=== PATIENT | female | born 1930 | race Caucasian/White ===

== ENCOUNTER 2017-01-23 12:18 | Inpatient (IN) | payer BC, MEDICARE ==
[2017-01-23 13:23] LABS: #Lymphocytes 0.5 thou/uL (1.20-3.40); #Monocytes 0.7 thou/uL (0.11-0.59); #Neutrophils 10.1 thou/uL (1.40-6.50); %Eosinophils 0.1 % (0.0-10.0); %Lymphocytes 4.6 % (21.0-51.0); %Monocytes 6.3 % (0.0-10.0); Hematocrit 41.7 % (36.0-47.0); Mean Platelet Volume 7.6 fL (7.4-10.4); Red Blood Cell (RBC) Count 4.13 mill/uL (4.20-5.40); White Blood Cell (WBC) Count 11.4 thou/uL (4.8-10.8)
[2017-01-23 13:49] LABS: ALT (SGPT) 16 U/L (8-55); AST (SGOT) 22 U/L (5-34); Alkaline Phosphatase 67 U/L (40-150); Anion Gap 10 mmol/L (10-20); BUN (Urea Nitrogen) 15 mg/dL (9.8-20.1); Bilirubin, Total 0.7 mg/dL (0.2-1.2); Calc. Creatinine Clearance 0 mL/min (70-130); Calcium 10.4 mg/dL (7.8-10.44); Carbon Dioxide 29 mmol/L (23-31); Chloride 101 mmol/L (98-107); Estimated GFR-MDRD 69; Globulin 3.5 g/dL (2.4-3.5); Lipase 12 U/L (8-78); Protein, Total 7.5 g/dL (6.0-8.3)
[2017-01-23] MEDS ORDERED: Iopamidol 370 76% 100 ML VIAL ONE (13:57)
--- NOTE | 2017-01-23 15:31 | RAD ---
TWO VIEWS LEFT HIP: History: Trauma. Fall. Left hip pain. FINDINGS: AP and frogleg views of the left hip obtained and demonstrate no evidence of left hip fractures, subl uxations, or bony lesions. There may be an area of lucency in the left iliac crest. IMPRESSION: 1. Possible left iliac crest lytic lesion. Correlation with CT of pelvis is recommended. 2. No other left hip abnormalities seen. No evidence of acute left hip fracture seen. POS: [facility]
--- NOTE | 2017-01-23 15:32 | RAD ---
AP CHEST: History: Dyspnea, history of fall. FINDINGS: The lungs are well aerated. No evidence of active intrathoracic disease seen. No evidence of effusion s, pneumonia or pneumothorax seen. Calcification of the aorta is seen. IMPRESSION: Calcification of the aorta. Otherwise, unremarkable AP view chest. POS: [facility]
--- NOTE | 2017-01-23 15:34 | RAD ---
AP PELVIS: History: Multiple falls, left pelvic pain. FINDINGS: There is an area of lucency over the left iliac wing. This may represent a lytic lesion versus stool in the colon. No evidence of acute pelvic fractures or bony lesions seen. IMPRESSION: Possible lytic lesion in the left iliac bone versus gas in the colon. No other acute abnormality is s een. POS: [facility]
[2017-01-23 15:54] LABS: Troponin I 0.017 ng/mL (< 0.028)
[2017-01-23 16:41] LABS: PTT 28.2 SEC (22.9-36.1); Prothrombin Time 13.6 SEC (12.0-14.7)
[2017-01-23 17:25] LABS: Bilirubin Negative (Negative); Blood, Urine Trace (Negative); Glucose, Urine (Dipstick) Negative (Negative); Ketone, Urine 40 mg/dL (Negative); Nitrite Negative (Negative); Protein, Urine (Dipstick) 100 mg/dL (Neg-Trace)
[2017-01-23 17:28] LABS: Bacteria/HPF Rare-Few HPF (None Seen); Hyaline Casts/LPF 0-3 HYALINE CAST LPF (0-3 Hyaline)
[2017-01-23 17:36] LABS: RBC/HPF 0-3 HPF (0-3)
--- NOTE | 2017-01-23 17:50 | CT ---
CT ANGIOGRAM OF THE CHEST: History: Assess pulmonary artery embolism. Nausea. Dizziness. Dyspnea. Comparison: None. Technique: CT angiogram of the chest was performed in the axial plane. Bilateral oblique and coronal 3D reformatted images are submitted for interpretation. FINDINGS: There is no mediastinal mass, lymphadenopathy or hematoma. Heart size is upper normal. No significant pericardial fluid. The visualized aorta has an overall normal caliber. Atherosclerosis is noted. No periaortic fat stranding. Visualized upper solid organs are unremarkable. There is dependent atelectatic change in the lung parenchymal. Minimal ground glass opacities in both lower lobes. Subsegmental atelectasis and scarring in both lower lobes. No suspicious masses. No con solidation. No pleural effusion. No pneumothorax. Trachea and central bronchi are patent. Adequate contrast opacification of pulmonary arterial system at the level of the segmental arteries. With regard to the left pulmonary arterial system no filling defect to suggest thromboembolism. There is a filling defect involving segmental branches involving the right lower lobe. There are no lytic or blastic lesions in the osseous structures. IMPRESSION: 1. Segmental branch pulmonary artery emboli involving the right lower lobe. Results of study pratibha barrientos with Dr. Santos 12-4-17 at 5:31 p.m. Code CR. POS: [facility]
[2017-01-23] MEDS ORDERED: Enoxaparin Sodium 60 MG/0.6 ML SYRINGE ONE (18:36)
[2017-01-23 19:28] LABS: Troponin I 0.027 ng/mL (< 0.028)
[2017-01-23 21:53] LABS: Troponin I 0.027 ng/mL (< 0.028)
--- NOTE | 2017-01-23 21:58 | PDOC.EVN ---
Event Note - Event Note Event Note: [id number] H&P Dictated 1. Rt side PE 2. UTI 3. Left iliac lesion 4. HTN 5. Asthma plan: see orders
[2017-01-23] MEDS ORDERED: Acetaminophen 325 MG TAB PO PRN (22:48)
[2017-01-23] MEDS ORDERED: Ondansetron HCl/PF 4 MG/2 ML Vial IVP PRN (22:48)
--- NOTE | 2017-01-23 23:56 | CT ---
PELVIC CT WITHOUT CONTRAST: History: Multiple falls, pain. Evaluate for fracture. Sharp pain in the left femur when standing. Comparison: None. Technique: Noncontrast pelvic CT is performed in the axial plane. Reformatted images are submitted fo r interpretation. FINDINGS: Visualized alimentary canal is unremarkable. There is atherosclerosis in the visualized aorta and bibi ac arteries. Symmetric attenuation of the psoas muscles. There is evidence of colonic diverticulosis, without evidence of diverticulitis. Normal caliber appendix is identified. Contrast is noted in the dependent portion of the urinary bladder. There is diffuse bone demineralization. No sacral fractures. Sacral ala are preserved. There is vacuu m joint phenomenon in both sacroiliac joints. The bony pelvis is intact. There is mild degenerative change in both hips. Right hip is unremarkable. There is sharp angulation with minimal deformity involving the superior lateral aspect of the left subcapital region. The possi bility of a fracture in this region is raised. Confirmation with MRI may be beneficial. No evidence of a pubic ramus fracture. There is no evidence of a lytic lesion in the left iliac bone, as suggested on previous radiograph. T here is evidence of bone demineralization with patchy areas of fatty marrow. IMPRESSION: 1. Possible left subcapital fracture with cortical irregularity. POS: [facility]
[2017-01-24 04:17] LABS: Anion Gap 13 mmol/L (10-20); BUN (Urea Nitrogen) 12 mg/dL (9.8-20.1); Calc. Creatinine Clearance 0 mL/min (70-130); Calcium 9.7 mg/dL (7.8-10.44); Carbon Dioxide 24 mmol/L (23-31); Chloride 104 mmol/L (98-107); Estimated GFR-MDRD 87
[2017-01-24 04:24] LABS: Band 1 % (5-11); Hematocrit 39.8 % (36.0-47.0); Mean Platelet Volume 8.6 fL (7.4-10.4); Neutrophil 64 % (42-75); Red Blood Cell (RBC) Count 3.93 mill/uL (4.20-5.40)
--- NOTE | 2017-01-24 05:56 | HP ---
DATE OF ADMISSION: 01/23/2017 CHIEF COMPLAINT: Fall. HISTORY OF PRESENT ILLNESS: Patient is an 86-year-old female with past medical history of hypertensi on, asthma, now came to the hospital because of fall. Patient said she lives at home. She went and picked her dog from 's house and while she came back, when she tried to get out of the car, th e dog jumped out and then she tried to get out of the car and she lost balance and she fell down. Si nce then she was having left hip pain. Pain is constant, worsens with movement, moderate in intensit y. Denies any fever, denies any chills, denies any cough, denies sputum production. Denies any head injury. The patient's pain persisted, that is why the son brought her to the ER. Upon ER arrival, the patient was found to be in atrial fibrillation RVR, so patient was given Cardizem 20 mg IV x2 dos es in the ER. Patient denies any chest pain, denies any palpitations, denies any nausea, denies any vomiting, denies any sputum production. PAST MEDICAL HISTORY: As per HPI. PAST SURGICAL HISTORY: Hysterectomy and bilateral knee surgeries. SOCIAL HISTORY: Denies smoking, denies alcohol, denies any drugs. FAMILY HISTORY: Positive for heart problems. REVIEW OF SYSTEMS: Constitutional: Denies any fever, denies any chills. Eyes: Denies vision problems. Ears: Denies any hearing loss. Neck: Denies any neck pain. Cardiovascular: Denies any chest pain. Denies any palpitations. Respiratory: Denies any cough, denies sputum production. Gastrointestinal: Denies a ny nausea, vomiting. Musculoskeletal: Positive for left hip pain. Integumentary: Denies any rash. Psychiatry: Denies anxiety. Cranial nerve system: Denies syncope. All other review of systems a re reviewed and are negative. PHYSICAL EXAMINATION: CONSTITUTIONAL/VITAL SIGNS: At the time of H&P performed, blood pressure is 113/70, heart rate of 10 5, respiratory rate 18. GENERAL APPEARANCE: Patient appears tired, anterior nares patent. HEENT: Normal. Ears normal. Teeth intact. Tongue is moist. NECK: Supple, no JVD. CARDIOVASCULAR: S1, S2 present, irregular, no murmurs, no rubs, no gallops, mildly tachycardic. RESPIRATORY: Diminished breath sounds bilaterally. No wheezing, no rhonchi. Breath sounds bilatera lly. GASTROINTESTINAL: Abdomen is soft, nontender, no guarding, no organomegaly, no masses felt. MUSCULOSKELETAL: Left hip tender to palpate, able to move PSYCHIATRIC: Mood appropriate at this time. CRANIAL NERVE SYSTEM: Cranial nerves intact. Follows commands. Strength intact, sensory intact. LABORATORY DATA: At the time of H&P performed, white count of 11.4, hemoglobin 13.9, platelet count is 250. PT 13.6, INR 1.0. BMP showed sodium 136, potassium 3.9, chloride 101, CO2 of 29, BUN of 1 5, creatinine 0.79. BNP 257, troponin 0.027. Lipase 12. CT chest positive for segmental branch pul monary artery embolism involving the right lower lobe. Pelvis x-ray positive for left iliac crest ly tic lesion seen. ASSESSMENT AND PLAN: The patient is an 86-year-old female. 1. Right-side pulmonary embolism. ED physician restarted the Lovenox. We will continue Lovenox. W e will go ahead and consult oncologist of the patient. We will monitor the patient closely. 2. Atrial fibrillation with rapid ventricular response. Heart rate controlled at this time. We radha l monitor heart rate. We will place patient on tele. We will get Cardiology to evaluate the patient . 3. Left iliac crest lesion, rule out multiple myeloma. We will go ahead and get CT pelvis to evalua te the hip lesion. We will wait for Oncology input. We will go ahead and get skeletal survey if kishan ilable. We will monitor the patient closely. 4. History of hypertension, monitor blood pressures, continue home medications. 5. History of asthma, continue breathing treatments. 6. Urinary tract infection. Plan to start patient on IV antibiotics. The case was discussed in detail with the patient.
[2017-01-24 08:33] LABS: Troponin I 0.047 ng/mL (< 0.028)
[2017-01-24] MEDS ORDERED: Heparin 1,000 UNITS/ML VIAL ONE (09:15)
[2017-01-24] MEDS ORDERED: Famotidine 20 MG TAB ONE (09:15)
[2017-01-24] MEDS ORDERED: Enoxaparin Sodium 60 MG/0.6 ML SYRINGE ONE (09:17)
--- NOTE | 2017-01-24 13:04 | CON ---
DATE OF CONSULTATION: 01/24/2017 REQUESTING PHYSICIAN: Dr. Randy mckeon. CONSULTING PHYSICIAN: Dr. Clemente Diamond. REASON FOR CONSULTAITON: Left hip pain. HISTORY OF PRESENT ILLNESS: Ms. Vizcarra is an 86-year-old white female who was admitted yesterday to the medicine service after she fell getting out of a truck. She had left thigh discomfort, so a CT examination was carried out of the pelvis, which demonstrated a lesion unexplained origin and she was also found to be in atrial fibrillation with rapid ventricular response and I believe there is some suspicion of a right-sided pulmonary embolism as well. The CT demonstrated evidence of possibly a no ndisplaced left subcapital femoral neck fracture, which was difficult to discern, but our service was consulted for evaluation of this. The patient has been able to stand and walk since hospitalization . She does admit to a little bit of mid posterior thigh discomfort on the left. It is amplified sli ghtly with walking, but she has been able to walk for the last 24 hours in and around her room and sh e has no pain when she sits. PAST MEDICAL HISTORY: Significant for acute segmental branch pulmonary embolism in the right lower l obe and left iliac crest lesion and atrial fibrillation with rapid ventricular response. PHYSICAL EXAMINATION: NEUROLOGIC: Patient is examined in the seated position. She is able to stand without any pain or pr oblems. She can squat down without any discomfort. I can only reproduce provocative pain with inter nal and external femoral rotation, but it appears to be mild at best. Palpation along the thigh does not reproduce or provoke any discomfort. She is stable and there appear to be no underlying instabi lity. There is no significant swelling, erythema or bruising noted. She is neurovascularly intact i n the left lower extremity as well as her right. She stands comfortably. IMAGING STUDIES: CT examination of the pelvis, there is a question of a subcapital cortical defect. There does not appear to be any displacement. IMPRESSION: 1. I suspect a periosteal contusion from a fall. Patient can stand, walk and bear weight without si gnificant limp problem. The physical examination is not suggestive of a fracture of the femur or fem oral head at this point. 2. Atrial fibrillation with rapid ventricular response, resolved. 3. Right-sided pulmonary embolism, currently under treatment. PLAN: At this point, I will allow the patient to eat. I have no surgical plans, but we will revisit her clinically for serial examinations to see if we should proceed with further studies to include M RI of the left hip. We will reexamine the patient this evening.
--- NOTE | 2017-01-24 13:45 | PDOC.PN ---
- Subjective Encounter Start Date: 01/24/17 Encounter Start Time: 14:00 -: old records requested/rev Pt seen and examined, chart reviewed in its entirety. Case discussed with Mr Sanchez and Dr Diamond face to face. No F/C, no N/V/D/C,no CP or SOB. Pt with fall and left hip pain. Xray neg, but CT questionable for SC fracture. awaiting ortho review. during workup in ER, CTA positive for PE. Starte franci lovenox. Pt noted to be in Afib no CP, no palpitations 10 point ROS performed and neg for all systems except as above - Objective MAR Reviewed: Yes Result Diagrams: 01/24/17 03:23 01/24/17 03:23 Radiology Reviewed by me: Yes EKG Reviewed by me: Yes Phys Exam - Physical Examination Constitutional: NAD HEENT: PERRLA, moist MMs, sclera anicteric, oral pharynx no lesions Neck: no nodes, no JVD, supple, full ROM Respiratory: no wheezing, no rales, no rhonchi, clear to auscultation bilateral Cardiovascular: no significant murmur, no rub, irregular Gastrointestinal: soft, non-tender, no distention, positive bowel sounds Musculoskeletal: no edema, pulses present left hip a little tender Neurological: non-focal, normal sensation, moves all 4 limbs Lymphatic: no nodes Psychiatric: normal affect, A&O x 3 Skin: no rash, normal turgor, cap refill <2 seconds Dx/Plan (1) Pulmonary embolus, right Code(s): I26.99 - OTHER PULMONARY EMBOLISM WITHOUT ACUTE COR PULMONALE Status : Acute (2) Fall on same level as cause of accidental injury Code(s): W18.30XA - FALL ON SAME LEVEL, UNSPECIFIED, INITIAL ENCOUNTER Status : Acute (3) Left hip pain Code(s): M25.552 - PAIN IN LEFT HIP Status: Acute (4) Paroxysmal atrial fibrillation Code(s): I48.0 - PAROXYSMAL ATRIAL FIBRILLATION Status: Acute - Plan cont current plan of care * . folowup on ortho recs. Doubt UTI. followup on onc, cardiology, and ortho recommendations as ordered by electromechanical engineer
[2017-01-24] MEDS: Enoxaparin Sodium 60 MG/0.6 ML SYRINGE SC SCH ×2 (14:41→20:28)
[2017-01-24] MEDS: Meropenem 1 GM in Sodium Chloride 0.9% 100 ML IVPB SCH ×3 (14:41→22:32)
[2017-01-24] MEDS: Sodium Chloride 0.9% 1,000 ML IV SCH (14:41)
[2017-01-24] MEDS: Famotidine 20 MG TAB PO SCH ×2 (14:42→20:25)
--- NOTE | 2017-01-24 17:01 | CON ---
DATE OF CONSULTATION: 01/24/2017 HISTORY OF PRESENT ILLNESS: The patient is an 86-year-old woman who presents after having a fall and was noted to be in irregular heart rhythm. The patient has a previous history of coronary artery disease. In 1991 ,he underwent a cardiac catheterization and subsequently underwent PTCA of a 90% LAD lesion. The patient subsequently has done very well. She has had no further cardiac episodes. The patient recently had a fall. She was noted to be in irregular heart rhythm. The patient denies having any palpitations. The patient denies having any chest discomfort. She reports having dyspnea. She denies having any PND or orthopnea. PAST MEDICAL HISTORY: 1. Hypertension. 2. CAD. PAST SURGICAL HISTORY: Hysterectomy and knee surgery. SOCIAL HISTORY: Former smoker. ALLERGIES: No known drug allergies. FAMILY HISTORY: Positive family history of heart disease. Father had coronary artery disease. MEDICATIONS ON ADMISSION: Cardizem 240 daily, Evista 60 daily, zafirlukast 20 daily. REVIEW OF SYSTEMS: Ten-point system otherwise unremarkable. No history of easy bruising or bleeding, bright red blood per rectum, hematuria, constipation , diarrhea. PHYSICAL EXAMINATION: GENERAL: Elderly woman, in no acute distress. VITAL SIGNS: Blood pressure 140/80, heart rate was 110 and irregular. NECK: No jugular venous distention. LUNGS: Clear to auscultation. HEART: Irregular rate and rhythm, normal S1, S2, no murmurs. ABDOMEN: Nondistended. EXTREMITIES: Showed no edema. SKIN: Warm and dry. NEUROLOGIC: Nonfocal. VASCULAR: Radial pulses are 2+. LABORATORY RESULTS: Her sodium 137, potassium 3.9, chloride 104, bicarbonate 24 , BUN 12, creatinine 0.65, glucose is 87, troponin 0.04. White blood cell count was 8.0, hemoglobin 13.3, hematocrit 39.3 and her platelets were 250. Her EKG revealed her to have multifocal atrial tachycardia with a nonspecific ST -T wave abnormality. CT scan revealed pulmonary emboli. IMPRESSION: 1. Multifocal atrial tachycardia. 2. Pulmonary embolus. 3. History of asthma. 4. Hypertension. 5. Coronary artery disease. This patient presented with a fall and was found to have suffered a pulmonary embolus. The patient is in multifocal atrial tachycardia. We would treat the patient with Cardizem. We will follow this patient with you through her hospitalization. [facility]
[2017-01-25 06:24] LABS: #Basophils 0.1 thou/uL (0.0-0.2); #Eosinphils 0.1 thou/uL (0.0-0.7); #Lymphocytes 2.1 thou/uL (1.20-3.40); #Monocytes 1.1 thou/uL (0.11-0.59); %Basophils 0.6 % (0.0-1.0); %Lymphocytes 22.6 % (21.0-51.0); %Monocytes 11.3 % (0.0-10.0); Hematocrit 39.3 % (36.0-47.0); Mean Platelet Volume 8.6 fL (7.4-10.4); White Blood Cell (WBC) Count 9.3 thou/uL (4.8-10.8)
[2017-01-25] MEDS: Meropenem 1 GM in Sodium Chloride 0.9% 100 ML IVPB SCH (06:29)
[2017-01-25 06:32] LABS: Anion Gap 11 mmol/L (10-20); BUN (Urea Nitrogen) 8 mg/dL (9.8-20.1); Calc. Creatinine Clearance 57 mL/min (70-130); Calcium 9.5 mg/dL (7.8-10.44); Carbon Dioxide 28 mmol/L (23-31); Chloride 104 mmol/L (98-107); Estimated GFR-MDRD 87; Magnesium 2.3 mg/dL (1.6-2.6)
[2017-01-25] MEDS ORDERED: Fluticasone Propionate Nasal Spray 16 gm Bottle NASAL PRN (08:19)
[2017-01-25] MEDS ORDERED: Albuterol Sulfate 2.5 mg/3 ml Neb NEB PRN (08:20)
[2017-01-25] MEDS ORDERED: ZAFIRLUKAST 20 MG PO SCH (09:00)
[2017-01-25] MEDS ORDERED: Montelukast Sodium 10 mg Tablet PO SCH (09:00)
[2017-01-25] MEDS ORDERED: PROVENTIL INHALER 6.7 G (200 INHALATIONS) INH PRN (09:03)
[2017-01-25] MEDS: Cephalexin 250 MG CAP PO SCH ×2 (09:37→14:54)
[2017-01-25] MEDS: Enoxaparin Sodium 60 MG/0.6 ML SYRINGE SC SCH (09:38)
[2017-01-25] MEDS: Sodium Chloride 0.9% 1,000 ML IV SCH (14:57)
[2017-01-25 16:31] VITALS: BP 143/70; TEMP 99.4
[2017-01-25] MEDS ORDERED: Rivaroxaban 15 MG TAB PO SCH (17:00)
[2017-01-25] MEDS ORDERED: Famotidine 20 MG TAB PO SCH (21:00)
== END 2017-01-25 18:43 | disposition home or self-care (01) | DRG 176 ==
LOC: ERS 12:18 → ERHOLD 17:51 → 2NO 01-24 12:09
PROVIDERS: ADMIT Internal Medicine; ATTEND Internal Medicine
DX: I26.99 Other pulmonary embolism without acute cor pulmonale (principal); I48.91 Unspecified atrial fibrillation; N39.0 Urinary tract infection, site not specified; I10 Essential (primary) hypertension; Z91.81 History of falling; I25.10 Atherosclerotic heart disease of native coronary artery without angina pectoris; E78.5 Hyperlipidemia, unspecified; Z87.891 Personal history of nicotine dependence; J45.909 Unspecified asthma, uncomplicated; S30.0XXA Contusion of lower back and pelvis, initial encounter; W19.XXXA Unspecified fall, initial encounter
CPT/HCPCS: 36415; 71010; 71275; 72170; 72192; 80048; 80053; 81003; 81015; 82553; 83690; 83735; 83880; 84484; 85025; 85379; 85610; 85730; 87077; 87086; 87186; 93005; 93306; 94640; 96361; 96372; 96374; 96375; 96376; A4216; G8978-GP-CI; G8979-GP-CI; G8980-GP-CI; G8987-GO-CK; G8988-GO-CI; J0696; J1644; J1650; J2185; J7050

== ENCOUNTER 2017-01-29 04:19 | Inpatient (IN) | payer MEDICARE ==
[2017-01-29 05:14] LABS: #Eosinphils 0.1 thou/uL (0.0-0.7); #Lymphocytes 1.5 thou/uL (1.20-3.40); #Monocytes 0.8 thou/uL (0.11-0.59); %Basophils 0.5 % (0.0-1.0); %Eosinophils 1.6 % (0.0-10.0); %Lymphocytes 17.8 % (21.0-51.0); %Monocytes 9.7 % (0.0-10.0); Mean Platelet Volume 7.8 fL (7.4-10.4); Red Blood Cell (RBC) Count 4.11 mill/uL (4.20-5.40); White Blood Cell (WBC) Count 8.5 thou/uL (4.8-10.8)
[2017-01-29 05:19] LABS: PTT 32.7 SEC (22.9-36.1); Prothrombin Time 14.5 SEC (12.0-14.7)
[2017-01-29 05:36] LABS: Anion Gap 13 mmol/L (10-20); BUN (Urea Nitrogen) 11 mg/dL (9.8-20.1); CK (CPK) 83 U/L (29-168); Calc. Creatinine Clearance 0 mL/min (70-130); Calcium 10.3 mg/dL (7.8-10.44); Carbon Dioxide 26 mmol/L (23-31); Chloride 102 mmol/L (98-107); Estimated GFR-MDRD 76
[2017-01-29 05:39] LABS: Troponin I 0.018 ng/mL (< 0.028)
[2017-01-29] MEDS ORDERED: HYDROcodone/Acetaminophen 5/325 mg Tablet ONE (06:37)
[2017-01-29 06:43] LABS: Bilirubin Negative (Negative); Blood, Urine Negative (Negative); Glucose, Urine (Dipstick) Negative (Negative); Ketone, Urine Negative (Negative); Nitrite Negative (Negative); Protein, Urine (Dipstick) Negative (Neg-Trace)
[2017-01-29] MEDS ORDERED: Methocarbamol 1 GM in Sodium Chloride 0.9% 250 ML 250 ML IVPB SCH (07:45)
--- NOTE | 2017-01-29 08:06 | RAD ---
CHEST 1 VIEW: Date: 01/29/17 COMPARISON: 01/23/17. HISTORY: Fall. Pain. FINDINGS: Atherosclerosis of aorta. Normal cardiac silhouette. Pulmonary vessels and hilum are normal. Costophr enic angles are clear. No masses or consolidation. Chronic changes are noted. No pneumothorax or osse ous abnormalities. Mild bone demineralization is identified. Stable degenerative changes of the spine . IMPRESSION: 1. No post-traumatic sequelae. 2. Atherosclerosis. POS: [facility]
--- NOTE | 2017-01-29 08:53 | RAD ---
LEFT HIP 2 VIEWS: Date: 01/29/17 HISTORY: Fall. Pain. Trauma. COMPARISON: 01/23/17. CORRELATION: Pelvic CT dated 01/23/17. FINDINGS: There is an interval sclerosis involving the left subcapital region with slight displacement, compati ble with a subacute fracture. IMPRESSION: Subacute fracture involving the left subcapital region. Results of study discussed with Dr. Perez on 01/29/17 at 0823 hours. CODE CR. POS: [facility]
--- NOTE | 2017-01-29 09:19 | RAD ---
RIGHT HIP 2 VIEWS: Date: 01/29/17 HISTORY: Fall. Trauma. Pain. COMPARISON: None. FINDINGS: Contour of the right femoral head is maintained. No fracture. Moderate loss of joint space height. Visualized bony pelvis is intact. IMPRESSION: No fracture. POS: [facility]
[2017-01-29] MEDS ORDERED: Morphine 2 mg/2ml in 0.9% NaCl PF SYRINGE ONE (09:20)
--- NOTE | 2017-01-29 10:27 | RAD ---
1 VIEW PELVIS: Date: 01/29/17 COMPARISON: 01/23/17. FINDINGS: The bony pelvis is intact. Right hip is unremarkable. There is evidence of a left subcapital fracture with sclerosis. IMPRESSION: Left subcapital fracture. POS: [facility]
[2017-01-29] MEDS ORDERED: Cyclobenzaprine 10 MG TAB PO PRN (11:33)
[2017-01-29] MEDS ORDERED: Ondansetron ODT 4 MG TAB PO PRN (11:33)
[2017-01-29] MEDS ORDERED: Ondansetron HCl/PF 4 MG/2 ML Vial IVP PRN ×2 (11:33→15:25)
[2017-01-29] MEDS ORDERED: Dextrose 50% Abboject 50 ML SYRINGE SLOW IVP PRN (11:33)
[2017-01-29] MEDS ORDERED: Dextrose 5% in Water 1,000 ML IV PRN (11:33)
[2017-01-29] MEDS ORDERED: traMADol HCl 50 MG TAB PO PRN (11:33)
[2017-01-29] MEDS ORDERED: ISOVUE-370 76%-LOCM 1 ML ONE (11:46)
[2017-01-29] MEDS ORDERED: Morphine 2 mg/2ml in 0.9% NaCl PF SYRINGE IVP PRN (12:00)
[2017-01-29] MEDS ORDERED: Propofol 200 MG/20 ML VIAL ONE (12:05)
[2017-01-29] MEDS ORDERED: Morphine 4 MG/ML VIAL IV PRN (12:15)
[2017-01-29] MEDS: Acetaminophen 325 MG TAB PO SCH ×3 (12:43→22:12)
[2017-01-29] MEDS: Ibuprofen 600 MG TAB PO SCH ×2 (12:43→22:15)
[2017-01-29] MEDS: Sodium Chloride 0.9% 1,000 ML IV SCH (12:45)
--- NOTE | 2017-01-29 13:14 | HP ---
DATE OF ADMISSION: 01/29/2017 REQUESTING PHYSICIAN: Dr. Perez. ATTENDING SURGEON: Dr. Snow. CONSULTATION: Orthopedics, Dr. Bowden. HISTORY OF PRESENT ILLNESS: The patient is an 86-year-old woman who has reportedly fell at home. She is amnestic to the events, but was reportedly found by neighbors. Even the story around that is unclear as there is no one here to explain that situation, the patient again is amnestic to t he events. When she underwent evaluation and examination in the emergency department, she was noted to have a hip fracture, at which time we were asked to evaluate the patient for admission and obtain orthopedic consultation. ALLERGIES: None. CURRENT MEDICATIONS: Diltiazem, fluticasone, ProAir, raloxifene, zafirlukast and Xarelto. PAST MEDICAL HISTORY: Asthma, hypertension, atrial fibrillation. PAST SURGICAL HISTORY: Hysterectomy. SOCIAL HISTORY: Patient lives at home alone. Denies drug, alcohol or tobacco use. REVIEW OF SYSTEMS: A 10-point review of systems is negative, unless otherwise stated. Of note, the patient was medicated with 4 mg of morphine prior to my arrival and was extremely sleepy, but accordi ng to the nurse, patient prior to that medication was alert and oriented and verbally appropriate, on ly amnestic to the events surrounding her fall. PHYSICAL EXAMINATION: VITAL SIGNS: Blood pressure 137/71, heart rate 75, respirations 18 and oxygen saturation is 100% on 2 liters via nasal cannula. GENERAL: The patient is resting comfortably in bed. When awakened, she is alert and oriented x3, bu t does appear very drowsy. Allyn coma scale is 14. HEENT: Unremarkable. Head is atraumatic, normocephalic. Eyes: Extraocular motion intact. PERRLA bilaterally. Ears are atraumatic without discharge. Nose is atraumatic without discharge. Orophary nx is clear. NECK: Nontender. Trachea is midline. No JVD. CHEST: Clear to auscultation with good inspiratory and expiratory effort. HEART: Irregularly irregular consistent with her atrial fibrillation. ABDOMEN: Soft, flat, and nontender. PELVIS: Stable. The patient does have tenderness to her left hip. EXTREMITIES: Neurovascularly intact x4. BACK: By report is atraumatic and nontender. LABORATORY DATA: White blood cell count 8.5, hemoglobin 13.8, hematocrit 42, platelets 287. Sodium 137, potassium 4.4, chloride 102, CO2 26, BUN 11, creatinine 0.73, glucose 115. CK 83 and CK-MB 2.7. Troponin 0.018, PTT 33, PT 15, and INR 1.1. RADIOGRAPHS: Two views of the right hip showed no fracture. Two views of the left hip showed a suba cute fracture involving the left subcapital region. AP chest shows no post-traumatic sequelae. ASSESSMENT AND PLAN: 1. Status post fall. 2. Left subcapital hip fracture. 3. Acute traumatic pain. 4. History of atrial fibrillation on Xarelto. Plan will be to admit the patient to the surgical floor, await evaluation by the orthopedic surgeon i n regards to operative intervention. The patient will be made n.p.o. until a decision is made. The evaluation, examination, radiographic and laboratory findings were all discussed with Dr. Snow at the time of dictation.
[2017-01-29] MEDS ORDERED: Neomycin-Polymyxin 1 ML AMP ONE (13:42)
[2017-01-29] MEDS ORDERED: Diprivan 20 ML ONE (13:54)
[2017-01-29] MEDS ORDERED: CEFAZOLIN/Water 2 GM/20 ML SYRINGE ONE (14:21)
--- NOTE | 2017-01-29 14:31 | HP ---
ADDENDUM This is an addendum to the H and P dictated by Rylan Mondragon, trauma PA. For further details, please se e his report. In summary, the patient is an 86-year-old frail elder with multiple falls recently, who came to the ospital on the of this month with a complaint of dyspnea, weakness and left hip pain. She had a possible cortical irregularity in subcapital area on CT, but no definite fracture was seen on plain f ilms. She was seen by Orthopedics and felt to be safe to ambulate, they felt that this likely repres ented a contusion. She was found to be in atrial fibrillation with a branch pulmonary artery embolis m and was started on Xarelto and Cardizem. She converted to normal sinus rhythm and was discharged [facility] on the . She came back to the hospital early this morning after being found down by her famil y. The patient herself does not remember falling, does not remember being found and does not remembe r coming into the hospital. She is oriented to self and place, but not to time or situation. Curren ross, she denies any pain, but on her arrival, she was complaining of left hip pain and imaging showed a subcapital subacute fracture. She denies shortness of breath or chest pain and is very somnolent but will arouse to answer questions. PAST MEDICAL HISTORY: Hypertension, recently diagnosed atrial fibrillation and pulmonary embolism, c oronary artery disease status post stenting many years ago, and asthma. PAST SURGICAL HISTORY: Hysterectomy, bilateral knee surgery, coronary artery stenting in 1991. SOCIAL HISTORY: She is a former smoker, but no recent history of tobacco, alcohol or drug abuse. ALLERGIES: She has no known drug allergies. FAMILY HISTORY: She has a family history of heart disease. MEDICATIONS: At the time of her discharge on the included Xarelto, Keflex, raloxifene, albuterol inhaler, Flonase, diltiazem, zafirlukast. REVIEW OF SYSTEMS: Limited due to patient's somnolent, but she denies chest pain, abdominal pain, na usea, shortness of breath or pain in her left hip except with movement. PHYSICAL EXAMINATION: VITAL SIGNS: 97.7, heart rate 80, respirations 22, 98% saturated on nasal cannula, blood pressure 15 3/82. GENERAL: Reveals an extremely frail appearing elderly woman in no acute distress, sleeping, but arou sable to voice and painful stimuli. She quickly falls back asleep when she is not being stimulated. HEENT: Unremarkable. Head is normocephalic, atraumatic. Pupils are equal. NECK: Supple, without lymphadenopathy or thyroid nodules. HEART: Regular in its rate and rhythm without murmurs, rubs or gallops. LUNGS: Clear to auscultation bilaterally. EKG in the ER showed normal sinus rhythm with occasional PACs. ABDOMEN: Soft, nontender, nondistended. Pelvis is nontender to palpation. EXTREMITIES: She does have pain with movement of the left hip. No pain with movements of the other extremities. No visible deformities or bruising. She has normal pedal pulses and no edema. NEUROLOGIC: Unable to evaluate due to the patient's somnolent state. PSYCHIATRIC: Alert to somnolent but oriented to person and place, but not to situation or time. LABORATORY DATA: Her white count is normal at 8.5, hematocrit is normal at 42, platelets are 287. E lectrolytes are unremarkable. BUN and creatinine are normal. CT images were obtained of the head, n kelsey, chest, abdomen, and pelvis due to the patient's history of fall and Xarelto. This did not show any acute abnormalities except for the left subcapital femur fracture and this was confirmed on hip a nd pelvis x-ray. ASSESSMENT: Left subcapital hip fracture and frail elderly woman with multiple recent falls and rece nt atrial fibrillation and pulmonary embolism, on Xarelto. Orthopedics has been consulted for manage ment of the subcapital hip fracture, but her overall prognosis is very guarded due to her medical com orbidities.
[2017-01-29] MEDS ORDERED: Bupivacaine/Epinephrine 0.25% 30 ML VIAL ONE (14:50)
--- NOTE | 2017-01-29 15:16 | CT ---
PRELIMINARY REPORT/[facility]/EMERGENCY AFTER HOURS PROCEDURE: EXAM: CT Head Without Intravenous Contrast EXAM DATE/TIME: Exam ordered 01/29/2017 5:27 AM CLINICAL HISTORY: 86 years old, female; Injury or trauma; Fall; Initial encounter; Blunt trauma (contusions or hematoma s); Consciousness not specified; Patient HX: S/P fall TECHNIQUE: Axial computed tomography images of the head/brain without intravenous contrast. COMPARISON: No relevant prior studies available. FINDINGS: Brain: There are scattered foci of hypoattenuation within the periventricular and subcortical white m atter compatible with mild chronic microvascular ischemic change. There is mild chronic microvascular ischemic change. No hemorrhage. Ventricles: Normal. No ventriculomegaly. Bones/joints: There is a nonspecific air-fluid level within the RIGHT maxillary sinus which may repre sent inflammation however hemorrhage from acute fracture cannot be excluded. Soft tissues: Normal. Sinuses: Unremarkable as visualized. No acute sinusitis. Mastoid air cells: Unremarkable as visualized. No mastoid effusion. IMPRESSION: 1. No acute intracranial hemorrhage. 2. There is a nonspecific air-fluid level within the RIGHT maxillary sinus which may represent inflam mation however hemorrhage from acute fracture cannot be excluded. Thank you for allowing us to participate in the care of your patient. Dictated and Authenticated by: Jaylon Guevara MD 01/29/2017 6:12 AM Central Time ([place] & [place]) FINAL REPORT CT HEAD NONCONTRAST: Date: 01/29/17 INDICATION: Trauma. FINDINGS/IMPRESSION: I agree with the preliminary report given by Terry. Compared to 11/01/16. No acute intracranial hemorrhage or mass effect. Mild inspissated debris/fluid level of posterior right maxillary sinus. Correlate clinically. Mild chronic microvascular ischemic disease is present.
--- NOTE | 2017-01-29 15:19 | CT ---
PRELIMINARY REPORT/[facility]/EMERGENCY AFTER HOURS PROCEDURE: EXAM: CT Abdomen and Pelvis With Intravenous Contrast EXAM DATE/TIME: Exam ordered 01/29/2017 5:30 AM CLINICAL HISTORY: 86 years old, female; Injury or trauma; Fall; Initial encounter; Blunt; Generalized; Patient HX: S/P fall TECHNIQUE: Axial computed tomography images of the abdomen and pelvis with intravenous contrast. Coronal reformatted images were created and reviewed. CONTRAST: 70 mL of ISOVUE administered intravenously. COMPARISON: No relevant prior studies available. FINDINGS: Lower thorax: There is subpleural atelectasis of the dependent portions of the lungs. ABDOMEN: Liver: There are multiple liver hypodensities that cannot be further characterized on the current exa mination. Gallbladder and bile ducts: The gallbladder is normal. There is no evidence of biliary ductal dilatio n. No calcified stones. Pancreas: The pancreas is normal. No ductal dilation. Spleen: The spleen is normal. Adrenals: The adrenal glands are normal. Kidneys and ureters: Normal. No solid mass. No hydronephrosis. Stomach and bowel: The stomach is normal. The duodenum is unremarkable. Mild diverticulosis is presen t in the sigmoid and descending colon. No obstruction. No mucosal thickening. Appendix: A normal appendix is identified. PELVIS: Bladder: The bladder is decompressed by a Mosqueda catheter but is otherwise normal. There is a small am ount of intraluminal air consistent with instrumentation. Reproductive: Unremarkable as visualized. ABDOMEN and PELVIS: Intraperitoneal space: Normal. No free air. No significant fluid collection. Bones/joints: There are moderate lumbar spine degenerative changes. Bone osteopenia is present which limits evaluation for acute nondisplaced fracture. No dislocation. Soft tissues: Normal. Vasculature: Normal. No abdominal aortic aneurysm. Lymph nodes: Normal. No enlarged lymph nodes. IMPRESSION: No acute abdominal pelvic pathology. Thank you for allowing us to participate in the care of your patient. Dictated and Authenticated by: Jaylon Guevara MD 01/29/2017 5:58 AM Central Time ([place] & [place]) FINAL REPORT CT ABDOMEN AND PELVIS WITH CONTRAST CT LUMBAR SPINE WITH CONTRAST REFORMATTED IMAGING: Date: 01/29/17 FINDINGS/IMPRESSION: I agree with the preliminary report given by vR. There is no acute post-traumatic sequelae identified. Additional details are as discussed above.
[2017-01-29] MEDS ORDERED: PROVENTIL INHALER 6.7 G (200 INHALATIONS) INH PRN (15:23)
[2017-01-29] MEDS ORDERED: Fluticasone Propionate Nasal Spray 16 gm Bottle FS PRN (15:23)
--- NOTE | 2017-01-29 15:24 | CT ---
PRELIMINARY REPORT/[facility]/EMERGENCY AFTER HOURS PROCEDURE: EXAM: CT Cervical Spine Without Intravenous Contrast EXAM DATE/TIME: Exam ordered 01/29/2017 5:27 AM CLINICAL HISTORY: 86 years old, female; Injury or trauma; Fall; Initial encounter; Blunt trauma (contusions or hematoma s); Consciousness not specified; Patient HX: S/P fall TECHNIQUE: Axial computed tomography images of the cervical spine without intravenous contrast. COMPARISON: No relevant prior studies available. FINDINGS: Vertebrae: There is anterolisthesis of C3 on C4 and anterolisthesis of C4 and C5 probably representin g degenerative change. No acute fractures identified. There is degenerative change involving the atla ntoaxial joint. Discs/spinal canal/neural foramina: See above. Soft tissues: Normal. Lung apices: Unremarkable as visualized. IMPRESSION: There is anterolisthesis of C3 on C4 and anterolisthesis of C4 and C5 probably representing degenerat sarah change. No acute fractures identified. Thank you for allowing us to participate in the care of your patient. Dictated and Authenticated by: Jaylon Guevara MD 01/29/2017 5:54 AM Central Time ([place] & [place]) FINAL REPORT CT CERVICAL SPINE NONCONTRAST: Date: 01/29/17 FINDINGS/IMPRESSION: I agree with the preliminary report given by Terry. No acute cervical spine fracture. 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
[2017-01-29] MEDS ORDERED: Promethazine HCl 25 MG/ML VIAL IM PRN (15:25)
[2017-01-29] MEDS ORDERED: Promethazine HCl 25 MG/ML VIAL SLOW IVP PRN (15:25)
--- NOTE | 2017-01-29 16:56 | CON ---
DATE OF CONSULTATION: 01/29/2017 HISTORY OF PRESENT ILLNESS: Ms. Ryan is an 86-year-old white female who fell at home on 7. She was seen in the emergency room. No fractures were noted. The patient was sent back home. S he continued to have some pain in the left hip and came back to the emergency room this morning where x-rays now show an impacted femoral neck fracture. The patient has no neurologic complaints in the left lower extremity. PAST MEDICAL HISTORY: Medical Illness: Asthma, hypertension, and atrial fibrillation. Current MEDICATIONS: Diltiazem, fluticasone, ProAir, raloxifene, and Xarelto. PAST SURGICAL HISTORY: Hysterectomy. ALLERGIES: None. SOCIAL HISTORY: The patient lives at home, is independent. She does not use tobacco, alcohol or irasema gs. PHYSICAL EXAMINATION: GENERAL: The patient is a pleasant female. VITAL SIGNS: Patient is afebrile, blood pressure 137/71, heart rate 75, respiratory rate 18. EXTREMITIES: Examination of the left hip, the patient is tender to palpation over the greater trocha nter because she has a subcapital femoral neck fracture. No attempts were made at movement of the le ft hip. The left lower extremity is neurovascularly intact. X-RAYS: I reviewed the x-rays on the left hip. Patient does have an impacted femoral neck fracture of the left hip. There are no degenerative changes in the hip joint. ADMISSION LABORATORY DATA: Hemoglobin 13.8, hematocrit 42. PT is 15, INR of 1.1, PTT 33. Remaining values are normal. IMPRESSION: 1. Impacted femoral neck fracture of left hip. 2. History of atrial fibrillation, on Xarelto. 3. Hypertension, well controlled. 4. History of asthma. PLAN: The patient will require multiple pinning using cannulated screws of the left hip. We can per form this under TIVA with local anesthesia. Potential risks with the condition of surgery include bu t are not limited to infection, bleeding, pain, damage to blood vessels or nerves, nonunion, malunion . The patient may require additional surgery. The patient's questions were answered and agreed to t he procedure.
--- NOTE | 2017-01-29 16:59 | RAD ---
LEFT HIP 2 VIEWS: Date: 01/29/17 HISTORY: Subcapital fracture. FINDINGS: Two intraoperative images of the left hip were provided. Two cannulated lag screws traverse the left femoral neck, treating the previously noted fracture. IMPRESSION: Open reduction and internal fixation as above. POS: GELACIO
[2017-01-29] MEDS: traMADol HCl 50 MG TAB PO PRN (17:18)
[2017-01-29] MEDS: hydrALAZINE 20 MG/ML VIAL SLOW IVP PRN (17:28)
--- NOTE | 2017-01-29 17:34 | OP ---
DATE OF OPERATION: 01/29/2017 PREOPERATIVE DIAGNOSIS: Impacted femoral neck fracture of the left hip. POSTOPERATIVE DIAGNOSIS: Impacted femoral neck fracture of the left hip. PROCEDURE: Multiple pinning with cannulated screws of the impacted femoral neck fracture of the left hip. SURGEON: Carmelo Bowden M.D. ANESTHESIA: TIVA with local using 0.25% Marcaine with epinephrine. TECHNIQUE: The patient was given preoperative IV antibiotics, taken to the operating room, placed in the supine position. The patient was given good IV sedation. She was placed on the fracture table and all bony prominences were well-padded and traction was not applied to the left lower extremity. The lateral aspect of the left hip and thigh were sterilely prepped and draped. C-arm was used to ev aluate the proximal aspect of the proximal femur. A 10 mL of 0.25% Marcaine with epinephrine was use d on the lateral aspect of the upper thigh. A 2 cm incision was made over this area and through fluo roscopic visualization using the C-arm. Two guidewires were placed up through the lateral aspect of the proximal femur into the femoral neck and head. Once the length was measured, a 6.5 and 7.3 long threaded cannulated screws were inserted into the femoral neck and head, crossing the fracture provid ed an excellent fixation for the subtrochanteric fracture. The wound was then irrigated with antibio tic solution and was closed using 3-0 Rapide. A sterile dressing was applied. The patient was taken off the fracture table and transferred to the recovery room in stable condition. ESTIMATED BLOOD LOSS: Less than 5 mL. COMPLICATIONS: None.
[2017-01-29] MEDS ORDERED: Rivaroxaban 15 MG TAB PO SCH (21:00)
--- NOTE | 2017-01-29 21:08 | OP ---
DATE OF PROCEDURE: 01/29/2017 PREOPERATIVE DIAGNOSIS: Comminuted intertrochanteric fracture of the right proximal femur. POSTOPERATIVE DIAGNOSIS: Comminuted intertrochanteric fracture of the right proximal femur. PROCEDURE: Open reduction internal fixation of comminuted intertrochanteric fracture of the right hi p utilizing a short trochanteric fixation nail. SURGEON: Carmelo Bowden M.D. ANESTHESIA: General. TECHNIQUE: The patient was given preoperative IV antibiotics, taken to the operating room, and place d in the supine position. Satisfactory general anesthesia was performed. The patient was then place d on the fracture table and all bony prominences were well padded. She was placed in traction over a well-padded right foot and ankle. C-arm verified good alignment of the intertrochanteric fracture i n both AP, lateral and multiple oblique views. Lateral aspect of the right hip and thigh was sterile ly prepped and draped. A 2-inch incision was made proximal to the greater trochanter and under fluor oscopic visualization, a guidepin was placed through the greater trochanter into the proximal aspect of the femur. It was overreamed and a trochanteric fixation nail that measured 11 mm in diameter and 170 mm in length was inserted into the proximal femur to the appropriate depth through a separate in cision in the lateral aspect of the thigh that was also approximately 2 inches in length. A guidepin was placed up through the lateral aspect of the proximal femur through the trochanteric fixation robbie l and into the femoral neck and head. It was then measured, overreamed, and a 105 mm helical blade w as inserted into the trochanteric fixation nail and also into the femoral neck and head and then lock ing device was used to lock the helical blade to the ron. A 5.0 locking screw was placed distally. The wounds were then copiously irrigated with antibiotic solution, closed using #1 Vicryl for the bibi otibial band and the fatty layer and the skin were closed with 3-0 Rapide. A sterile dressing was ap plied. The patient was taken out of traction. She was awakened, extubated, and transferred to the r ecovery room in stable condition. ESTIMATED BLOOD LOSS: 50 mL COMPLICATIONS: None.
[2017-01-29] MEDS: Rivaroxaban 15 MG TAB PO SCH (22:12)
[2017-01-29] MEDS: Montelukast Sodium 10 mg Tablet PO SCH (22:12)
[2017-01-29] MEDS: Famotidine 20 MG TAB PO SCH (22:13)
[2017-01-30] MEDS: Sodium Chloride 0.9% 1,000 ML IV SCH (02:02)
[2017-01-30] MEDS: Acetaminophen 325 MG TAB PO SCH ×6 (02:02→21:15)
[2017-01-30 05:50] LABS: #Basophils 0.1 thou/uL (0.0-0.2); #Eosinphils 0.1 thou/uL (0.0-0.7); #Lymphocytes 1.5 thou/uL (1.20-3.40); #Monocytes 0.5 thou/uL (0.11-0.59); #Neutrophils 3.1 thou/uL (1.40-6.50); %Basophils 1.4 % (0.0-1.0); %Eosinophils 2.7 % (0.0-10.0); Hematocrit 36.8 % (36.0-47.0); Mean Platelet Volume 7.9 fL (7.4-10.4); Red Blood Cell (RBC) Count 3.59 mill/uL (4.20-5.40); White Blood Cell (WBC) Count 5.3 thou/uL (4.8-10.8)
[2017-01-30 06:07] LABS: Anion Gap 7 mmol/L (10-20); BUN (Urea Nitrogen) 10 mg/dL (9.8-20.1); Calc. Creatinine Clearance 0 mL/min (70-130); Calcium 9.5 mg/dL (7.8-10.44); Carbon Dioxide 31 mmol/L (23-31); Chloride 104 mmol/L (98-107); Estimated GFR-MDRD 85; Phosphorus 3.2 mg/dL (2.3-4.7)
[2017-01-30] MEDS: Ibuprofen 600 MG TAB PO SCH ×3 (06:31→21:13)
[2017-01-30] MEDS: hydrALAZINE 20 MG/ML VIAL SLOW IVP PRN (06:38)
[2017-01-30 06:48] VITALS: BMI 21.2
[2017-01-30] MEDS ORDERED: Non-Formulary Item 1 EACH (Rivaroxaban [Xarelto] 20 MG) PO SCH (09:00)
[2017-01-30] MEDS: Famotidine 20 MG TAB PO SCH ×2 (10:11→21:13)
[2017-01-30] MEDS: Rivaroxaban 15 MG TAB PO SCH ×2 (10:11→21:12)
--- NOTE | 2017-01-30 10:52 | PRG-2 ---
DATE OF SERVICE: 01/30/2017 ATTENDING TRAUMA SURGEON: Dr. Reji Kay SUBJECTIVE: Carmita Ryan is an 86-year-old woman who is status post ground level fall and a left subcapital hip fracture, hospital day #1. She went to surgery yesterday with Dr. Bowden for open re duction internal fixation of comminuted intertrochanteric fracture of the right hip utilizing a short trochanteric fixation nail. The patient tolerated the procedure well and she did well overnight. S he states that her pain is well controlled. She has no complaints. OBJECTIVE: VITAL SIGNS: Temperature 98, pulse 128, respiratory 14, O2 sat 92%, blood pressure 151/72. GENERAL: An elderly, frail-appearing woman in no acute distress. HEENT: Unremarkable. CARDIOVASCULAR: Irregularly irregular rhythm. No murmurs. CHEST: Lungs clear to auscultation bilaterally. ABDOMEN: Soft, nontender, nondistended. EXTREMITIES: Some pain with movement of the left hip. All 4 extremities are neurovascularly intact. LABORATORY DATA: White blood cell count 5.3, hemoglobin 12.2, hematocrit 36.8, platelet count 240. Sodium 138, potassium 4.1, chloride 104, carbon dioxide 31, BUN 10, creatinine 0.66, glucose 68, calc ium 9.5, phosphorus 3.2, magnesium 2.1. ASSESSMENT: 1. Status post ground level fall. 2. Left subcapital hip fracture. 3. Acute traumatic pain. 4. History of atrial fibrillation on Xarelto. The patient is postoperative day #1. PLAN: We will continue pain management. We will continue to have the patient working with PT and OT . We will stop IV fluids today as the patient is tolerating a regular diet. No other changes in man agement at this time. Assessment and plan discussed with attending trauma surgeon, Dr. Reji Kay, on rounds this gus ramos
[2017-01-30] MEDS: Montelukast Sodium 10 mg Tablet PO SCH (21:12)
[2017-01-30] MEDS: traMADol HCl 50 MG TAB PO PRN (22:23)
[2017-01-31] MEDS: Acetaminophen 325 MG TAB PO SCH ×6 (03:28→22:18)
[2017-01-31] MEDS: Ibuprofen 600 MG TAB PO SCH ×3 (06:15→22:19)
[2017-01-31] MEDS: Senokot S 8.6-50 MG TAB PO SCH ×2 (08:59→22:19)
[2017-01-31] MEDS: Rivaroxaban 15 MG TAB PO SCH ×2 (08:59→22:19)
[2017-01-31] MEDS: Famotidine 20 MG TAB PO SCH ×2 (08:59→22:18)
[2017-01-31] MEDS ORDERED: Polyethylene Glycol 3350 17 GM Packet PO SCH (09:00)
[2017-01-31] MEDS ORDERED: Bisacodyl 10 MG SUPP PR ONE (15:34)
[2017-01-31 21:05] VITALS: BP 162/79; TEMP 98
[2017-01-31] MEDS: Montelukast Sodium 10 mg Tablet PO SCH (22:18)
--- NOTE | 2017-02-01 01:40 | DIS ---
DATE OF ADMISSION: 01/29/2017 DATE OF DISCHARGE: 01/31/2017 REASON FOR HOSPITALIZATION: Ground level fall. HOSPITAL DIAGNOSIS: Left impacted femoral neck fracture. ADMITTING PHYSICIAN: Dr. Eleni Snow DATE OF PROCEDURE: 01/29/2017 PROCEDURE PERFORMED: Multiple pinning with cannulated screws of the impacted femoral neck fracture of the left hip. SURGEON: Dr. Carmelo Bowden. DISCHARGE CONDITION: Stable to rehabilitation. BRIEF SUMMARY OF HOSPITALIZATION: The patient is an 86-year-old female, who fell at home on 01/23/2017. She was seen in the emergency room. No fractures were noted at that time. The patient was discharged back home. She continued to have some pain in the left hip and return to the emergency room on the morning of 01/29/2017 where x-rays now showed an impacted femoral neck fracture. She was admitted to the hospital about trauma services. Dr. Bowden , Orthopedics, was consulted. The patient was taken to the operating room for fixation of the hip fracture. She had no postoperative complications. On 01/31, she was accepted to rehabilitation. She was discharged to rehabilitation in stable condition. She is to follow up with Dr. Bowden in 2 weeks. At that time of discharge, she was tolerating a regular diet, pain was well controlled with oral analgesia, and bowel function had returned to normal. The patient was seen and examined with Dr. Kay who agrees with review of systems, physical examination, assessment and plan for discharge. [facility]ITAL[facility]
== END 2017-01-31 21:10 | DRG 482 ==
LOC: ERS 04:19 → SURG B 11:19
PROVIDERS: ADMIT Surgery; ATTEND Surgery
PROC: 0QS734Z Reposition Left Upper Femur with Internal Fixation Device, Percutaneous Approach (ICD-10-PCS; principal; 2017-01-29)
DX: S72.012A Unspecified intracapsular fracture of left femur, initial encounter for closed fracture (principal); I48.91 Unspecified atrial fibrillation; I10 Essential (primary) hypertension; W18.30XA Fall on same level, unspecified, initial encounter; Z79.02 Long term (current) use of antithrombotics/antiplatelets; Z86.711 Personal history of pulmonary embolism; I25.10 Atherosclerotic heart disease of native coronary artery without angina pectoris; Z95.5 Presence of coronary angioplasty implant and graft; J45.909 Unspecified asthma, uncomplicated; R29.6 Repeated falls; Z87.891 Personal history of nicotine dependence
CPT/HCPCS: 36415; 51702; 70450; 71010; 72125; 72170; 74177; 76001; 80048; 81003; 82553; 83735; 84100; 84484; 85025; 85610; 85730; 86850; 86900; 86901; 87086; 93005; 94760; 96374; C1713; C1769; G8978-GP-CL; G8979-GP-CJ; G8987-GO-CK; G8988-GO-CI; J0360; J2270; J2704; J2800; J7050

== ENCOUNTER 2017-09-16 10:28 | Inpatient (IN) | payer MEDICARE, BC ==
[2017-09-16] MEDS ORDERED: Ondansetron ODT 4 MG TAB ONE (10:42)
[2017-09-16] MEDS ORDERED: Metoclopramide HCl 10 MG/2 ML VIAL ONE (11:24)
[2017-09-16 11:43] LABS: ALT (SGPT) 12 U/L (8-55); AST (SGOT) 25 U/L (5-34); Albumin 4.4 g/dL (3.4-4.8); Alkaline Phosphatase 70 U/L (40-150); Anion Gap 16 mmol/L (10-20); BUN (Urea Nitrogen) 9 mg/dL (9.8-20.1); CK (CPK) 382 U/L (29-168); Calc. Creatinine Clearance 0 mL/min (70-130); Calcium 10.9 mg/dL (7.8-10.44); Carbon Dioxide 22 mmol/L (23-31); Chloride 102 mmol/L (98-107); Estimated GFR-MDRD 79; Globulin 3.4 g/dL (2.4-3.5); Glucose 148 mg/dL (83-110); Lipase 25 U/L (8-78); Potassium 3.6 mmol/L (3.5-5.1); Protein, Total 7.8 g/dL (6.0-8.3); Sodium 136 mmol/L (136-145)
[2017-09-16 11:46] LABS: Troponin I 0.014 ng/mL (< 0.028)
[2017-09-16 11:52] LABS: Bilirubin Negative (Negative); Blood, Urine Moderate (Negative); Clarity CLOUDY (Clear); Glucose, Urine (Dipstick) Negative (Negative); Leukocyte Large (Negative); Nitrite Negative (Negative); Protein, Urine (Dipstick) 100 mg/dL (Neg-Trace); Specific Gravity, Urine 1.016 (1.002-1.036)
[2017-09-16 11:53] LABS: Bacteria/HPF 4+ HPF (None Seen); Hyaline Casts/LPF 0-3 HYALINE CAST LPF (0-3 Hyaline); Pathc Cast-AUWi Flag 0.58 (0-2.49); Squamous Epithelial None Seen HPF (0-3)
[2017-09-16 11:54] LABS: #Lymphocytes 0.7 thou/uL (1.20-3.40); #Monocytes 0.8 thou/uL (0.11-0.59); #Neutrophils 8.9 thou/uL (1.40-6.50); %Basophils 0.2 % (0.0-1.0); %Eosinophils 0.1 % (0.0-10.0); %Lymphocytes 6.6 % (21.0-51.0); %Monocytes 7.8 % (0.0-10.0); %Neutrophils 85.3 % (42.0-75.0); Hemoglobin 14.6 g/dL (12.0-16.0); Lymphocytes 4 % (21-51); MDiff Complete? YES; Mean Corpuscular HGB CONC 34.7 g/dL (32.0-36.0); Mean Corpuscular Hemoglobin 32.1 pg (27.0-31.0); Mean Corpuscular Volume 92.4 fL (78.0-98.0); Mean Platelet Volume 8.8 fL (7.4-10.4); Monocytes 8 % (0-10); Neutrophil 88 % (42-75); PLT Morphology Comment PLT clumps seen-ADEQ; Platelet Count 188 thou/uL (130-400); RBC Distribution Width 11.8 % (11.5-14.5); RBC Morphology Normal; Red Blood Cell (RBC) Count 4.56 mill/uL (4.20-5.40); White Blood Cell (WBC) Count 10.5 thou/uL (4.8-10.8)
[2017-09-16 11:57] LABS: CKMB 9.9 ng/mL (0-6.6)
[2017-09-16] MEDS ORDERED: cefTRIAXone\\ROCEPHIN 1 GM VIAL ONE (13:03)
--- NOTE | 2017-09-16 14:07 | RAD ---
PORTABLE AP CHEST X-RAY: 09/16/2017 HISTORY: Dyspnea with nausea, vomiting, and diarrhea. COMPARISON: 01/29/2017 FINDINGS: The cardiac silhouette and pulmonary vasculature are within normal limits. Mild chronic lung changes are present. The lungs are otherwise clear. Linear density overlying the lateral left lung base is most likely related to overlying artifact. There is osteopenia. Vascular calcifications are seen i n the thoracic aorta. IMPRESSION: Stable chest without evidence of an acute cardiopulmonary process. POS: ALISONH
[2017-09-16] MEDS ORDERED: Metoclopramide 10 MG/10 ML UDCUP PO PRN (14:36)
[2017-09-16] MEDS ORDERED: Acetaminophen 325 MG TAB PO PRN (14:40)
[2017-09-16] MEDS ORDERED: Metoclopramide HCl 10 MG/2 ML VIAL IVP PRN (14:42)
[2017-09-16] MEDS: Albuterol Sulfate 1.25 MG/3 ML NEB NEB SCH ×4 (16:12→22:32)
[2017-09-16] MEDS: Sodium Chloride 0.9% 1,000 ML IV SCH ×2 (16:28→22:49)
[2017-09-16] MEDS: NS 0.9% w/ 20 MEQ KCL 1,000 ML/1,000 ML BAG IV SCH (16:33)
[2017-09-16] MEDS ORDERED: Bismuth Subs 17.5mg/mL Susp 120 ML BOT PO PRN (19:11)
--- NOTE | 2017-09-16 19:12 | CT ---
CT OF BRAIN PERFORMED WITHOUT CONTRAST ENHANCEMENT: 09/16/17 HISTORY: Fall with head injury, dizziness and confusion. COMPARISON: 01/29/17 study. There is some generalized ventricular and sulcal prominence. Decreased attenuation of the periventric ular white matter consistent with some chronic white matter change. There is no signs of intracerebra l hemorrhage or extra-axial fluid collections. Mastoid air cells and visualized sinuses are clear. IMPRESSION: No acute intracranial abnormalities. POS: [facility]
--- NOTE | 2017-09-16 22:53 | HP ---
DATE OF SERVICE: 09/16/2017 PRIMARY CARE PHYSICIAN: Dr. Beckwith. CHIEF COMPLAINT: "I have been sick." HISTORY OF PRESENT ILLNESS: This is an 87-year-old female with known history of atrial fibrillation on full anticoagulation, dementia, diagnosis of PE back in 01/2017, hypertension, and history of hair line hip fracture, who presents to the emergency room after being found on the ground by her son. The majority of the history is obtained from the patient's son by phone. He reports that over the past 6 months that off and on she has been nauseous and vomiting and that she falls. This morning when he went to see her, she was on the ground, "just lying there" and states she told him that she just was not feeling well. He saw her last night, said that she had been nauseous, but not vomiting at that time. Because he was not able to get her up, an ambulance was called. Her son reports that over the past 6 months she's had intermittent nausea, vomiting and diarrhea. She has undergone endoscopy with Dr. Enrique of GI, and testing with her primary care provider without etiology. for the dementia, he states that she lives independently, able to take care of her ADLs and noticed that she was acting a little different today. He is unaware of how much time that she was on the floor this morning. In the emergency room, the patient found to have a urinary tract infection given ceftriaxone 1 gram IV, Reglan 5 mg IV and Hospitalist called for admission. The ER physician reports some history of dark stools, and states her stool was hemoccult negative and there was no stool in the rectal vault. ALLERGIES TO MEDICATIONS: None. MEDICATIONS: Reconciled with the list the son said she provided to the emergency room. 1. Diltiazem extended release 240 mg once a day. 2. Xarelto 20 mg daily. 3. Ziprasidone 20 mg once a day 4. nausea medicine he does not know the name. PAST MEDICAL HISTORY: 1. Dementia. 2. Pulmonary embolus, diagnosed in 01/2017. 3. Hypertension. 4. Asthma. 5. Hairline hip fracture from 01/2017. PAST SURGICAL HISTORY: Obtained from her records, which shows hysterectomy. SOCIAL HISTORY: The patient lives alone with son nearby. The surrogate decision makers are her son or daughter. No tobacco or alcohol. FAMILY HISTORY: Negative for cancer in the family, positive for heart disease. REVIEW OF SYSTEMS: Not obtainable from the patient other than she can tell me that she falls occasionally and her stomach has been upset. The review of systems now is negative, but I am uncertain of how reliable it is. All remaining review of systems are negative. PHYSICAL EXAMINATION: VITAL SIGNS: Blood pressure 132/66, pulse 87, respirations 18, temperature 97.5 , 100% on room air. GENERAL: She is awake, alert, responsive, in no apparent distress. HEENT: Her pupils are equal and round, and extraocular movements are intact. Her head, she has an area of erythema in the occipital area. No palpable crepitus. No induration and no tenderness to palpation. NECK: Supple, nontender. LYMPHATICS: No palpable cervical or supraclavicular lymphadenopathy. LUNGS: Clear to auscultation bilateral. No audible wheezing, rhonchi or rales. HEART: Normal S1, S2. Irregularly irregular. No audible murmurs. ABDOMEN: Soft. Present bowel sounds. Nontender, nondistended. EXTREMITIES: No clubbing, cyanosis, or edema. SKIN: Nonblanchable area on her right heel, no visible rashes. LABORATORY DATA AND IMAGIN. EKG is personally reviewed, atrial fibrillation with a rate of 82, normal axis, prolonged QT interval with a QTc of 502, abnormal R-wave progression, no ST changes. 2. Her chest x-ray by my read, has no acute process. 3. CBC: 10.5, 14.6, 42.1, 188, with 85% neutrophils. 4. Renal panel: 136, 3.6, 102, 22, 9, 0.7, 148 with a calcium of 10.9. 5. CK is 382, MB 9.9. Troponin negative. 6. LFTs are normal. 7. Urinalysis shows present protein, ketones, large leukocyte esterase, greater than 50 white blood cells and 4+ bacteria. IMPRESSION: 1. Urinary tract infection. 2. Nausea, vomiting, diarrhea that is chronic intermittent in nature. 3. Encephalopathy with baseline dementia, likely secondary to #1. 4. Prolonged QT interval. 5. History of pulmonary embolus on full anticoagulation. 6. Atrial fibrillation, rate controlled, on full anticoagulation. 7. History of a hairline hip fracture. 8. Asthma, no exacerbation. PLAN: 1. Admission to the hospital. 2. Continuing IV antibiotics, IV fluid hydration, monitoring mental status as well as urine and blood cultures. 3. Continuing her home medications for rate control and full anticoagulation. Will also order prn albuterol. 4. Because of the nausea and vomiting, as well as the prolonged QT interval, will hold the ziprasidone. 5. Will order a CT brain non-contrast due to being found down and erythematous area on her occiput. 6. Of note, the patient has been falling at home and is on full anticoagulation. This will need to be addressed either as an inpatient or with Dr. Beckwith as an outpatient regarding the safety of full anticoagulation for her. 7. Avoiding medications that can prolong the QT interval. 8. PT and OT to evaluate her strength and balance. 9. Her son is working on obtaining additional assistance at home, may benefit from talking with manager of case management. 10. Stool studies. We will check C. diff, stool culture, and Giardia. If the nausea and vomiting are persistent, may need to obtain records from Dr. Enrique of GI and/or consult GI here. We will use Reglan for now as needed and given the prolonged QT interval. 9. Deep venous thrombosis prophylaxis. She is on full anticoagulation with Xarelto. 10. Gastrointestinal prophylaxis not indicated. 11. Falls precautions. 12. Code status is FULL. Surrogate decision maker is her son or her daughter. 13. The patient is at high risk given age, comorbidities, and current presentation. 14. I reviewed the plan of care with the patient as well as her son by phone. No questions or further needs at end of evaluation. WALLY
[2017-09-17] MEDS: Albuterol Sulfate 1.25 MG/3 ML NEB NEB SCH ×3 (02:42→09:29)
[2017-09-17 05:22] LABS: Anion Gap 15 mmol/L (10-20); BUN (Urea Nitrogen) 11 mg/dL (9.8-20.1); Calc. Creatinine Clearance 0 mL/min (70-130); Calcium 10.4 mg/dL (7.8-10.44); Carbon Dioxide 21 mmol/L (23-31); Chloride 108 mmol/L (98-107); Estimated GFR-MDRD 72; Glucose 97 mg/dL (83-110); Potassium 3.9 mmol/L (3.5-5.1); Sodium 140 mmol/L (136-145)
[2017-09-17 06:01] LABS: Band 17 % (5-11); Elliptocytes SLIGHT = 2-5 cells (100X) (0-1/hpf); Lymphocytes 9 % (21-51); MDiff Complete? YES; Mean Corpuscular HGB CONC 33.8 g/dL (32.0-36.0); Mean Corpuscular Hemoglobin 31.2 pg (27.0-31.0); Mean Corpuscular Volume 92.5 fL (78.0-98.0); Mean Platelet Volume 8.4 fL (7.4-10.4); Metamyelocyte 1 % (0-0); Monocytes 4 % (0-10); Neutrophil 69 % (42-75); PLT Morphology Comment Appears Adequate; Platelet Count 189 thou/uL (130-400); RBC Distribution Width 11.9 % (11.5-14.5); Red Blood Cell (RBC) Count 4.17 mill/uL (4.20-5.40); White Blood Cell (WBC) Count 15.6 thou/uL (4.8-10.8)
[2017-09-17 06:51] VITALS: BMI 19.3
[2017-09-17] MEDS: Rivaroxaban 10 MG TAB PO SCH (06:55)
[2017-09-17] MEDS: NS 0.9% w/ 20 MEQ KCL 1,000 ML/1,000 ML BAG IV SCH ×2 (06:55→18:54)
[2017-09-17] MEDS ORDERED: Ziprasidone 20 MG CAP PO SCH (08:00)
[2017-09-17] MEDS ORDERED: Albuterol Sulfate 1.25 MG/3 ML NEB NEB PRN (09:40)
--- NOTE | 2017-09-17 11:00 | PDOC.PN ---
- Subjective Encounter Start Date: 09/17/17 Encounter Start Time: 10:40 -: old records requested/rev Pt seen and examined, chart reviewed in its entirety, this is my first visit with this patient pt sleeping, difficult to arouse, confused and falls back to sleep. No F/c, no acute events, no n/V/D/C ROS not obtainable - Objective Resuscitation Status: Resuscitation Status FULL:Full Resuscitation MAR Reviewed: Yes Vital Signs & Weight: Vital Signs (12 hours) Temp Pulse Resp BP BP BP Pulse Ox 09/17/17 09:18 108 H 151/66 H 09/17/17 09:14 111 H 151/66 H 09/17/17 07:15 98.3 F 111 H 18 186/76 H 96 09/17/17 05:47 100 16 93 L 09/17/17 04:00 98.3 F 90 16 145/70 H 96 09/17/17 02:42 112 H 16 94 L 09/17/17 00:00 97.9 F 112 H 16 166/76 H 92 L Weight Weight 102 lb 8 oz Result Diagrams: 09/17/17 04:39 09/17/17 04:39 Radiology Reviewed by me: Yes EKG Reviewed by me: Yes Phys Exam - Physical Examination Constitutional: NAD HEENT: PERRLA, moist MMs, sclera anicteric, oral pharynx no lesions Neck: no nodes, no JVD, supple, full ROM Respiratory: no wheezing, no rales, no rhonchi, clear to auscultation bilateral Cardiovascular: RRR, no significant murmur, no rub Gastrointestinal: soft, non-tender, no distention, positive bowel sounds Neurological: non-focal, moves all 4 limbs Lymphatic: no nodes Deviation from normal: sleepy, confused Skin: no rash, normal turgor, cap refill <2 seconds Dx/Plan (1) UTI (urinary tract infection) Status: Acute (2) Metabolic encephalopathy Code(s): G93.41 - METABOLIC ENCEPHALOPATHY Status: Acute (3) Chronic a-fib Code(s): I48.2 - CHRONIC ATRIAL FIBRILLATION Status: Chronic - Plan cont current plan of care, continue antibiotics * .
[2017-09-17] MEDS: cefTRIAXone\\ROCEPHIN 1 GM in Sodium Chloride 0.9% 100 ML IVPB SCH (13:48)
[2017-09-18 05:25] LABS: #Eosinphils 0.1 thou/uL (0.0-0.7); #Lymphocytes 1.9 thou/uL (1.20-3.40); #Monocytes 0.9 thou/uL (0.11-0.59); #Neutrophils 7.7 thou/uL (1.40-6.50); %Basophils 0.3 % (0.0-1.0); %Eosinophils 0.9 % (0.0-10.0); %Lymphocytes 17.8 % (21.0-51.0); %Monocytes 8.5 % (0.0-10.0); %Neutrophils 72.4 % (42.0-75.0); Hemoglobin 12.6 g/dL (12.0-16.0); Mean Corpuscular HGB CONC 34.3 g/dL (32.0-36.0); Mean Corpuscular Volume 93.2 fL (78.0-98.0); Mean Platelet Volume 8.9 fL (7.4-10.4); Platelet Count 169 thou/uL (130-400); RBC Distribution Width 11.8 % (11.5-14.5); Red Blood Cell (RBC) Count 3.93 mill/uL (4.20-5.40); White Blood Cell (WBC) Count 10.6 thou/uL (4.8-10.8)
[2017-09-18 05:37] LABS: Anion Gap 10 mmol/L (10-20); BUN (Urea Nitrogen) 10 mg/dL (9.8-20.1); Calc. Creatinine Clearance 46 mL/min (70-130); Calcium 9.8 mg/dL (7.8-10.44); Carbon Dioxide 22 mmol/L (23-31); Chloride 108 mmol/L (98-107); Estimated GFR-MDRD 88; Glucose 107 mg/dL (83-110); Magnesium 1.8 mg/dL (1.6-2.6); Potassium 3.8 mmol/L (3.5-5.1); Sodium 136 mmol/L (136-145)
[2017-09-18] MEDS: Rivaroxaban 10 MG TAB PO SCH (06:02)
[2017-09-18] MEDS: NS 0.9% w/ 20 MEQ KCL 1,000 ML/1,000 ML BAG IV SCH (09:45)
[2017-09-18] MEDS ORDERED: traMADol HCl 50 MG TAB PO PRN (12:04)
[2017-09-18] MEDS ORDERED: Saccharomyces boulardii 250 MG CAP PO SCH (12:15)
[2017-09-18] MEDS: cefTRIAXone\\ROCEPHIN 1 GM in Sodium Chloride 0.9% 100 ML IVPB SCH (13:03)
--- NOTE | 2017-09-18 15:24 | PDOC.PN ---
- Subjective Encounter Start Date: 09/18/17 Encounter Start Time: 15:22 Subjective: c/o Left shoulder pain and nausea -: feels weak.no vomiting/diarrhea - Objective Resuscitation Status: Resuscitation Status FULL:Full Resuscitation MAR Reviewed: Yes Vital Signs & Weight: Vital Signs (12 hours) Temp Pulse Pulse Pulse Resp BP BP 09/18/17 12:10 97.4 F L 104 H 20 09/18/17 09:41 111 H 171/89 H 09/18/17 09:36 84 121 H 159/89 H 09/18/17 08:30 98.0 F 111 H 20 09/18/17 07:54 98 F 111 H 20 09/18/17 04:00 98.1 F 101 H 16 BP BP Pulse Ox 09/18/17 12:10 171/93 H 95 09/18/17 09:41 09/18/17 09:36 171/89 H 09/18/17 08:30 93 L 09/18/17 07:54 174/97 H 93 L 09/18/17 04:00 169/77 H 92 L Weight Weight 102 lb 8 oz I&O: 09/17/17 09/18/17 09/19/17 06:59 06:59 06:59 Intake Total 2100 Balance 2100 Result Diagrams: 09/18/17 04:38 09/18/17 04:38 Additional Labs: Microbiology 09/16/17 11:40 Urine clean catch Urine Culture - Final Enterobacter cloacae complex 09/16/17 10:55 Stool - Pending Stool Occult Blood (ROLF) - Final 09/16/17 13:24 Venous blood - Left Hand Blood Culture - Preliminary Specimen has been received and culture in progress. No Growth to date. 09/16/17 13:24 Venous blood - Left Hand Blood Culture - Preliminary NO GROWTH AT 48 HOURS 09/16/17 13:18 Venous blood - Right Hand Blood Culture - Preliminary Specimen has been received and culture in progress. No Growth to date. 09/16/17 13:18 Venous blood - Right Hand Blood Culture - Preliminary NO GROWTH AT 48 HOURS 09/16/17 11:40 Urine clean catch Urine Culture - Preliminary Enterobacter cloacae complex labs reviewed Phys Exam - Physical Examination Constitutional: NAD HEENT: PERRLA, moist MMs, sclera anicteric, TM's clear, oral pharynx no lesions Neck: no nodes, no JVD, supple, full ROM Respiratory: no wheezing, no rales, no rhonchi, clear to auscultation bilateral Cardiovascular: RRR, no significant murmur, no rub Gastrointestinal: soft, non-tender, no distention, positive bowel sounds Musculoskeletal: no edema, pulses present Neurological: non-focal, normal sensation, moves all 4 limbs Psychiatric: normal affect, A&O x 3 Skin: no rash Dx/Plan (1) UTI (urinary tract infection) Status: Acute (2) Metabolic encephalopathy Code(s): G93.41 - METABOLIC ENCEPHALOPATHY Status: Acute Comment: improving (3) Accident due to mechanical fall without injury Code(s): W19.XXXA - UNSPECIFIED FALL, INITIAL ENCOUNTER Status: Acute Qualifiers: Encounter type: initial encounter Qualified Code(s): W19.XXXA - Unspecified fall, initial encounter (4) Chronic a-fib Code(s): I48.2 - CHRONIC ATRIAL FIBRILLATION Status: Chronic Comment: on xarelto and CCB (5) History of pulmonary embolism Code(s): Z86.711 - PERSONAL HISTORY OF PULMONARY EMBOLISM Status: Chronic (6) HTN (hypertension) Code(s): I10 - ESSENTIAL (PRIMARY) HYPERTENSION Status: Chronic (7) Asthma Code(s): J45.909 - UNSPECIFIED ASTHMA, UNCOMPLICATED Status: Acute - Plan continue antibiotics, PT/OT, out of bed/ambulate, DVT proph w/SCDs Cont rocephin.urine Cx results noted.cont IVF. -: encourage Po intake,ambulation -: discussed wandy w Pt.high risk for fall.will d/w PCP the same -: rehab eval. -: BP & HR high.Add low dose BB.monitor * . Review of Systems - Review of Systems Constitutional: weakness, malaise. negative: fever, chills, sweats, other ENT: negative: Ear Pain, Ear Discharge, Nose Pain, Nose Discharge, Nose Congestion, Mouth Pain, Mouth Swelling, Throat Pain, Throat Swelling, Other Respiratory: negative: Cough, Dry, Shortness of Breath, Hemoptysis, SOB with Excertion, Pleuritic Pain, Sputum, Wheezing Gastrointestinal: Nausea Genitourinary: negative: Dysuria, Frequency, Incontinence, Hematuria, Retention , Other Musculoskeletal: Shoulder Pain. negative: Neck Pain, Arm Pain, Back Pain, Hand Pain, Leg Pain, Foot Pain, Other Skin: negative: Rash, Lesions, Bandar, Bruising, Other Neurological: negative: Weakness, Numbness, Incoordination, Change in Speech, Confusion, Seizures, Other - Medications/Allergies Allergies/Adverse Reactions: Allergies Allergy/AdvReac Type Severity Reaction Status Date / Time No Known Drug Allergies Allergy Verified 01/24/17 13:41 Medications: Current Medications Acetaminophen (Tylenol) 650 mg PO Q6H PRN PRN Reason: Headache/Fever or Pain Albuterol Sulfate (Albuterol Sulfate) 1.25 mg NEB Q4H PRN PRN Reason: SOB &/or Wheezing Bismuth Subsalicylate (Pepto Bismol) 15 ml PO Q4H PRN PRN Reason: Dyspepsia Diltiazem HCl (Cardizem Cd) 240 mg PO DAILY [facility] Last Admin: 09/18/17 09:41 Dose: 240 mg Ceftriaxone Sodium 1 gm/ (Sodium Chloride) 100 mls @ 200 mls/hr IVPB Q24HR [facility] Last Admin: 09/18/17 13:03 Dose: 100 mls Potassium Chloride/Sodium Chloride (Ns 0.9% W/ 20 Meq Kcl) 1,000 ml in 1,000 mls @ 75 mls/hr IV .[id number] [facility] Last Admin: 09/18/17 09:45 Dose: 1,000 mls Metoclopramide HCl (Reglan) 5 mg PO ACHS PRN PRN Reason: Nausea Rivaroxaban (Xarelto) 20 mg PO 0600 [facility] Last Admin: 09/18/17 06:02 Dose: 20 mg Saccharomyces Boulardii (Florastor) 250 mg PO DAILY [facility] Sodium Chloride (Flush - Normal Saline) 10 ml IVF PRN PRN PRN Reason: Saline Flush Tramadol HCl (Ultram) 50 mg PO Q4H PRN PRN Reason: pain Last Admin: 09/18/17 12:45 Dose: 50 mg
[2017-09-18] MEDS: Sodium Chloride 0.9% 1,000 ML IV SCH (15:38)
[2017-09-18] MEDS ORDERED: Metoprolol Tartrate 25 MG TAB PO SCH (15:45)
[2017-09-18] MEDS: Metoprolol Tartrate 25 MG TAB PO SCH (20:44)
[2017-09-18] MEDS: Acetaminophen 325 MG TAB PO PRN (20:44)
[2017-09-19 04:09] LABS: Anion Gap 12 mmol/L (10-20); BUN (Urea Nitrogen) 10 mg/dL (9.8-20.1); Calc. Creatinine Clearance 47 mL/min (70-130); Calcium 10.2 mg/dL (7.8-10.44); Carbon Dioxide 24 mmol/L (23-31); Chloride 106 mmol/L (98-107); Estimated GFR-MDRD 90; Glucose 107 mg/dL (83-110); Potassium 4.2 mmol/L (3.5-5.1); Sodium 138 mmol/L (136-145)
[2017-09-19] MEDS: Rivaroxaban 10 MG TAB PO SCH (06:20)
[2017-09-19] MEDS: Acetaminophen 325 MG TAB PO PRN (06:20)
[2017-09-19 08:05] VITALS: TEMP 97.6
[2017-09-19] MEDS: Metoprolol Tartrate 25 MG TAB PO SCH (08:31)
[2017-09-19] MEDS ORDERED: Saccharomyces boulardii 250 MG CAP PO SCH (09:00)
[2017-09-19] MEDS: Sodium Chloride 0.9% 1,000 ML IV SCH ×2 (10:52→11:57)
[2017-09-19 12:21] VITALS: BP 149/92
[2017-09-19] MEDS: cefTRIAXone\\ROCEPHIN 1 GM in Sodium Chloride 0.9% 100 ML IVPB SCH (13:36)
--- NOTE | 2017-09-20 00:55 | DIS ---
DATE OF ADMISSION: 09/16/2017 DATE OF DISCHARGE: 09/19/2017 CONDITION AT THE TIME OF DISCHARGE: Stable and improved. DISCHARGE DISPOSITION: [facility]. DISCHARGE DIAGNOSES: 1. Urinary tract infection. 2. Altered mental status secondary to #1, resolved. 3. Fall in the house which was a mechanical fall. 4. Chronic atrial fibrillation on Xarelto and calcium channel lucy. 5. History of pulmonary embolism. 6. Hypertension. 7. Asthma. DISCHARGE MEDICATIONS: Resume home medications as follows: Xarelto 20 mg daily, Lopressor tartrate 12.5 mg p.o. b.i.d., diltiazem 240 mg daily, Pepto-Bismol daily, albuterol p.r.n., Tylenol p.r.n., le vofloxacin 500 mg p.o. daily for 5 more days. PROCEDURES DONE IN THE HOSPITAL: CT scan of the brain which is negative for any acute intracranial a bnormalities. CONSULTATIONS: None. PRIMARY CARE PHYSICIAN: Dr. Jaylon Beckwith. LABORATORY EXAMINATION: Urine culture showed Enterobacter cloacae, which is pansensitive except for cefoxitin. Blood cultures remain negative until date. HISTORY OF PRESENTING ILLNESS: Ms. Ryan is an 87-year-old female who was rather independent and v ethel active with past medical history of chronic atrial fibrillation on chronic anticoagulation as wel l as history of pulmonary embolism in 01/2017 who presented to the emergency room with complaints of feeling unwell. She has been having intermittent nausea, vomiting, and diarrhea for the past six mon ths and has undergone GI workup with Dr. Enrique as an outpatient. She fell at home and was brought in for complaints of altered mental status. In the ER, she was found to have urinary tract infection. Cultures were obtained and she was admitted for further evaluation and care. Please see admission hi story and physical for further details. HOSPITAL COURSE: The patient's urine culture came back positive for Enterobacter cloacae, which was pansensitive. Antibiotics were changed to oral on discharge. Rehab was made available to her and courtney joe agreed to that. She was accepted at [facility] and was disch arged earlier today in stable condition. Her encephalopathy has improved and she is at baseline. Discharge anticoagulation with the patient and at this time she would like to discuss it with primary care physician, Dr. Ridgeway as she has been on it for a long time for chronic atrial fibrillation as w ell as pulmonary embolism. At this time, I do feel that the patient is a higher risk for reoccurring blood clots and stroke if she stops her anticoagulation. She is not a high risk for fall as she is very independent and active with her ADLs and IADLs. She was seen and examined prior to discharge. PHYSICAL EXAMINATION: VITAL SIGNS: This morning, temperature 97.6, pulse of 83, respirations 20, saturating 96% on room ai r, blood pressure 149/92. GENERAL: No acute distress, sitting up in chair eating lunch. CHEST: Clear to auscultation without any wheezing, rales or rhonchi. Rhythm is regular without any murmur, rubs or gallops. Patient will follow up with Dr. Martinez at [facility].
== END 2017-09-19 14:20 | DRG 689 ==
LOC: ERS 10:28 → SURG A 12:45
PROVIDERS: ADMIT Family Medicine; ATTEND Family Medicine
DX: N39.0 Urinary tract infection, site not specified (principal); G93.41 Metabolic encephalopathy; W19.XXXA Unspecified fall, initial encounter; I48.2 Chronic atrial fibrillation; Z79.01 Long term (current) use of anticoagulants; Z86.711 Personal history of pulmonary embolism; I10 Essential (primary) hypertension; J45.909 Unspecified asthma, uncomplicated; B96.89 Other specified bacterial agents as the cause of diseases classified elsewhere; K52.9 Noninfective gastroenteritis and colitis, unspecified; I45.81 Long QT syndrome
CPT/HCPCS: 36415; 51701; 70450; 71045; 80048; 80053; 81003; 81015; 82274; 82550; 82553; 83605; 83690; 83735; 84484; 85025; 86674; 86850; 86900; 86901; 87040; 87077; 87086; 87186; 93005; 96365; 96375; A4353; G8978-GP-CJ; G8979-GP-CH; G8987-GO-CJ; G8988-GO-CI; J0696; J2765; J7050; Q0162

== ENCOUNTER 2017-11-06 15:27 | Inpatient (IN) | payer MEDICARE, BC ==
[2017-11-06 16:17] LABS: #Basophils 0.1 thou/uL (0.0-0.2); #Lymphocytes 1.2 thou/uL (1.20-3.40); #Monocytes 1.1 thou/uL (0.11-0.59); #Neutrophils 7.7 thou/uL (1.40-6.50); %Basophils 0.5 % (0.0-1.0); %Eosinophils 0.2 % (0.0-10.0); %Lymphocytes 11.8 % (21.0-51.0); %Monocytes 10.6 % (0.0-10.0); %Neutrophils 76.8 % (42.0-75.0); Hemoglobin 12.3 g/dL (12.0-16.0); Mean Corpuscular HGB CONC 33.6 g/dL (32.0-36.0); Mean Corpuscular Volume 92.2 fL (78.0-98.0); Mean Platelet Volume 8.3 fL (7.4-10.4); Platelet Count 295 thou/uL (130-400); RBC Distribution Width 13.2 % (11.5-14.5); Red Blood Cell (RBC) Count 3.97 mill/uL (4.20-5.40)
--- NOTE | 2017-11-06 16:29 | RAD ---
PORTABLE AP CHEST X-RAY: 11/06/2017 HISTORY: Chest pain. COMPARISON: 09/16/2017 FINDINGS: The cardiac silhouette and pulmonary vasculature are within normal limits for the portable technique of the study. Linear densities are seen at the right lung base, likely related to atelectasis. The lungs are otherwise clear. A linear density overlying the right mid lung zone is likely related to a n overlying skin fold. Vascular calcification is seen in the thoracic aorta. Osteopenia is present. There is right convex curvature of the thoracolumbar spine. There has been no interval change from prior exam. IMPRESSION: No acute cardiopulmonary process. POS: [facility]
[2017-11-06 16:40] LABS: ALT (SGPT) 12 U/L (8-55); AST (SGOT) 17 U/L (5-34); Albumin 3.5 g/dL (3.4-4.8); Alkaline Phosphatase 118 U/L (40-150); Anion Gap 15 mmol/L (10-20); BUN (Urea Nitrogen) 16 mg/dL (9.8-20.1); Bilirubin, Total 0.6 mg/dL (0.2-1.2); CK (CPK) 17 U/L (29-168); Calc. Creatinine Clearance 0 mL/min (70-130); Calcium 10.3 mg/dL (7.8-10.44); Carbon Dioxide 20 mmol/L (23-31); Chloride 102 mmol/L (98-107); Estimated GFR-MDRD 65; Globulin 3.6 g/dL (2.4-3.5); Glucose 162 mg/dL (83-110); Potassium 4.5 mmol/L (3.5-5.1); Protein, Total 7.1 g/dL (6.0-8.3); Sodium 132 mmol/L (136-145)
[2017-11-06 16:41] LABS: CKMB 0.6 ng/mL (0-6.6); Troponin I Less than 0.010 ng/mL (< 0.028)
--- NOTE | 2017-11-06 20:16 | RAD ---
RIGHT HIP TWO VIEWS: HISTORY: Fell last week. Having hip pain. COMPARISON: 01/29/2017 FINDINGS: There is some soft tissue ossification in the buttocks region. There is generalized bony demineraliz ation. I do not see any definite signs of a femoral neck fracture. On one of the projections, there is some subtle lucency in the region of the right superior and inferior pubic rami. These findings are very equivocal. If the patient has pain that would be felt to be possibly related to this area, then consideration of a CT of the pelvis to evaluate for a subtle fracture would be recommended. IMPRESSION: Questionable subtle superior and inferior pubic rami fractures on the right. POS: [facility]
[2017-11-06] MEDS ORDERED: HYDROcodone/Acetaminophen 5/325 mg Tablet ONE (21:14)
--- NOTE | 2017-11-06 21:23 | CT ---
CT PELVIS WITHOUT CONTRAST: HISTORY: Possible right-sided superior and inferior pubic ramus fracture. TECHNIQUE: Axial images are obtained with coronal reconstructions. FINDINGS: CT images demonstrate a definite inferior pubic ramus fracture. There is also an area of lucency see n on the coronal images, in the superior pubic ramus, laterally. This is compatible with acute fract ures. Left hip surgical repair screws are in place. There is marked atherosclerotic calcification of the distal aorta and iliac arteries. Extensive colonic diverticulosis is also present. IMPRESSION: Right pelvic superior and inferior pubic ramus fractures. POS: [facility]
[2017-11-06 22:32] LABS: Bilirubin Negative (Negative); Blood, Urine Negative (Negative); Clarity CLEAR (Clear); Glucose, Urine (Dipstick) Negative (Negative); Leukocyte Negative (Negative); Nitrite Negative (Negative); Protein, Urine (Dipstick) Negative (Neg-Trace); Specific Gravity, Urine 1.011 (1.002-1.036); pH, Urine 6.5 (5.0-9.0)
[2017-11-06] MEDS ORDERED: Ondansetron HCl/PF 4 MG/2 ML Vial IVP PRN (23:27)
[2017-11-06] MEDS ORDERED: Ondansetron ODT 4 MG TAB SL PRN (23:27)
[2017-11-06] MEDS ORDERED: HYDROcodone/Acetaminophen 5/325 mg Tablet PO PRN (23:27)
[2017-11-06 23:39] VITALS: BMI 18.2
[2017-11-07] MEDS ORDERED: Prevnar 13-Val Conj/PF 0.5 ML SYRINGE IM ONE (09:00)
--- NOTE | 2017-11-07 10:08 | CON ---
DATE OF CONSULTATION: 11/07/2017 Dictating a consultation note on behalf of Clemente Diamond. REQUESTING PHYSICIAN: [facility]. CONSULTING PHYSICIAN: Dr. Clemente Diamond. REASON FOR CONSULTATION: Pelvis fractures. HISTORY OF PRESENT ILLNESS: This is an 87-year-old female who presented to our emergency department with complaints of tachycardia, status post fall according to family. The patient has a history of b orderline dementia. Currently, at bedside there is no family present. History is obtained primarily from ER records. According to ER records, patient presented to the ER with a rate of 122. Ayla morillo at that time had reported that the patient was experiencing dizziness. The patient was found t o have pubic ramus and acetabulum fractures in the emergency department and our service was consulted . Currently, at bedside, patient appears agitated. She is confused where she is currently located. She does not denies any current pain or otherwise complaints. PAST MEDICAL HISTORY: Significant for cardiac history with arrhythmia and atrial fibrillation. She is currently on Xarelto at home. She also has a history of asthma, hypertension, and a history of a PE. PAST SURGICAL HISTORY: Significant for hysterectomy and a left hip surgery. SOCIAL HISTORY: Patient denies alcohol use, tobacco use or illicit drug use. She states that she li ves at home alone and uses a walker for ambulation purposes. ALLERGIES: No known drug allergies. REVIEW OF SYSTEMS: Unable to obtain secondary to the patient's dementia. PHYSICAL EXAMINATION: VITAL SIGNS: Temperature 97.8, pulse of 91, respiratory rate of 20, blood pressure 124/54. GENERAL: Patient is currently in the unit right now for telemetry overflow. She is awake and alert. She became somewhat confused and does not understand where she is located right now. She believes she is in the emergency department. No family at bedside. HEENT: Head is normocephalic, atraumatic. NECK: Supple. Trachea midline. Breathing is nonlabored. EXTREMITIES: All 4 extremities were examined. The patient moves bilateral upper extremities without difficulty. No injuries are noted. The patient also moves bilateral lower extremities. Pelvis is palpated. The patient does have some pain elicited on the right side of the pelvis with a rocking mo tion. Distal neurovascular status intact. Bilateral lower extremities with pulses intact to the DP and PT. Radiographic imaging reviewed including hip x-rays and pelvis CT which were reviewed by Dr. Diamond as well as myself and show a nondisplaced right acetabulum fracture as well as a pubic ramus fracture . ASSESSMENT: Right inferior pubic rami fracture and right nondisplaced acetabulum fracture. PLAN: At this point, there is no family at bedside to discuss plan of care with. I have discussed w ashleigh the patient briefly, however, due to her baseline dementia, I am not sure how much she comprehend s. Neither of these fractures is operative. We will manage this conservatively. The patient worked with physical therapy. She will weightbear as tolerated. She will be limited somewhat by her own p ain. She may follow up in the clinic in 3-4 weeks for further evaluation. We will continue to mary fan
[2017-11-07] MEDS ORDERED: Ondansetron ODT 4 MG TAB PO PRN (17:03)
[2017-11-07] MEDS ORDERED: Acetaminophen 325 MG TAB PO PRN (17:03)
[2017-11-07] MEDS ORDERED: HYDROcodone/Acetaminophen 5/325 mg Tablet PO PRN (17:03)
[2017-11-07] MEDS ORDERED: Acetaminophen 650 MG Suppository PR PRN (17:03)
[2017-11-07] MEDS ORDERED: Ondansetron HCl/PF 4 MG/2 ML Vial IVP PRN (17:03)
[2017-11-07] MEDS: Famotidine 20 MG TAB PO SCH (19:32)
[2017-11-07] MEDS: HYDROcodone/Acetaminophen 5/325 mg Tablet PO PRN (19:33)
[2017-11-07] MEDS: Docusate 100 MG CAP PO SCH (19:33)
[2017-11-08 04:44] LABS: #Basophils 0.1 thou/uL (0.0-0.2); #Eosinphils 0.1 thou/uL (0.0-0.7); #Lymphocytes 1.7 thou/uL (1.20-3.40); #Monocytes 0.9 thou/uL (0.11-0.59); %Basophils 0.8 % (0.0-1.0); %Eosinophils 1.1 % (0.0-10.0); %Lymphocytes 22.4 % (21.0-51.0); %Monocytes 11.4 % (0.0-10.0); %Neutrophils 64.4 % (42.0-75.0); Hemoglobin 10.8 g/dL (12.0-16.0); Mean Corpuscular HGB CONC 32.8 g/dL (32.0-36.0); Mean Corpuscular Hemoglobin 30.3 pg (27.0-31.0); Mean Corpuscular Volume 92.5 fL (78.0-98.0); Mean Platelet Volume 7.5 fL (7.4-10.4); Platelet Count 303 thou/uL (130-400); RBC Distribution Width 12.9 % (11.5-14.5); Red Blood Cell (RBC) Count 3.57 mill/uL (4.20-5.40); White Blood Cell (WBC) Count 7.7 thou/uL (4.8-10.8)
[2017-11-08 04:52] LABS: Anion Gap 10 mmol/L (10-20); BUN (Urea Nitrogen) 16 mg/dL (9.8-20.1); Calc. Creatinine Clearance 40 mL/min (70-130); Carbon Dioxide 26 mmol/L (23-31); Chloride 104 mmol/L (98-107); Estimated GFR-MDRD 82; Glucose 99 mg/dL (83-110); Potassium 4.4 mmol/L (3.5-5.1); Sodium 136 mmol/L (136-145)
[2017-11-08] MEDS: Famotidine 20 MG TAB PO SCH (08:43)
[2017-11-08] MEDS: HYDROcodone/Acetaminophen 5/325 mg Tablet PO PRN ×2 (08:44→20:00)
[2017-11-08] MEDS: Docusate 100 MG CAP PO SCH ×2 (08:45→20:00)
[2017-11-09 07:30] VITALS: TEMP 98.1
[2017-11-09] MEDS: Docusate 100 MG CAP PO SCH (08:50)
[2017-11-09] MEDS ORDERED: Famotidine 20 MG TAB PO SCH (09:00)
[2017-11-09] MEDS: HYDROcodone/Acetaminophen 5/325 mg Tablet PO PRN (13:54)
[2017-11-09 17:01] VITALS: BP 152/64
--- NOTE | 2017-11-11 11:46 | EKG ---
Test Reason : FALL Blood Pressure : / mmHG Vent. Rate : 104 BPM Atrial Rate : 111 BPM P-R Int : 000 ms QRS Dur : 088 ms QT Int : 340 ms P-R-T Axes : 000 -08 138 degrees QTc Int : 447 ms Sinus tachycardia with 1st degree A-V block Nonspecific ST-T changes Abnormal ECG Confirmed by BABITA EARL DO ([id number]), editor news JEROMY NEAL ([id number]) on 11/11/2017 11:46:31 AM Referred By: Confirmed By:BABITA EARL DO
--- NOTE | 2017-11-11 13:22 | EKG ---
Test Reason : TACHYCARDIA Blood Pressure : / mmHG Vent. Rate : 125 BPM Atrial Rate : 125 BPM P-R Int : 132 ms QRS Dur : 086 ms QT Int : 308 ms P-R-T Axes : 000 005 146 degrees QTc Int : 444 ms Sinus tachycardia Abnormal ECG Confirmed by MÓNICA MERIDA ([id number]), scientific publications editor JEROMY NEAL ([id number]) on 11/11/2017 1:22:17 PM Referred By: ALVAWAClotilde Confirmed By:MÓNICA MERIDA
== END 2017-11-09 17:00 | DRG 536 ==
LOC: ERS 15:27 → IMCU/EMU 22:05 → 2SE 11-07 10:14 → T4-A 11-07 18:09
PROVIDERS: ADMIT Hospitalist; ATTEND Hospitalist
DX: S32.591A Other specified fracture of right pubis, initial encounter for closed fracture (principal); J45.909 Unspecified asthma, uncomplicated; I48.91 Unspecified atrial fibrillation; I10 Essential (primary) hypertension; F03.90 Unspecified dementia, unspecified severity, without behavioral disturbance, psychotic disturbance, mood disturbance, and anxiety; Z79.01 Long term (current) use of anticoagulants; Z86.711 Personal history of pulmonary embolism
CPT/HCPCS: 36415; 51701; 71045; 72192; 80048; 80053; 81003; 82553; 83605; 83690; 84484; 85025; 87040; 93005; 94760; 96360; G8978-GP-CL; G8979-GP-CJ; G8987-GO-CK; G8988-GO-CI; J2405; Q0162

== ENCOUNTER 2018-05-28 10:07 | Observation (INO) | payer MEDICARE, BC ==
--- NOTE | 2018-05-28 10:35 | RAD ---
CHEST 1 VIEW: Date: 05/28/18 HISTORY: Dyspnea. History of asthma. COMPARISON: 11/06/17. FINDINGS: Monitor leads overlie the chest. Minimal increased linear and interstitial markings are noted bilater ally, but stable. No confluent pneumonia, overt edema, or pleural effusion. Bone demineralization wit h arthrosis changes of both shoulders. IMPRESSION: Minimal stable chronic changes. No acute intrathoracic disease. Atherosclerosis of aorta. POS: [facility]
[2018-05-28 10:38] LABS: #Eosinphils 0.2 thou/uL (0.0-0.7); #Lymphocytes 1.8 thou/uL (1.20-3.40); #Monocytes 0.5 thou/uL (0.11-0.59); #Neutrophils 3.6 thou/uL (1.40-6.50); %Basophils 0.5 % (0.0-1.0); %Eosinophils 3.4 % (0.0-10.0); %Lymphocytes 28.6 % (21.0-51.0); %Monocytes 8.8 % (0.0-10.0); %Neutrophils 58.6 % (42.0-75.0); Hemoglobin 12.1 g/dL (12.0-16.0); Mean Corpuscular HGB CONC 31.8 g/dL (32.0-36.0); Mean Corpuscular Hemoglobin 30.6 pg (27.0-31.0); Mean Corpuscular Volume 96.3 fL (78.0-98.0); Mean Platelet Volume 9.4 fL (7.4-10.4); Platelet Count 165 thou/uL (130-400); RBC Distribution Width 13.3 % (11.5-14.5); Red Blood Cell (RBC) Count 3.96 mill/uL (4.20-5.40); White Blood Cell (WBC) Count 6.1 thou/uL (4.8-10.8)
[2018-05-28] MEDS ORDERED: methylPREDNISolone Sod Succ/PF 125 MG/2 ML VIAL ONE (10:43)
[2018-05-28 11:11] LABS: ALT (SGPT) 14 U/L (8-55); AST (SGOT) 22 U/L (5-34); Albumin 4.3 g/dL (3.4-4.8); Alkaline Phosphatase 76 U/L (40-150); Anion Gap 12 mmol/L (10-20); BUN (Urea Nitrogen) 18 mg/dL (9.8-20.1); Bilirubin, Total 0.4 mg/dL (0.2-1.2); CK (CPK) 55 U/L (29-168); Calc. Creatinine Clearance 0 mL/min (70-130); Calcium 10.6 mg/dL (7.8-10.44); Carbon Dioxide 30 mmol/L (23-31); Chloride 102 mmol/L (98-107); Estimated GFR-MDRD 59; Globulin 3.3 g/dL (2.4-3.5); Glucose 122 mg/dL (83-110); Potassium 4.7 mmol/L (3.5-5.1); Protein, Total 7.6 g/dL (6.0-8.3); Sodium 139 mmol/L (136-145)
[2018-05-28 11:36] LABS: CKMB 2.8 ng/mL (0-6.6)
[2018-05-28] MEDS ORDERED: Aspirin 325 MG TAB ONE (11:41)
--- NOTE | 2018-05-28 11:49 | CT ---
FCTA Angio Chest W WO Con History: [Dyspnea] Comparison: Radiograph same day Findings: CT angiogram of the chest performed after the intravenous administration of contrast. 3-D r endering provided. There is no proximal segmental pulmonary arterial filling defect. Heart size is en larged. There is reflux contrast within the suprahepatic IVC and hepatic veins. No mediastinal adenopathy. No pneumothorax. No effusion. No confluent consolidation. Mild atelectatic changes in the lung bases. Impression: 1. No proximal segmental pulmonary arterial filling defect. 2. No acute inflammatory process in the chest. 3. Age-indeterminate compression deformity L1.
[2018-05-28] MEDS ORDERED: Acetaminophen 325 MG TAB PO PRN (14:14)
[2018-05-28] MEDS ORDERED: Ondansetron ODT 4 MG TAB PO PRN (14:14)
[2018-05-28] MEDS ORDERED: traMADol HCl 50 MG TAB PO PRN (14:21)
[2018-05-28 14:33] LABS: Troponin I 0.097 ng/mL (< 0.028)
[2018-05-28] MEDS ORDERED: ISOVUE-370 76%-LOCM 1 ML ONE (14:46)
--- NOTE | 2018-05-28 15:07 | HP ---
PRIMARY CARE PROVIDER: Jaylon Beckwith MD HISTORY OF PRESENT ILLNESS: [facility] for non ST-elevation RI. The patient is seen by me. She states that she had acute asthma attack this morning and feels okay now. I asked if she had any chest pain, she said no. Any fever or chills, she said no. Any smothering spells at night, she said no. I started asking about her past medical history and she said I do not want to answer any more questions and that was the end of answers. PAST MEDICAL HISTORY: Pertinent for dementia, pulmonary embolus in 01/2017, hypertension, asthma, hairline hip fracture in 01/2017. On 02/06, she also had a fall with nonoperative pelvic fracture, asthma. CURRENT MEDICATIONS: Are listed as, 1. Aspirin 81 mg a day. 2. Cardizem 240 mg a day. 3. Colace 100 mg a day. 4. Fluticasone nasal spray in her nose twice a day. 5. Ibuprofen 600 mg p.o. q.4 hours p.r.n. pain. 6. DuoNeb 2.5 every 6 hours. 7. Levsin 0.125 mg/mL sublingual every 4 hours p.r.n. 8. Lorazepam concentrate 2 mg/mL every 2 hours for restlessness. 9. Meclizine. 10. Melatonin. 11. Morphine concentrate tray 100 mg/5 mL, 0.5 to 1 mL IM every 4 hours p.r.n. 12. ProAir HFA one inhalation every 12 hours. 13. Prozac 10 mg a day. 14. Risperdal 0.25 mg twice a day. ALLERGIES: NO KNOWN DRUG ALLERGIES. PAST SURGICAL HISTORY: Hysterectomy, hip surgery on the right after a fracture. SOCIAL HISTORY: According to her medical record, she lives at home with family. I do not have a code status. There is no family here at the present time. She denies alcohol or tobacco use per her past medical history. FAMILY HISTORY: No cancer. It is positive for heart disease. REVIEW OF SYSTEMS: Not obtainable. She refuses to answer questions. PHYSICAL EXAMINATION: GENERAL: She is alert, comfortable lady. VITAL SIGNS: Currently her O2 saturation is 96 on room air, temperature 98.7, blood pressure 150/70, pulse ranges from 80-100, respirations are 16. HEAD, EYES, EARS, NOSE, AND THROAT: Revealed pupils are equal, round, and reactive to light. Extraocular movements are intact. Sclerae are white. Tympanic membranes are clear. Nose is clear. Oral mucous membranes are wet. Dental hygiene is adequate. NECK: No jugular venous distention, adenopathy or thyromegaly. CHEST: Clear to auscultation and percussion. HEART: Irregular rate and rhythm. First and second heart sounds are variable. No murmurs noted. ABDOMEN: Soft. Bowel sounds are normal. No hepatosplenomegaly. No mass. No rebound. EXTREMITIES: Reveal no cyanosis, clubbing, or edema. Pulses; carotid, radial, femoral, and dorsalis pedis pulses are symmetric. SKIN: Warm and dry without bruises or rash. HEME/LYMPH: No tender or swollen lymph nodes, axilla, inguinal, or cervical area. NEUROLOGICAL: Oriented to person only. Cranial nerves 2 through 12 are intact. Deep tendon reflexes are symmetric. Moves all extremities. LABORATORY DATA: CBC unremarkable. D-dimer was elevated at 0.78. Comprehensive metabolic profile was abnormal only and glucose 122, calcium 10.6. Troponin was 0.14 and BNP was 520. Chest x-ray was clear with no infiltrate, cardiomegaly or CHF. Reviewed by me. EKG reviewed, atrial fibrillation, rate about 100-[address] changes in the lateral leads. Reviewed by me. CT of the chest revealed no evidence of pulmonary emboli. ADMITTING DIAGNOSES: 1. Dyspnea, resolved. 2. Apparent hypoxia, resolved. 3. Atrial fibrillation with modestly elevated ventricular response. There is a question of whether she has had her medicines today. 4. Hypertension. 5. Dementia. 6. Elevated troponin. PLAN: Admit on observation basis. Serial troponins. DuoNeb therapy every 4 hours p.r.n. Dulera 100/5 one puff b.i.d. Resume home medicines. Job ID: [id number]
[2018-05-28 18:39] LABS: Troponin I 0.109 ng/mL (< 0.028)
[2018-05-28] MEDS: Mometasone/Formoterol 120 PUFF INHALER INH SCH (19:28)
[2018-05-28] MEDS ORDERED: Lorazepam 2 MG/ML VIAL ONE (23:15)
[2018-05-28] MEDS ORDERED: Lorazepam 2 MG/ML VIAL SLOW IVP SCH (23:15)
[2018-05-28 23:32] VITALS: BMI 17.6
[2018-05-29 05:23] LABS: Anion Gap 12 mmol/L (10-20); BUN (Urea Nitrogen) 21 mg/dL (9.8-20.1); Calc. Creatinine Clearance 34 mL/min (70-130); Calcium 9.9 mg/dL (7.8-10.44); Carbon Dioxide 25 mmol/L (23-31); Chloride 106 mmol/L (98-107); Estimated GFR-MDRD 71; Glucose 136 mg/dL (83-110); Potassium 4.3 mmol/L (3.5-5.1); Sodium 139 mmol/L (136-145)
[2018-05-29 05:42] LABS: #Lymphocytes 0.6 thou/uL (1.20-3.40); #Monocytes 0.3 thou/uL (0.11-0.59); #Neutrophils 5.2 thou/uL (1.40-6.50); %Basophils 0.1 % (0.0-1.0); %Eosinophils 0.1 % (0.0-10.0); %Lymphocytes 9.3 % (21.0-51.0); %Monocytes 5.1 % (0.0-10.0); %Neutrophils 85.4 % (42.0-75.0); Hemoglobin 11.2 g/dL (12.0-16.0); Mean Corpuscular HGB CONC 32.7 g/dL (32.0-36.0); Mean Corpuscular Hemoglobin 31.2 pg (27.0-31.0); Mean Corpuscular Volume 95.4 fL (78.0-98.0); Mean Platelet Volume 8.7 fL (7.4-10.4); Platelet Morphology Comment PLT clumps seen-ADEQ; RBC Distribution Width 13.3 % (11.5-14.5); Red Blood Cell (RBC) Count 3.58 mill/uL (4.20-5.40); White Blood Cell (WBC) Count 6.1 thou/uL (4.8-10.8)
[2018-05-29] MEDS: Mometasone/Formoterol 120 PUFF INHALER INH SCH ×2 (06:57→19:20)
[2018-05-29] MEDS: Enoxaparin Sodium 40 MG/0.4 ML SYRINGE SC SCH (08:50)
[2018-05-29] MEDS: Aspirin 81 mg Enteric Coated Tablet PO SCH (08:50)
--- NOTE | 2018-05-29 11:08 | PDOC.PN ---
- Subjective Encounter Start Date: 05/29/18 Encounter Start Time: 11:06 Subjective: hollering, uncooperative - Objective Resuscitation Status - Order Detail: 05/28/18 14:14 Resuscitation Status Routine Resuscitation Status: FULL: Full Resuscitation Discussed with: dementia, no POA present MAR Reviewed: Yes Vital Signs & Weight: Vital Signs (12 hours) Temp Pulse Resp BP BP Pulse Ox 05/29/18 08:50 105 H 140/70 05/29/18 08:00 97.6 F 105 H 18 140/70 96 05/29/18 06:57 110 H 16 05/29/18 04:00 97.7 F 113 H 20 137/74 94 L Weight Admit Weight 90 lb 6.4 oz Weight 90 lb 6.4 oz I&O: 05/28/18 05/29/18 05/30/18 06:59 06:59 06:59 Intake Total 120 Balance 120 Result Diagrams: 05/29/18 04:41 05/29/18 04:41 Phys Exam - Physical Examination Neck: no JVD Respiratory: clear to auscultation bilateral Cardiovascular: irregular Gastrointestinal: soft Musculoskeletal: no edema Dx/Plan (1) Atrial fibrillation Code(s): I48.91 - UNSPECIFIED ATRIAL FIBRILLATION Status: Chronic Qualifiers: Atrial fibrillation type: chronic Qualified Code(s): I48.2 - Chronic atrial fibrillation (2) Dementia Code(s): F03.90 - UNSPECIFIED DEMENTIA WITHOUT BEHAVIORAL DISTURBANCE Status: Chronic Qualifiers: Dementia type: unspecified type Dementia behavioral disturbance: without behavioral disturbance Qualified Code(s): F03.90 - Unspecified dementia without behavioral disturbance (3) Elevated troponin Code(s): R74.8 - ABNORMAL LEVELS OF OTHER SERUM ENZYMES Status: Acute (4) HTN (hypertension) Code(s): I10 - ESSENTIAL (PRIMARY) HYPERTENSION Status: Chronic Qualifiers: Hypertension type: essential hypertension Qualified Code(s): I10 - Essential (primary) hypertension - Plan no indication for further ORDONEZ -: not safe for chronic anticoag, risk of fall, etc -: son declines to take her home, says she needs placment -: CM consult * .
[2018-05-30] MEDS: Lorazepam 1 MG TAB PO PRN ×2 (01:18→18:28)
[2018-05-30] MEDS: Mometasone/Formoterol 120 PUFF INHALER INH SCH ×2 (06:32→18:49)
[2018-05-30] MEDS: Enoxaparin Sodium 40 MG/0.4 ML SYRINGE SC SCH (09:30)
[2018-05-30] MEDS: Aspirin 81 mg Enteric Coated Tablet PO SCH (09:30)
--- NOTE | 2018-05-30 12:40 | PDOC.PN ---
- Subjective Encounter Start Date: 05/30/18 Encounter Start Time: 12:39 Subjective: pleasantly for a change - Objective Resuscitation Status - Order Detail: 05/28/18 14:14 Resuscitation Status Routine Resuscitation Status: FULL: Full Resuscitation Discussed with: dementia, no POA present MAR Reviewed: Yes Vital Signs & Weight: Vital Signs (12 hours) Temp Pulse Pulse Resp BP BP Pulse Ox 05/30/18 11:33 98.1 F 91 20 145/79 H 95 05/30/18 09:48 122 H 176/92 H 05/30/18 07:38 97.5 F L 96 20 184/89 H 95 05/30/18 06:32 100 16 05/30/18 04:24 89 16 179/78 H 93 L Pulse Ox 05/30/18 11:33 05/30/18 09:48 94 L 05/30/18 07:38 05/30/18 06:32 05/30/18 04:24 Weight Admit Weight 90 lb 6.4 oz Weight 90 lb 6.4 oz I&O: 05/29/18 05/30/18 05/31/18 06:59 06:59 06:59 Intake Total 120 1197 Output Total 400 Balance 120 797 Result Diagrams: 05/29/18 04:41 05/29/18 04:41 Phys Exam - Physical Examination Neck: no JVD Respiratory: clear to auscultation bilateral Cardiovascular: RRR, no significant murmur Gastrointestinal: soft, positive bowel sounds Musculoskeletal: no edema Dx/Plan (1) Atrial fibrillation Code(s): I48.91 - UNSPECIFIED ATRIAL FIBRILLATION Status: Chronic Qualifiers: Atrial fibrillation type: chronic Qualified Code(s): I48.2 - Chronic atrial fibrillation (2) Dementia Code(s): F03.90 - UNSPECIFIED DEMENTIA WITHOUT BEHAVIORAL DISTURBANCE Status: Chronic Qualifiers: Dementia type: unspecified type Dementia behavioral disturbance: without behavioral disturbance Qualified Code(s): F03.90 - Unspecified dementia without behavioral disturbance (3) Elevated troponin Code(s): R74.8 - ABNORMAL LEVELS OF OTHER SERUM ENZYMES Status: Acute (4) HTN (hypertension) Code(s): I10 - ESSENTIAL (PRIMARY) HYPERTENSION Status: Chronic Qualifiers: Hypertension type: essential hypertension Qualified Code(s): I10 - Essential (primary) hypertension - Plan stable, cont current tx, placement * .
[2018-05-30] MEDS ORDERED: Lorazepam 1 MG TAB PO PRN (21:00)
[2018-05-31] MEDS ORDERED: Melatonin 3 MG TAB PO PRN (02:16)
[2018-05-31 03:41] VITALS: TEMP 98.1
--- NOTE | 2018-05-31 07:52 | DIS ---
DATE OF ADMISSION: 05/28/2018 DATE OF DISCHARGE: 05/31/2018 PRIMARY CARE PROVIDER: Jaylon Beckwith MD DISPOSITION: Discharged home. FINAL DIAGNOSES: 1. Acute dyspnea with acute respiratory failure, resolved. 2. Atrial fibrillation. 3. Hypertension. 4. Elevated troponins. 5. Dementia. DISCHARGE MEDICATIONS: Same as her home medications, 1. Aspirin 81 mg a day. 2. Diltiazem 240 mg a day. 3. Meclizine 25 mg p.o. b.i.d. p.r.n. 4. Albuterol, ProAir HFA 2 puffs q.4 h. p.r.n. ALLERGIES: NONE. PENDING AT TIME OF DISCHARGE: Nothing. CODE STATUS: Full. HOSPITAL COURSE: The patient was brought to the [place] [facility] for shortness of breath, referred to [facility]. When first seen by myself as the admitting physician, her shortness of breath had resolved. Her reported hypoxemia had resolved. Physical exam; chest was clear. Heart had an irregular rhythm. She did have an abnormal troponin at 0.14. CBC was really unremarkable. D-dimer was elevated. A CTA of the chest was done in the emergency room, which was unremarkable. Comprehensive metabolic profile was unremarkable except for a borderline elevated blood sugar of 122, followup 136. Her troponins were 0.097, 0.120, 0.109. There was no evidence for further evaluation in this patient. The family stated they were unable to take care of her and take her home. She ended up being in our facility for about 3 days when the son was given the choice between a roughly 7000 dollar a month group home bill or taking her home. He decided, he would take her home. No consultations were obtained. No procedures were done. She is being discharged to the care of her son with followup by Dr. Jaylon Beckwith. Job ID: [id number]
[2018-05-31 07:58] VITALS: BP 142/65
[2018-05-31] MEDS: Mometasone/Formoterol 120 PUFF INHALER INH SCH (08:16)
[2018-05-31] MEDS: Enoxaparin Sodium 40 MG/0.4 ML SYRINGE SC SCH (12:45)
[2018-05-31] MEDS: Aspirin 81 mg Enteric Coated Tablet PO SCH (12:45)
--- NOTE | 2018-06-02 09:47 | EKG ---
Test Reason : Blood Pressure : / mmHG Vent. Rate : 087 BPM Atrial Rate : 081 BPM P-R Int : 000 ms QRS Dur : 092 ms QT Int : 352 ms P-R-T Axes : 000 010 146 degrees QTc Int : 423 ms Atrial fibrillation Nonspecific ST and T wave abnormality , probably digitalis effect Abnormal ECG Confirmed by MOHAN ANTON, MITCH Ragsdale ([id number]), film editor supervisor JEROMY NEAL ([id number]) on 06/02/2018 9:47:41 AM Referred By: Confirmed By:MITCH PRESTON MD
== END 2018-05-31 13:10 | disposition home or self-care (01) ==
LOC: ERS 10:07 → INTOOBSV 12:07 → ERHOLD 12:07 → 2SW 22:56
PROVIDERS: ADMIT Family Medicine; ATTEND Family Medicine
DX: J96.01 Acute respiratory failure with hypoxia (principal); I10 Essential (primary) hypertension; F03.90 Unspecified dementia, unspecified severity, without behavioral disturbance, psychotic disturbance, mood disturbance, and anxiety; J45.909 Unspecified asthma, uncomplicated; R74.8 Abnormal levels of other serum enzymes; I48.2 Chronic atrial fibrillation; Z86.711 Personal history of pulmonary embolism; Z79.82 Long term (current) use of aspirin; Z79.899 Other long term (current) drug therapy
CPT/HCPCS: 71045; 71275; 80048; 80053; 82550; 82553; 83880; 84484 ×2; 85025 ×2; 85379; 93005; 94640 ×4; 94760; 96372 ×2; 96374; 96375; 97139 ×3; 99285; G0378 ×2; 36415; J1650; J2060; J2930; Q0162; Q9966

== ENCOUNTER 2018-07-16 15:42 | Emergency (ER) | payer MEDICARE, BC ==
[2018-07-16] MEDS ORDERED: Dexamethasone 10 MG/ML VIAL ONE (16:04)
[2018-07-16] MEDS ORDERED: Albuterol Sulfate 2.5 mg/0.5 ml Neb ONE (16:13)
[2018-07-16] MEDS ORDERED: Albuterol Sulfate 2.5 mg/3 ml Neb ONE (16:13)
[2018-07-16 16:26] LABS: #Eosinphils 0.1 thou/uL (0.0-0.7); #Lymphocytes 1.9 thou/uL (1.20-3.40); #Monocytes 0.5 thou/uL (0.11-0.59); #Neutrophils 3.5 thou/uL (1.40-6.50); %Basophils 0.4 % (0.0-1.0); %Eosinophils 1.9 % (0.0-10.0); %Lymphocytes 31.6 % (21.0-51.0); %Monocytes 8.2 % (0.0-10.0); %Neutrophils 57.8 % (42.0-75.0); Hemoglobin 11.3 g/dL (12.0-16.0); Mean Corpuscular HGB CONC 33.1 g/dL (32.0-36.0); Mean Corpuscular Hemoglobin 31.1 pg (27.0-31.0); Mean Corpuscular Volume 93.9 fL (78.0-98.0); Mean Platelet Volume 8.5 fL (7.4-10.4); Platelet Count 196 thou/uL (130-400); RBC Distribution Width 12.4 % (11.5-14.5); Red Blood Cell (RBC) Count 3.64 mill/uL (4.20-5.40); White Blood Cell (WBC) Count 6.1 thou/uL (4.8-10.8)
[2018-07-16 16:48] LABS: ALT (SGPT) 13 U/L (8-55); AST (SGOT) 19 U/L (5-34); Albumin 3.9 g/dL (3.4-4.8); Alkaline Phosphatase 82 U/L (40-150); Anion Gap 14 mmol/L (10-20); BUN (Urea Nitrogen) 17 mg/dL (9.8-20.1); Bilirubin, Total 0.2 mg/dL (0.2-1.2); CK (CPK) 51 U/L (29-168); Calc. Creatinine Clearance 0 mL/min (70-130); Calcium 10.1 mg/dL (7.8-10.44); Carbon Dioxide 22 mmol/L (23-31); Chloride 104 mmol/L (98-107); Estimated GFR-MDRD 62; Globulin 2.8 g/dL (2.4-3.5); Glucose 146 mg/dL (83-110); Lipase 39 U/L (8-78); Potassium 3.9 mmol/L (3.5-5.1); Protein, Total 6.7 g/dL (6.0-8.3); Sodium 136 mmol/L (136-145)
--- NOTE | 2018-07-16 17:04 | RAD ---
PORTABLE CHEST 1 VIEW: Date: 07/16/18 Time: 1556 hours HISTORY: Dyspnea. FINDINGS: Comparison made with exam of 05/28/18. The heart size is normal. The aorta is tortuous. The lungs are expanded without lobar consolidation, pneumothoraces, zechariah pulmonary edema, or pleural effusions. IMPRESSION: No acute process. POS: ALISONH
== END 2018-07-16 18:50 | disposition home or self-care (01) ==
LOC: ERS 15:42
DX: J44.1 Chronic obstructive pulmonary disease with (acute) exacerbation (principal); F03.90 Unspecified dementia, unspecified severity, without behavioral disturbance, psychotic disturbance, mood disturbance, and anxiety
CPT/HCPCS: 71045; 80053; 82550; 83690; 83880; 84484; 85025; 93005; 94644; 96361; 96374; J1100; J7611; J7620

== ENCOUNTER 2018-09-07 14:59 | Inpatient (IN) | payer MEDICARE, BC ==
[2018-09-07 15:49] LABS: #Lymphocytes 1.2 thou/uL (1.20-3.40); #Monocytes 0.8 thou/uL (0.11-0.59); #Neutrophils 5.3 thou/uL (1.40-6.50); %Basophils 0.4 % (0.0-1.0); %Eosinophils 0.7 % (0.0-10.0); %Lymphocytes 16.4 % (21.0-51.0); %Neutrophils 71.5 % (42.0-75.0); Hemoglobin 11.4 g/dL (12.0-16.0); Mean Corpuscular HGB CONC 31.3 g/dL (32.0-36.0); Mean Corpuscular Hemoglobin 29.7 pg (27.0-31.0); Mean Corpuscular Volume 94.9 fL (78.0-98.0); Mean Platelet Volume 9.5 fL (7.4-10.4); Platelet Count 162 thou/uL (130-400); RBC Distribution Width 13.1 % (11.5-14.5); Red Blood Cell (RBC) Count 3.85 mill/uL (4.20-5.40); White Blood Cell (WBC) Count 7.5 thou/uL (4.8-10.8)
--- NOTE | 2018-09-07 16:10 | RAD ---
PORTABLE CHEST: 09/07/18 COMPARISON: 07/16/18 study. HISTORY: COPD exacerbation. Heart size is enlarged. There is right sided pleural effusion with right lower lobe atelectasis or in filtrate. Also some mid lung field parenchymal change. Left lung is clear. There are chronic lung joe nges seen. IMPRESSION: Cardiomegaly with a right sided pleural effusion and right lower lobe parenchymal change probably rel ated to an associated infiltrate, although could be on the basis of atelectasis. There is also some i ncreased markings in the right mid lung field. POS: OFF
[2018-09-07 16:12] LABS: ALT (SGPT) 41 U/L (8-55); AST (SGOT) 39 U/L (5-34); Albumin 3.7 g/dL (3.4-4.8); Alkaline Phosphatase 68 U/L (40-150); Anion Gap 11 mmol/L (10-20); BUN (Urea Nitrogen) 26 mg/dL (9.8-20.1); Bilirubin, Total 0.4 mg/dL (0.2-1.2); Calc. Creatinine Clearance 0 mL/min (70-130); Calcium 10.2 mg/dL (7.8-10.44); Carbon Dioxide 26 mmol/L (23-31); Chloride 105 mmol/L (98-107); Estimated GFR-MDRD 66; Globulin 2.7 g/dL (2.4-3.5); Glucose 105 mg/dL (83-110); Potassium 4.2 mmol/L (3.5-5.1); Protein, Total 6.4 g/dL (6.0-8.3); Sodium 138 mmol/L (136-145)
[2018-09-07 17:26] LABS: CKMB 8.2 ng/mL (0-6.6)
[2018-09-07] MEDS ORDERED: methylPREDNISolone Sod Succ/PF 125 MG/2 ML VIAL ONE (17:51)
[2018-09-07] MEDS ORDERED: Enoxaparin Sodium 40 MG/0.4 ML SYRINGE ONE (18:53)
[2018-09-07 19:09] LABS: Critical Call Chem Troponin I RESULT DECREASING; Troponin I 1.732 ng/mL (< 0.028)
[2018-09-07 22:28] LABS: Critical Call Chem Troponin I RESULT DECREASING; Troponin I 1.538 ng/mL (< 0.028)
[2018-09-08] MEDS ORDERED: diphenhydrAMINE 50 MG/ML VIAL IVP SCH (01:30)
[2018-09-08] MEDS ORDERED: Lorazepam 2 MG/ML VIAL SLOW IVP SCH (02:45)
[2018-09-08] MEDS ORDERED: Ondansetron ODT 4 MG TAB PO PRN (02:51)
[2018-09-08] MEDS ORDERED: Ondansetron PF 4 MG/2 ML Vial IVP PRN (02:51)
[2018-09-08] MEDS ORDERED: Acetaminophen 650 MG Suppository PR PRN (02:51)
[2018-09-08 05:12] LABS: Anion Gap 12 mmol/L (10-20); BUN (Urea Nitrogen) 19 mg/dL (9.8-20.1); Calc. Creatinine Clearance 34 mL/min (70-130); Calcium 10.4 mg/dL (7.8-10.44); Carbon Dioxide 25 mmol/L (23-31); Chloride 106 mmol/L (98-107); Estimated GFR-MDRD 71; Glucose 167 mg/dL (83-110); Potassium 4.6 mmol/L (3.5-5.1); Sodium 138 mmol/L (136-145)
[2018-09-08 05:51] LABS: #Lymphocytes 0.3 thou/uL (1.20-3.40); #Monocytes 0.1 thou/uL (0.11-0.59); #Neutrophils 3.1 thou/uL (1.40-6.50); %Eosinophils 0.3 % (0.0-10.0); %Lymphocytes 8.9 % (21.0-51.0); %Monocytes 2.8 % (0.0-10.0); Hemoglobin 11.8 g/dL (12.0-16.0); Mean Corpuscular HGB CONC 31.4 g/dL (32.0-36.0); Mean Corpuscular Hemoglobin 29.8 pg (27.0-31.0); Mean Platelet Volume 10.1 fL (7.4-10.4); Platelet Morphology Comment PLT clumps seen-ADEQ; Red Blood Cell (RBC) Count 3.95 mill/uL (4.20-5.40); White Blood Cell (WBC) Count 3.5 thou/uL (4.8-10.8)
--- NOTE | 2018-09-08 05:57 | HP ---
PRIMARY CARE PHYSICIAN: Jaylon Beckwith MD CODE STATUS: Full code. TIME OF EVALUATION: 2:00 a.m. CHIEF COMPLAINT: Shortness of breath. HISTORY OF PRESENT ILLNESS: This is an 88-year-old female patient. The patient has dementia. The patient is a very poor historian, unable to gather full information of this patient. The patient came to the hospital after having severe gradually worsening shortness of breath with no clear triggers, no alleviating factors. The symptoms have been present for the past few days. The patient was found to have troponin of 2.0, and therefore diagnosed with non-STEMI, is being treated for and we will consult Cardiology. REVIEW OF SYSTEMS: The patient has dementia, so unable to gather this information. PAST MEDICAL HISTORY: Dementia, arrhythmia, atrial fibrillation, COPD, asthma, hypertension, history of PE, osteoporosis, insomnia, NC. SURGICAL HISTORY: Hysterectomy, hip surgery, right hip fracture. PSYCHIATRIC HISTORY: Dementia. FAMILY HISTORY: Reviewed, noncontributory to current presentation SOCIAL HISTORY: No alcohol. No drugs. No smoking history. KNOWN ALLERGIES: No known drug allergies. REPORTED MEDICATIONS: 1. Albuterol. 2. Prednisone. PHYSICAL EXAMINATION: VITAL SIGNS: On presentation, blood pressure 144/72 with heart rate 94, respiratory rate was 20, temperature 98.3, oxygen saturation 94% on 2 L. GENERAL APPEARANCE: The patient is alert, disoriented, in mild distress due to the patient unable to understand why she is in the hospital due to dementia. HEENT: Eyes, normal conjunctivae. Moist oral mucosa. Anicteric. No JVD. RESPIRATORY: Bilateral air entry. No rales. No wheezes. Symmetric expansion. CARDIOVASCULAR: Normal rate, regular rhythm. No murmurs. No gallop. No edema. ABDOMEN: Soft. Normal bowel sounds. MUSCULOSKELETAL: Baseline range of motion and strength. SKIN: Warm, intact. No pallor. No rash. No redness. Capillary refill seems to be intact. NEUROLOGIC: The patient has dementia, unable to fully explore. No evidence of any acute focal deficits. PSYCHIATRIC: The patient has dementia. The patient is agitated. IMAGING STUDIES: EKG, the patient has atrial fibrillation with controlled ventricular response at the rate of 91, no change from previous visit. Septal infarct, age undetermined. Chest x-ray, the patient has cardiomegaly with right-sided pleural effusion, and right lower lobe parenchymal change probably related to associated infiltrate, although could be the basis of atelectasis. There is also some increased markings in the right mid lung field. LABORATORY DATA: Labs were reviewed. The patient has white count 7.5, hemoglobin 11.4, MCV 94.9, platelet count 162. Chemistry; sodium 138, potassium 4.2, chloride 105, carbon dioxide 26, anion gap 11, BUN 26, creatinine 0.82, GFR 66, glucose 105, calcium 10.2, total bilirubin 0.4, AST 39, ALT 41, alkaline phosphatase 68. Troponin 2.0, second one 1.7, third one 1.5. Beta-natriuretic peptide 1349. Serum total protein 6.4, albumin 3.7, globulin 2.7, albumin globulin ratio is 1.4. ASSESSMENT AND PLAN: The patient will be placed in the hospital with following medical problems: 1. [id number] myocardial infarction. The patient has troponin of 2. The patient has received Lovenox. The patient is on Lovenox, aspirin, lisinopril, metoprolol, simvastatin, we will do echo in the morning. 2. Possible pneumonia seen on the chest x-ray. The patient has been started on Levaquin, we will continue with cefepime given history of being a long term resident. We will follow cultures, we will adjust treatment as per sensitivity. 3. Dementia. The patient will need support as inpatient. Hopefully, family can stay with the patient, so she becomes less agitated. 4. Agitation secondary to dementia. The patient would like to go home. As mentioned above, with the ideology of family here, otherwise we will treat with medication to keep the patient in a better state. 5. History of chronic obstructive pulmonary disease that might be playing some role in the current presentation. The patient is getting DuoNebs, antibiotics. We will hold on steroids for now given underlying myocardial infarction. If needed, we will give it. 6. History of atrial fibrillation, rate is controlled. Reconcile home medications. Monitor on tele. 7. Uncontrolled hypertension with blood pressure on presentation of 144, reconcile home medications. Treat accordingly. 8. Coronary artery disease. The patient has acute myocardial infarction. See treatment above. 9. Deep venous thrombosis prophylaxis. Job ID: [id number] [facility]
[2018-09-08] MEDS: Cefepime 2 GM in Sodium Chloride 0.9% 100 ML IVPB SCH ×2 (06:08→17:36)
[2018-09-08] MEDS ORDERED: Enoxaparin Sodium 40 MG/0.4 ML SYRINGE SC SCH (09:00)
[2018-09-08] MEDS: Metoprolol Tartrate 25 MG TAB PO SCH ×2 (09:37→19:53)
[2018-09-08] MEDS: Lisinopril 5 MG TAB PO SCH (09:37)
[2018-09-08] MEDS: Aspirin 325 mg Enteric Coated Tablet PO SCH (09:38)
[2018-09-08] MEDS ORDERED: Furosemide 20 MG/2 ML VIAL SLOW IVP SCH (13:45)
[2018-09-08] MEDS ORDERED: Sodium Chloride 0.9% 10 ML ONE ×2 (14:38→16:16)
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
--- NOTE | 2018-09-08 19:32 | PRG ---
DATE OF SERVICE: 09/08/2018 SUBJECTIVE: The patient is an 88-year-old female with dementia, atrial fibrillation, hypertension, and coronary artery disease presented to the hospital with shortness of breath. A chest x-ray on admission showed cardiomegaly with right-sided pleural effusion and right lower lobe parenchymal changes, probably related to associated infiltrate versus atelectasis. She was started on IV cefepime. She was found to have elevated troponin with maximum troponin of 2.01 with elevated CK-MB. She denies any chest discomfort at this time. No nausea, vomiting reported. She has some dry cough. MEDICATIONS: Current medications were reviewed. The patient is on aspirin with Lovenox for DVT prophylaxis along with other medications. OBJECTIVE: VITAL SIGNS: Temperature 96.9, pulse of 73, blood pressure 152/77, respiration of 17, O2 saturation 98% on room air. Intake of 100, output 100. Weight of 93 pounds. GENERAL: An 88-year-old female in no apparent distress. LUNGS: Showed diminished air entry at bilateral bases with bibasilar rales. There was scattered rhonchi. No wheezing. HEART: S1, S2 present. Regular rate and rhythm 2/6 systolic murmur over the mitral area. No rubs or gallops. ABDOMEN: Soft, nontender. No guarding or rigidity. No costovertebral angle tenderness. EXTREMITIES: Trace edema in bilateral lower extremity. No calf tenderness. NEUROLOGY: The patient is moving all of her extremities on verbal command. PSYCHIATRY: The patient has baseline dementia. DIAGNOSTIC DATA: Telemetry monitoring by my review showed sinus rhythm. LABORATORY FINDINGS: WBC 3.5, hemoglobin 11.8, hematocrit 37.5, platelet of 162. Chemistry showed sodium 138, potassium 4.6, chloride 106, bicarb 25, BUN 19, creatinine 0.7, magnesium 2.0. Troponin 2.0 with CK-MB 8.2. Blood cultures were not sent. Chest x-ray by my review as discussed above. EKG by my review as discussed above. IMPRESSION: 1. Shortness of breath secondary to healthcare-associated pneumonia with congestive heart failure exacerbation. 2. Congestive heart failure exacerbation, suspected diastolic type. 3. Elevated troponin probably secondary to demand ischemia/type 2 myocardial infarction. 4. Coronary artery disease, status post stent placement. 5. Former smoker. 6. Chronic obstructive pulmonary disease with chronic obstructive pulmonary disease exacerbation. 7. History of pulmonary embolism. 8. Dementia. 9. Deconditioning. 10. Do not resuscitate. PLAN: IV cefepime will be continued. We will add oral doxycycline. Reduce Lovenox to 30 mg daily. Continue aspirin. Echocardiogram will be obtained. We will give her one dose of IV Lasix. Recheck chest x-ray in a.m. Repeat labs in a.m. including TSH. Physical Therapy, Occupational Therapy consultation. We will also consult Speech Therapy for possible aspiration pneumonia. Plan was discussed with the patient. We will discuss the plan of care with the family when they arrive. Job ID: [id number]
[2018-09-08] MEDS: Doxycycline 100 MG CAP PO SCH (19:53)
[2018-09-08] MEDS: Simvastatin 40 MG TAB PO SCH (19:54)
[2018-09-08] MEDS ORDERED: ALPRAZolam 0.25 MG TAB PO SCH (21:45)
[2018-09-09] MEDS: Cefepime 2 GM in Sodium Chloride 0.9% 100 ML IVPB SCH ×2 (04:37→17:01)
[2018-09-09] MEDS: Acetaminophen 325 MG TAB PO PRN (04:40)
[2018-09-09 07:30] LABS: #Lymphocytes 0.7 thou/uL (1.20-3.40); #Monocytes 0.7 thou/uL (0.11-0.59); %Basophils 0.3 % (0.0-1.0); %Eosinophils 0.1 % (0.0-10.0); %Lymphocytes 7.3 % (21.0-51.0); %Monocytes 7.4 % (0.0-10.0); %Neutrophils 84.9 % (42.0-75.0); Mean Corpuscular HGB CONC 31.7 g/dL (32.0-36.0); Mean Corpuscular Hemoglobin 30.3 pg (27.0-31.0); Mean Corpuscular Volume 95.4 fL (78.0-98.0); Mean Platelet Volume 8.9 fL (7.4-10.4); Platelet Count 170 thou/uL (130-400); RBC Distribution Width 12.9 % (11.5-14.5); Red Blood Cell (RBC) Count 3.62 mill/uL (4.20-5.40); White Blood Cell (WBC) Count 9.5 thou/uL (4.8-10.8)
[2018-09-09 07:54] LABS: ALT (SGPT) 30 U/L (8-55); AST (SGOT) 18 U/L (5-34); Albumin 3.6 g/dL (3.4-4.8); Alkaline Phosphatase 59 U/L (40-150); Anion Gap 8 mmol/L (10-20); BUN (Urea Nitrogen) 25 mg/dL (9.8-20.1); Bilirubin, Total 0.3 mg/dL (0.2-1.2); CRP (Inflammatory) 0.91 mg/dL (= or < 0.5); Calc. Creatinine Clearance 31 mL/min (70-130); Calcium 9.9 mg/dL (7.8-10.44); Carbon Dioxide 31 mmol/L (23-31); Chloride 102 mmol/L (98-107); Estimated GFR-MDRD 63; Globulin 2.7 g/dL (2.4-3.5); Glucose 133 mg/dL (83-110); Magnesium 2.1 mg/dL (1.6-2.6); Phosphorus 2.9 mg/dL (2.3-4.7); Potassium 4.7 mmol/L (3.5-5.1); Protein, Total 6.3 g/dL (6.0-8.3); Sodium 136 mmol/L (136-145)
[2018-09-09] MEDS ORDERED: Carvedilol 3.125 MG TAB PO SCH (08:15)
[2018-09-09] MEDS: Aspirin 325 mg Enteric Coated Tablet PO SCH (09:00)
[2018-09-09] MEDS: Enoxaparin Sodium 30 MG/0.3 ML SYRINGE SC SCH (09:00)
[2018-09-09] MEDS: Doxycycline 100 MG CAP PO SCH ×2 (09:00→20:15)
[2018-09-09] MEDS: Saccharomyces boulardii 250 MG CAP PO SCH (09:01)
[2018-09-09] MEDS: Lisinopril 5 MG TAB PO SCH (09:01)
--- NOTE | 2018-09-09 10:16 | RAD ---
XR Chest 1 View Portable HISTORY: Shortness of breath COMPARISON: 09/07/2018 study. FINDINGS: The heart size is enlarged. There are persistent pleural and parenchymal changes in the rig ht base. Pleural changes have improved. The left lung remains clear. IMPRESSION: Cardiomegaly with decreased right-sided pleural effusion and improving right lower lobe p arenchymal changes.
[2018-09-09] MEDS: Lorazepam 0.5 MG TAB PO PRN (13:53)
--- NOTE | 2018-09-09 15:15 | PDOC.PN ---
- Subjective Encounter Start Date: 09/09/18 Encounter Start Time: 09:00 Patient seen and examined for Resp distress. Confused at baseline. Appears comfortable. Agitated at times per RN. No new complaints. No overnight events - Objective Resuscitation Status - Order Detail: 09/08/18 11:00 Resuscitation Status Routine Resuscitation Status: DNAR: NO Resuscitation Discussed with: RN confirmed with the son BEATRICE Reviewed: Yes Vital Signs & Weight: Vital Signs (12 hours) Temp Pulse Resp BP Pulse Ox 09/09/18 13:54 101 H 16 09/09/18 11:02 97.5 F L 77 16 113/65 98 09/09/18 07:10 97.8 F 73 16 118/65 95 09/09/18 04:00 97.3 F L 82 20 138/69 97 Weight Weight 93 lb 4.8 oz I&O: 09/08/18 09/09/18 09/10/18 06:59 06:59 06:59 Intake Total 100 1140 Output Total 100 800 Balance 0 340 Result Diagrams: 09/10/18 04:24 09/10/18 04:24 Radiology Reviewed by me: Yes (CXR - improvement) EKG Reviewed by me: Yes (Tele SR) Phys Exam - Physical Examination Constitutional: NAD Respiratory: no wheezing Bibasilar rhonchi Cardiovascular: RRR, no rub Gastrointestinal: soft, non-tender, positive bowel sounds Musculoskeletal: edema present (trace) Neurological: moves all 4 limbs Dx/Plan - Plan DVT proph w/SCDs IMPRESSION: 1. SOB due to Aspiration pneumonia/Acute sytolic HF exacerbation - ACC stage C 2. TR/AR/MR 3. Elevated troponin probably secondary to demand ischemia/type 2 myocardial infarction. 4. Coronary artery disease, status post stent placement. 5. Rt Pleural effusion due to CHF 6. COPD exacerbation. 7. History of pulmonary embolism. 8. Dementia. 9. Deconditioning. 10. Do not resuscitate. 11. Swallow dysfunction. 12. Former smoker. PLAN: Cont IV cefepime with oral doxycycline. Add Coreg/Lisinopril Continue aspirin. Echocardiogram reviewed Gentle diuresis Cont fluid restriction AM labs Review of Systems - Medications/Allergies Allergies/Adverse Reactions: Allergies Allergy/AdvReac Type Severity Reaction Status Date / Time No Known Drug Allergies Allergy Verified 05/28/18 23:39 Medications: Current Medications Acetaminophen (Tylenol) 650 mg PO Q4H PRN PRN Reason: Headache/Fever/Mild Pain (1-3) Last Admin: 09/09/18 04:40 Dose: 650 mg Acetaminophen (Tylenol) 650 mg MI Q4H PRN PRN Reason: Headache/Fever/Mild Pain (1-3) Albuterol/Ipratropium (Duoneb) 3 ml NEB [id number] SCH Last Admin: 09/09/18 13:54 Dose: 3 ml Albuterol/Ipratropium (Duoneb) 3 ml NEB [id number] PRN PRN Reason: SOB &/or Wheezing Aspirin (Ecotrin) 325 mg PO DAILY COUNT INCLUDES THE [facility] Last Admin: 09/09/18 09:00 Dose: 325 mg Carvedilol (Coreg) 3.125 mg PO BID-[facility] Doxycycline Hyclate (Vibramycin) 100 mg PO BID COUNT INCLUDES THE [facility] Last Admin: 09/09/18 09:00 Dose: 100 mg Enoxaparin Sodium (Lovenox) 30 mg SC 0900 COUNT INCLUDES THE [facility] Last Admin: 09/09/18 09:00 Dose: 30 mg Cefepime HCl 2 gm/ Sodium (Chloride) 100 mls @ 200 mls/hr IVPB 0600,1800 COUNT INCLUDES THE [facility] Last Admin: 09/09/18 04:37 Dose: 100 mls Lisinopril (Zestril) 5 mg PO DAILY COUNT INCLUDES THE [facility] Last Admin: 09/09/18 09:01 Dose: 5 mg Lorazepam (Ativan) 0.5 mg PO Q6H PRN PRN Reason: Agitation Last Admin: 09/09/18 13:53 Dose: 0.5 mg Ondansetron HCl (Zofran Odt) 4 mg PO Q6H PRN PRN Reason: Nausea/Vomiting Ondansetron HCl (Zofran) 4 mg IVP Q6H PRN PRN Reason: Nausea/Vomiting Saccharomyces Boulardii (Florastor) 250 mg PO DAILY COUNT INCLUDES THE [facility] Last Admin: 09/09/18 09:01 Dose: 250 mg Simvastatin (Zocor) 40 mg PO HS COUNT INCLUDES THE [facility] Last Admin: 09/08/18 19:54 Dose: 40 mg
[2018-09-09] MEDS: Carvedilol 3.125 MG TAB PO SCH (17:01)
[2018-09-09] MEDS: Simvastatin 40 MG TAB PO SCH (20:15)
[2018-09-10] MEDS: Lorazepam 0.5 MG TAB PO PRN ×2 (01:57→16:54)
[2018-09-10 04:45] LABS: #Eosinphils 0.1 thou/uL (0.0-0.7); #Lymphocytes 1.5 thou/uL (1.20-3.40); #Monocytes 0.6 thou/uL (0.11-0.59); #Neutrophils 4.4 thou/uL (1.40-6.50); %Basophils 0.3 % (0.0-1.0); %Eosinophils 1.5 % (0.0-10.0); %Lymphocytes 22.8 % (21.0-51.0); %Monocytes 8.4 % (0.0-10.0); Hemoglobin 9.8 g/dL (12.0-16.0); Mean Corpuscular HGB CONC 30.7 g/dL (32.0-36.0); Mean Corpuscular Hemoglobin 29.7 pg (27.0-31.0); Mean Corpuscular Volume 96.8 fL (78.0-98.0); Mean Platelet Volume 9.3 fL (7.4-10.4); Platelet Count 159 thou/uL (130-400); RBC Distribution Width 12.9 % (11.5-14.5); White Blood Cell (WBC) Count 6.6 thou/uL (4.8-10.8)
[2018-09-10 05:10] LABS: ALT (SGPT) 25 U/L (8-55); AST (SGOT) 15 U/L (5-34); Albumin 3.1 g/dL (3.4-4.8); Alkaline Phosphatase 52 U/L (40-150); Anion Gap 7 mmol/L (10-20); BUN (Urea Nitrogen) 29 mg/dL (9.8-20.1); Bilirubin, Total 0.3 mg/dL (0.2-1.2); Calc. Creatinine Clearance 33 mL/min (70-130); Calcium 9.3 mg/dL (7.8-10.44); Carbon Dioxide 31 mmol/L (23-31); Chloride 104 mmol/L (98-107); Estimated GFR-MDRD 67; Globulin 2.3 g/dL (2.4-3.5); Glucose 122 mg/dL (83-110); Magnesium 1.9 mg/dL (1.6-2.6); Potassium 4.2 mmol/L (3.5-5.1); Protein, Total 5.4 g/dL (6.0-8.3); Sodium 138 mmol/L (136-145)
[2018-09-10] MEDS: Cefepime 2 GM in Sodium Chloride 0.9% 100 ML IVPB SCH ×2 (05:38→18:09)
[2018-09-10] MEDS: K-Phos Neutral 250 MG TAB PO SCH ×3 (08:17→16:53)
[2018-09-10] MEDS: Carvedilol 3.125 MG TAB PO SCH ×2 (08:17→16:54)
[2018-09-10] MEDS: Furosemide 20 MG TAB PO SCH (08:19)
[2018-09-10] MEDS: Enoxaparin Sodium 30 MG/0.3 ML SYRINGE SC SCH (08:19)
[2018-09-10] MEDS: Doxycycline 100 MG CAP PO SCH ×2 (08:19→20:15)
[2018-09-10] MEDS: Aspirin 325 mg Enteric Coated Tablet PO SCH (08:19)
[2018-09-10] MEDS: Saccharomyces boulardii 250 MG CAP PO SCH (08:20)
[2018-09-10] MEDS: Lisinopril 5 MG TAB PO SCH (08:20)
[2018-09-10] MEDS: Simvastatin 40 MG TAB PO SCH (20:15)
--- NOTE | 2018-09-10 22:04 | PDOC.PN ---
- Subjective Encounter Start Date: 09/10/18 Encounter Start Time: 17:00 Patient seen and examined for Pneumonia. Confused. No overnight events - Objective Resuscitation Status - Order Detail: 09/08/18 11:00 Resuscitation Status Routine Resuscitation Status: DNAR: NO Resuscitation Discussed with: RN confirmed with the son BEATRICE Reviewed: Yes Vital Signs & Weight: Vital Signs (12 hours) Temp Pulse Pulse Pulse Resp BP BP 09/10/18 20:00 97 F L 88 18 09/10/18 19:55 09/10/18 18:28 97 16 09/10/18 15:41 97.7 F 100 17 09/10/18 14:51 75 20 09/10/18 13:07 90 93 135/77 132/69 09/10/18 11:09 97.6 F 104 H 16 09/10/18 10:25 107 H 20 BP Pulse Ox 09/10/18 20:00 145/72 H 95 09/10/18 19:55 95 09/10/18 18:28 97 09/10/18 15:41 130/78 93 L 09/10/18 14:51 96 09/10/18 13:07 09/10/18 11:09 118/66 96 09/10/18 10:25 90 L Weight Admit Weight 93 lb 4.8 oz Weight 93 lb 4.8 oz I&O: 09/09/18 09/10/18 09/11/18 06:59 06:59 06:59 Intake Total 1140 1420 600 Output Total 800 450 800 Balance 340 970 -200 Result Diagrams: 09/11/18 04:43 09/11/18 04:43 Phys Exam - Physical Examination Constitutional: NAD Respiratory: no wheezing, no rhonchi Bibasilar rales Cardiovascular: RRR, no rub Gastrointestinal: soft, non-tender, positive bowel sounds Neurological: moves all 4 limbs Dx/Plan - Plan DVT proph w/SCDs IMPRESSION: 1. SOB due to Aspiration pneumonia/Acute sytolic HF exacerbation - ACC stage C 2. TR/AR/MR 3. Elevated troponin probably secondary to demand ischemia/type 2 [place] 4. CAD s/p stent 5. Rt Pleural effusion due to CHF 6. COPD exacerbation. 7. History of pulmonary embolism. 8. Dementia. 9. Deconditioning. 10. DNR. 11. Swallow dysfunction. 12. Former smoker. PLAN: Cont IV cefepime Cont PO doxycycline. Started on Coreg/Lisinopril/PO Lasix Cont other meds as below Consult Palliative care for Goals of care No family at bedside AM labs Review of Systems - Review of Systems Other: Cannot obtain due to current mentation. - Medications/Allergies Allergies/Adverse Reactions: Allergies Allergy/AdvReac Type Severity Reaction Status Date / Time No Known Drug Allergies Allergy Verified 05/28/18 23:39 Medications: Current Medications Acetaminophen (Tylenol) 650 mg PO Q4H PRN PRN Reason: Headache/Fever/Mild Pain (1-3) Last Admin: 09/09/18 04:40 Dose: 650 mg Acetaminophen (Tylenol) 650 mg DE Q4H PRN PRN Reason: Headache/Fever/Mild Pain (1-3) Albuterol/Ipratropium (Duoneb) 3 ml NEB [id number] SCH Last Admin: 09/10/18 18:28 Dose: 3 ml Albuterol/Ipratropium (Duoneb) 3 ml NEB [id number] PRN PRN Reason: SOB &/or Wheezing Last Admin: 09/10/18 00:45 Dose: 3 ml Aspirin (Ecotrin) 325 mg PO DAILY [facility] Last Admin: 09/10/18 08:19 Dose: 325 mg Carvedilol (Coreg) 3.125 mg PO BID-[facility] Last Admin: 09/10/18 16:54 Dose: 3.125 mg Doxycycline Hyclate (Vibramycin) 100 mg PO BID [facility] Last Admin: 09/10/18 20:15 Dose: 100 mg Enoxaparin Sodium (Lovenox) 30 mg SC 0900 [facility] Last Admin: 09/10/18 08:19 Dose: 30 mg Furosemide (Lasix) 20 mg PO DAILY [facility] Last Admin: 09/10/18 08:19 Dose: 20 mg Cefepime HCl 2 gm/ Sodium (Chloride) 100 mls @ 200 mls/hr IVPB 0600,1800 [facility] Last Admin: 09/10/18 18:09 Dose: 100 mls Lisinopril (Zestril) 5 mg PO DAILY [facility] Last Admin: 09/10/18 08:20 Dose: 5 mg Lorazepam (Ativan) 0.5 mg PO Q6H PRN PRN Reason: Agitation Last Admin: 09/10/18 16:54 Dose: 0.5 mg Ondansetron HCl (Zofran Odt) 4 mg PO Q6H PRN PRN Reason: Nausea/Vomiting Ondansetron HCl (Zofran) 4 mg IVP Q6H PRN PRN Reason: Nausea/Vomiting Phosphorus (Kphos Neutral) 250 mg PO TID-[facility] Last Admin: 09/10/18 16:53 Dose: 250 mg Saccharomyces Boulardii (Florastor) 250 mg PO DAILY [facility] Last Admin: 09/10/18 08:20 Dose: 250 mg Simvastatin (Zocor) 40 mg PO [facility] Last Admin: 09/10/18 20:15 Dose: 40 mg
[2018-09-11] MEDS: Acetaminophen 325 MG TAB PO PRN ×2 (00:17→03:54)
[2018-09-11 05:32] LABS: Hemoglobin 11.1 g/dL (12.0-16.0); Platelet Count 194 thou/uL (130-400)
[2018-09-11] MEDS: Cefepime 2 GM in Sodium Chloride 0.9% 100 ML IVPB SCH ×2 (05:43→18:47)
[2018-09-11 05:57] LABS: Albumin 3.2 g/dL (3.4-4.8); Anion Gap 9 mmol/L (10-20); BUN (Urea Nitrogen) 21 mg/dL (9.8-20.1); BUN/Creatinine Ratio 29.17; Calc. Creatinine Clearance 37 mL/min (70-130); Calcium 9.5 mg/dL (7.8-10.44); Carbon Dioxide 32 mmol/L (23-31); Chloride 104 mmol/L (98-107); Estimated GFR-MDRD 77; Glucose 86 mg/dL (83-110); Phosphorus 3.2 mg/dL (2.3-4.7); Potassium 3.7 mmol/L (3.5-5.1); Sodium 141 mmol/L (136-145)
[2018-09-11] MEDS ORDERED: Carvedilol 6.25 MG TAB PO SCH (08:45)
[2018-09-11] MEDS: K-Phos Neutral 250 MG TAB PO SCH ×3 (08:55→18:46)
[2018-09-11] MEDS: Lisinopril 5 MG TAB PO SCH (08:55)
[2018-09-11] MEDS: Furosemide 20 MG TAB PO SCH (08:55)
[2018-09-11] MEDS: Aspirin 325 mg Enteric Coated Tablet PO SCH (08:55)
[2018-09-11] MEDS: Saccharomyces boulardii 250 MG CAP PO SCH (08:55)
[2018-09-11] MEDS: Doxycycline 100 MG CAP PO SCH ×2 (08:55→20:30)
[2018-09-11] MEDS: Enoxaparin Sodium 30 MG/0.3 ML SYRINGE SC SCH (08:56)
[2018-09-11] MEDS: Carvedilol 3.125 MG TAB PO SCH (09:06)
--- NOTE | 2018-09-11 13:29 | PDOC.PALCO ---
Palliative Care Consult - Consult Details Requesting Physician: Dr Rubi Reason for Consult: goals of care, complex decision-making - Pertinent HPI Ms Ryan is a 88 year old female with presented to emergency room with increase in shortness of breath, which did not respond to interventions. Evaluation in emergency room identified a non-stemi, admitted. Patient with dementia and is a poor historian. Previous hospice admission from which patient was discharged from and admitted to home health. Secondary to decline Dr Rubi has requested assistance with goals of care with patient and family. Patient alert for assessment, requesting a sandwich. - Pertinent PMH Dementia, arrhythmia, atrial fibrillation, COPD, asthma, hypertension, history of PE, osteoprosis, insomnia, SD. - Social History Smoking Status: Never smoker Smoking: no tobacco exposure Alcohol Use: none Drug Use History: none - Medications MAR Reviewed: Yes - Allergies Allergies/Adverse Reactions: Allergies Allergy/AdvReac Type Severity Reaction Status Date / Time No Known Drug Allergies Allergy Verified 05/28/18 23:39 - Objective Vital Signs: Vital Signs - Most Recent Temp Pulse Resp BP Pulse Ox 96.7 F L 107 H 16 148/76 H 90 L 09/11/18 07:56 09/11/18 13:20 09/11/18 10:22 09/11/18 13:20 09/11/18 13:16 Palliative Performance Scale: 30 - Physical Exam Constitutional: confusion Deviation from normal: cachetic HEENT: moist MMs, EOMI Deviation from normal: mildly labored respirations Cardiovascular: irregular Gastrointestinal: soft, non-tender, positive bowel sounds Musculoskeletal: no edema Deviation from normal: poor memory recall Skin: cap refill <2 seconds - Problem List (1) Palliative care encounter Code(s): Z51.5 - ENCOUNTER FOR PALLIATIVE CARE Current Visit: Yes Status: Acute (2) Dementia Code(s): F03.90 - UNSPECIFIED DEMENTIA WITHOUT BEHAVIORAL DISTURBANCE Current Visit: No Status: Chronic Qualifiers: Dementia type: unspecified type Dementia behavioral disturbance: without behavioral disturbance Qualified Code(s): F03.90 - Unspecified dementia without behavioral disturbance - Plan/Recommendations Plan: *Comfort foods *Communicate with patient yeimi Bo in relation to disease trajectory related to cardiac, pulmonary disease and dementia. *Hospice consult if yeimi Bo is agreeable *Patient previous hospice patient / currently on Home Health with [facility]. [60] minutes spent on this encounter with >50% of the time in counseling and coordination of care. Thank you for this very appropriate consult.
[2018-09-11] MEDS: Carvedilol 6.25 MG TAB PO SCH (18:47)
[2018-09-11] MEDS: Simvastatin 40 MG TAB PO SCH (20:30)
[2018-09-11] MEDS: Lorazepam 0.5 MG TAB PO PRN (22:05)
--- NOTE | 2018-09-11 22:43 | PDOC.HOSPP ---
- Subjective Subjective: Patient seen and examined for CHF/Aspiration Pneumonia. Sitter at bedside. Remains confused. No new complaints. No overnight events - Objective Vital Signs & Weight: Vital Signs (12 hours) Temp Pulse Pulse Pulse Resp BP BP 09/11/18 18:43 104 H 20 09/11/18 17:45 98.1 F 113 H 16 09/11/18 14:53 85 16 09/11/18 13:20 107 H 09/11/18 13:16 09/11/18 12:32 09/11/18 10:45 09/11/18 10:44 109 H 111 H 173/82 H 172/87 H BP Pulse Ox 09/11/18 18:43 94 L 09/11/18 17:45 143/69 H 99 09/11/18 14:53 91 L 09/11/18 13:20 148/76 H 09/11/18 13:16 90 L 09/11/18 12:32 94 L 09/11/18 10:45 93 L 09/11/18 10:44 Weight Admit Weight 93 lb 4.8 oz Weight 93 lb 4.8 oz I&O: 09/10/18 09/11/18 09/12/18 06:59 06:59 06:59 Intake Total 1420 1240 Output Total 450 1300 750 Balance 970 -60 -750 Result Diagrams: 09/11/18 04:43 09/11/18 04:43 EKG Reviewed by me: Yes (Tele SR) ROS - Review of Systems ROS unobtainable: due to mental status All systems: All other ROS were reviewed and found negative. - Medication Medications: Active Medications Generic Name Dose Route Start Last Admin Trade Name Freq PRN Reason Stop Dose Admin Acetaminophen 650 mg 09/08/18 02:51 09/11/18 03:54 Tylenol PO 650 mg Q4H PRN Administration Headache/Fever/Mild Pain (1-3) Albuterol/Ipratropium 3 ml 09/09/18 15:00 09/11/18 18:43 Duoneb NEB 3 ml [id number] ARMANDO Administration Albuterol/Ipratropium 3 ml 09/09/18 11:40 09/10/18 00:45 Duoneb NEB 3 ml [id number] PRN Administration SOB &/or Wheezing Aspirin 325 mg 09/08/18 09:00 09/11/18 08:55 Ecotrin PO 325 mg DAILY ARMANDO Administration Carvedilol 6.25 mg 09/11/18 17:00 09/11/18 18:47 Coreg PO 6.25 mg BID-WM ARMANDO Administration Doxycycline Hyclate 100 mg 09/08/18 21:00 09/11/18 20:30 Vibramycin PO 100 mg BID ARMANDO Administration Enoxaparin Sodium 30 mg 09/09/18 09:00 09/11/18 08:56 Lovenox SC 30 mg 0900 ARMANDO Administration Furosemide 20 mg 09/10/18 09:00 09/11/18 08:55 Lasix PO 20 mg DAILY ARMANDO Administration Cefepime HCl 2 gm/ Sodium 100 mls @ 200 mls/hr 09/08/18 06:00 09/11/18 18:47 Chloride IVPB 100 mls 0600,1800 ARMANDO Administration Lisinopril 5 mg 09/08/18 09:00 09/11/18 08:55 Zestril PO 5 mg DAILY ARM[facility]O Administration Lorazepam 0.5 mg 09/09/18 13:49 09/10/18 16:54 Ativan PO 0.5 mg Q6H PRN Administration Agitation Phosphorus 250 mg 09/10/18 08:00 09/11/18 18:46 Kphos Neutral PO 250 mg TID-WM ARMANDO Administration Saccharomyces Boulardii 250 mg 09/09/18 09:00 09/11/18 08:55 Florastor PO 250 mg DAILY ARMANDO Administration Simvastatin 40 mg 09/08/18 21:00 09/11/18 20:30 Zocor PO 40 mg HS ARMANDO Administration - Exam NAD (confused) Heart: RRR Respiratory: CTAB, rales (at bases) Gastrointestinal: soft, non-tender, normal bowel sounds Neurological: no new deficit Psychiatric: not oriented Hosp A/P - Plan Consults: Palliative Care IMPRESSION: 1. SOB due to Aspiration pneumonia/Acute sytolic HF exacerbation - ACC stage C 2. TR/AR/MR 3. Elevated troponin probably secondary to demand ischemia/type 2 [place] 4. CAD s/p stent 5. Rt Pleural effusion due to CHF - improving with diuresis 6. COPD exacerbation. 7. SVT 8. Dementia. 9. Deconditioning. 10. DNR. 11. Swallow dysfunction. 12. Former smoker. 13. History of pulmonary embolism. 14. DNR PLAN: Change IV Atbx to PO Cont Lisinopril/PO Lasix Coreg dose increased due to SVT Cont other meds as below Palliative care following for Hospice Eval AM labs DC in 1-2 days if ok with Cardiology Approved for SNF
[2018-09-12 05:14] LABS: Anion Gap 10 mmol/L (10-20); BUN (Urea Nitrogen) 14 mg/dL (9.8-20.1); Calc. Creatinine Clearance 41 mL/min (70-130); Calcium 9.5 mg/dL (7.8-10.44); Carbon Dioxide 33 mmol/L (23-31); Chloride 101 mmol/L (98-107); Estimated GFR-MDRD 86; Glucose 93 mg/dL (83-110); Potassium 3.4 mmol/L (3.5-5.1); Sodium 141 mmol/L (136-145)
[2018-09-12] MEDS: K-Phos Neutral 250 MG TAB PO SCH ×3 (08:00→20:05)
[2018-09-12] MEDS ORDERED: Enoxaparin Sodium 40 MG/0.4 ML SYRINGE SC SCH (09:00)
[2018-09-12] MEDS: Aspirin 325 mg Enteric Coated Tablet PO SCH (10:35)
[2018-09-12] MEDS: Lisinopril 5 MG TAB PO SCH (10:35)
[2018-09-12] MEDS: Carvedilol 6.25 MG TAB PO SCH ×3 (10:35→17:00)
[2018-09-12] MEDS: Furosemide 20 MG TAB PO SCH (10:35)
[2018-09-12] MEDS: Saccharomyces boulardii 250 MG CAP PO SCH (10:36)
[2018-09-12] MEDS: Enoxaparin Sodium 30 MG/0.3 ML SYRINGE SC SCH (10:38)
[2018-09-12] MEDS: Amoxicillin/Potassium Clav 400 mg/5 ml Oral Suspension PO SCH ×2 (13:07→20:16)
[2018-09-12] MEDS: Lorazepam 0.5 MG TAB PO PRN ×2 (17:00→23:48)
--- NOTE | 2018-09-12 19:00 | PDOC.HOSPP ---
- Subjective Subjective: Pt seen for followup re: CHF exacerbation. Pt says she is fine, not answering questions reliably, could not complete ROS. - Objective Vital Signs & Weight: Vital Signs (12 hours) Temp Pulse Resp BP BP Pulse Ox 09/12/18 18:46 112 H 20 94 L 09/12/18 16:52 97.0 F L 105 H 18 148/88 H 93 L 09/12/18 14:43 79 16 91 L 09/12/18 13:06 97.4 F L 108 H 103 H 137/63 95 09/12/18 10:41 58 L 16 92 L 09/12/18 08:00 96.4 F L 110 H 18 168/91 H 94 L 09/12/18 07:12 97 09/12/18 07:09 105 H 20 97 Weight Admit Weight 93 lb 4.8 oz Weight 94 lb 4.8 oz I&O: 09/11/18 09/12/18 09/13/18 06:59 06:59 06:59 Intake Total 1240 360 Output Total 1300 756 Balance -60 -396 Result Diagrams: 09/11/18 04:43 09/12/18 04:34 Additional Labs: Labs and MARs reviewed by me EKG Reviewed by me: Yes (Tele: NSR with PVCs) ROS - Review of Systems All systems: All other ROS were reviewed and found negative. - Medication Medications: Active Medications Generic Name Dose Route Start Last Admin Trade Name Freq PRN Reason Stop Dose Admin Acetaminophen 650 mg 09/08/18 02:51 09/11/18 03:54 Tylenol PO 650 mg Q4H PRN Administration Headache/Fever/Mild Pain (1-3) Albuterol/Ipratropium 3 ml 09/09/18 15:00 09/12/18 18:46 Duoneb NEB 3 ml [id number] ARMANDO Administration Albuterol/Ipratropium 3 ml 09/09/18 11:40 09/10/18 00:45 Duoneb NEB 3 ml [id number] PRN Administration SOB &/or Wheezing Amoxicillin/Clavulanate Potassium 400 mg 09/12/18 09:00 09/12/18 13:07 Augmentin 400mg/5ml Oral Susp PO 400 mg BID ARMANDO Administration Aspirin 325 mg 09/08/18 09:00 09/12/18 10:35 Ecotrin PO 325 mg DAILY [facility] Administration Carvedilol 12.5 mg 09/12/18 08:00 09/12/18 17:00 Coreg PO 12.5 mg BID-WM ARMANDO Administration Enoxaparin Sodium 30 mg 09/12/18 09:00 09/12/18 10:38 Lovenox SC 30 mg 0900 ARMANDO Administration Furosemide 20 mg 09/10/18 09:00 09/12/18 10:35 Lasix PO 20 mg DAILY [facility] Administration Lisinopril 5 mg 09/08/18 09:00 09/12/18 10:35 Zestril PO 5 mg DAILY ARM[facility]O Administration Lorazepam 0.5 mg 09/09/18 13:49 09/12/18 17:00 Ativan PO 0.5 mg Q6H PRN Administration Agitation Phosphorus 250 mg 09/10/18 08:00 09/12/18 13:07 Kphos Neutral PO 250 mg TID-WM ARMANDO Administration Saccharomyces Boulardii 250 mg 09/09/18 09:00 09/12/18 10:36 Florastor PO 250 mg DAILY ARMANDO Administration Simvastatin 40 mg 09/08/18 21:00 09/11/18 20:30 Zocor PO 40 mg HS ARMANDO Administration - Exam NAD Eye: anicteric sclera ENT: normocephalic atraumatic Neck: supple Heart: RRR Respiratory: CTAB Gastrointestinal: soft Neurological: no weakness Psychiatric: normal affect Hosp A/P (1) Acute systolic heart failure, ACC/AHA stage C Code(s): I50.21 - ACUTE SYSTOLIC (CONGESTIVE) HEART FAILURE Status: Acute (2) CAD (coronary artery disease) Code(s): I25.10 - ATHSCL HEART DISEASE OF [place] CORONARY ARTERY W/O ANG PCTRS Status: Chronic (3) CAP (community acquired pneumonia) Code(s): J18.9 - PNEUMONIA, UNSPECIFIED ORGANISM Status: Acute (4) Dementia Code(s): F03.90 - UNSPECIFIED DEMENTIA WITHOUT BEHAVIORAL DISTURBANCE Status: Chronic Qualifiers: Dementia type: unspecified type Dementia behavioral disturbance: without behavioral disturbance Qualified Code(s): F03.90 - Unspecified dementia without behavioral disturbance (5) HTN (hypertension) Code(s): I10 - ESSENTIAL (PRIMARY) HYPERTENSION Status: Chronic Qualifiers: Hypertension type: essential hypertension Qualified Code(s): I10 - Essential (primary) hypertension - Plan continue antibiotics, PT/OT, out of bed/ambulate, DVT proph w/lovenox Acute systolic CHF NYHA Class 3, continue furosemide. Coreg dose increased today for tachycardia, monitor on telemetry. Pt has been approved for SNU bed, likely dc in 24-48 hrs if clinically stable. Continue Augmentin for pneumonia.
[2018-09-12] MEDS: Simvastatin 40 MG TAB PO SCH (20:16)
[2018-09-13] MEDS: Enoxaparin Sodium 30 MG/0.3 ML SYRINGE SC SCH (08:42)
[2018-09-13] MEDS: Amoxicillin/Potassium Clav 400 mg/5 ml Oral Suspension PO SCH ×2 (08:42→21:46)
[2018-09-13] MEDS: Saccharomyces boulardii 250 MG CAP PO SCH (08:43)
[2018-09-13] MEDS: Furosemide 20 MG TAB PO SCH (08:44)
[2018-09-13] MEDS: K-Phos Neutral 250 MG TAB PO SCH ×3 (08:44→16:22)
[2018-09-13] MEDS: Aspirin 325 mg Enteric Coated Tablet PO SCH (08:44)
[2018-09-13] MEDS: Lisinopril 5 MG TAB PO SCH (08:44)
[2018-09-13] MEDS: Carvedilol 6.25 MG TAB PO SCH (08:58)
[2018-09-13] MEDS ORDERED: Carvedilol 25 MG TAB PO SCH (09:00)
[2018-09-13] MEDS: Lorazepam 0.5 MG TAB PO PRN ×3 (10:15→21:45)
[2018-09-13] MEDS: Carvedilol 25 MG TAB PO SCH (16:22)
--- NOTE | 2018-09-13 17:42 | PDOC.HOSPP ---
- Subjective Subjective: Doing ok. Denies complaints. Denies SOB. - Objective Vital Signs & Weight: Vital Signs (12 hours) Temp Pulse Resp BP Pulse Ox 09/13/18 16:00 98.1 F 101 H 18 151/69 H 93 L 09/13/18 14:24 67 20 95 09/13/18 12:00 98.8 F 77 15 126/75 97 09/13/18 10:43 111 H 20 91 L 09/13/18 08:44 107 H 09/13/18 07:31 98.2 F 107 H 18 135/73 98 09/13/18 07:15 95 09/13/18 07:11 113 H 20 94 L Weight Admit Weight 93 lb 4.8 oz Weight 90 lb 4.8 oz I&O: 09/12/18 09/13/18 09/14/18 06:59 06:59 06:59 Intake Total 360 300 Output Total 756 Balance -396 300 Result Diagrams: 09/11/18 04:43 09/12/18 04:34 ROS - Review of Systems All systems: All other ROS were reviewed and found negative. - Medication Medications: Active Medications Generic Name Dose Route Start Last Admin Trade Name Freq PRN Reason Stop Dose Admin Acetaminophen 650 mg 09/08/18 02:51 09/11/18 03:54 Tylenol PO 650 mg Q4H PRN Administration Headache/Fever/Mild Pain (1-3) Albuterol/Ipratropium 3 ml 09/09/18 15:00 09/13/18 14:24 Duoneb NEB 3 ml [id number] ARMANDO Administration Albuterol/Ipratropium 3 ml 09/09/18 11:40 09/10/18 00:45 Duoneb NEB 3 ml [id number] PRN Administration SOB &/or Wheezing Amoxicillin/Clavulanate Potassium 400 mg 09/12/18 09:00 09/13/18 08:42 Augmentin 400mg/5ml Oral Susp PO 400 mg BID ARMANDO Administration Aspirin 325 mg 09/08/18 09:00 09/13/18 08:44 Ecotrin PO 325 mg DAILY ARM[facility]O Administration Carvedilol 25 mg 09/13/18 17:00 09/13/18 16:22 Coreg PO 25 mg BID-WM ARMANDO Administration Enoxaparin Sodium 30 mg 09/12/18 09:00 09/13/18 08:42 Lovenox SC 30 mg 0900 ARMANDO Administration Furosemide 20 mg 09/10/18 09:00 09/13/18 08:44 Lasix PO 20 mg DAILY ARMANDO Administration Lisinopril 5 mg 09/08/18 09:00 09/13/18 08:44 Zestril PO 5 mg DAILY ARM[facility]O Administration Lorazepam 0.5 mg 09/09/18 13:49 09/13/18 16:22 Ativan PO 0.5 mg Q6H PRN Administration Agitation Phosphorus 250 mg 09/10/18 08:00 09/13/18 16:22 Kphos Neutral PO 250 mg TID-WM ARMANDO Administration Saccharomyces Boulardii 250 mg 09/09/18 09:00 09/13/18 08:43 Florastor PO 250 mg DAILY [facility]O Administration Simvastatin 40 mg 09/08/18 21:00 09/12/18 20:16 Zocor PO 40 mg HS ARMANDO Administration - Exam NAD Heart: RRR, no murmur, no gallops, no rubs, normal peripheral pulses. negative : irregular, diminshed peripheral pulses, murmur present, II/IV, III/IV Respiratory: CTAB, no wheezes, no rales, no ronchi, normal chest expansion, no tachypnea, normal percussion Gastrointestinal: soft, non-tender, non-distended, normal bowel sounds, no palpable masses, no hepatomegaly, no splenomegaly, no bruit Extremities: no cyanosis, no clubbing, no edema Neurological: CN's grossly intact, normal sensation to touch, no weakness, no focal deficits, no new deficit Musculoskeletal: normal tone, normal strength, no muscle wasting Psychiatric: normal affect, normal behavior Hosp A/P (1) NSTEMI (non-ST elevated myocardial infarction) Code(s): I21.4 - NON-ST ELEVATION (NSTEMI) MYOCARDIAL INFARCTION Status: Acute (2) Pleural effusion Code(s): J90 - PLEURAL EFFUSION, NOT ELSEWHERE CLASSIFIED Status: Acute (3) Acute systolic heart failure, ACC/AHA stage C Code(s): I50.21 - ACUTE SYSTOLIC (CONGESTIVE) HEART FAILURE Status: Acute (4) CAP (community acquired pneumonia) Code(s): J18.9 - PNEUMONIA, UNSPECIFIED ORGANISM Status: Acute (5) SVT (supraventricular tachycardia) Code(s): I47.1 - SUPRAVENTRICULAR TACHYCARDIA Status: Acute (6) CAD (coronary artery disease) Code(s): I25.10 - ATHSCL HEART DISEASE OF [place] CORONARY ARTERY W/O ANG PCTRS Status: Chronic (7) Dementia Code(s): F03.90 - UNSPECIFIED DEMENTIA WITHOUT BEHAVIORAL DISTURBANCE Status: Chronic Qualifiers: Dementia type: unspecified type Dementia behavioral disturbance: without behavioral disturbance Qualified Code(s): F03.90 - Unspecified dementia without behavioral disturbance (8) HTN (hypertension) Code(s): I10 - ESSENTIAL (PRIMARY) HYPERTENSION Status: Chronic Qualifiers: Hypertension type: essential hypertension Qualified Code(s): I10 - Essential (primary) hypertension (9) Oral phase dysphagia Code(s): R13.11 - DYSPHAGIA, ORAL PHASE Status: Acute - Plan Stable currently with Coreg and Lisinopril for CHF. Coreg for atrial tachycardia. Oral augmentin for pneumonia. Ok to dc to snf, but has had sitter continuously. Will DC the sitter and see if she can do well without that.
[2018-09-13] MEDS: Simvastatin 40 MG TAB PO SCH (21:46)
[2018-09-13] MEDS: Acetaminophen 325 MG TAB PO PRN (21:46)
[2018-09-14] MEDS: Acetaminophen 325 MG TAB PO PRN ×2 (03:45→20:51)
[2018-09-14] MEDS: Lorazepam 0.5 MG TAB PO PRN (03:46)
[2018-09-14] MEDS: Enoxaparin Sodium 30 MG/0.3 ML SYRINGE SC SCH (09:27)
[2018-09-14] MEDS: Aspirin 325 mg Enteric Coated Tablet PO SCH (09:28)
[2018-09-14] MEDS: Saccharomyces boulardii 250 MG CAP PO SCH (09:28)
[2018-09-14] MEDS: Furosemide 20 MG TAB PO SCH (09:28)
[2018-09-14] MEDS: Amoxicillin/Potassium Clav 400 mg/5 ml Oral Suspension PO SCH ×2 (09:28→20:51)
[2018-09-14] MEDS: K-Phos Neutral 250 MG TAB PO SCH ×3 (09:29→17:30)
[2018-09-14] MEDS: Lisinopril 5 MG TAB PO SCH (09:29)
[2018-09-14] MEDS: Carvedilol 25 MG TAB PO SCH ×2 (09:29→17:30)
--- NOTE | 2018-09-14 13:46 | PDOC.HOSPP ---
- Subjective Subjective: Admitted due to worsening SOB. Imaging showed pulmonary infiltrates concerning for Pneumonia and CHF exacerbation. Also found to have elevated troponin. Echo showed acute reduction in EF to 25-30%. Treated with diouretic and optimization of heart failure medications. got some ativan last night and seem sleepy this mormning. No new problem. - Objective Vital Signs & Weight: Vital Signs (12 hours) Temp Pulse Resp BP Pulse Ox 09/14/18 11:23 97.7 F 97 18 105/53 L 94 L 09/14/18 10:22 94 16 95 09/14/18 07:29 97.9 F 102 H 14 125/60 95 09/14/18 07:10 96 09/14/18 07:08 82 16 96 09/14/18 03:48 98.3 F 98 18 123/70 93 L Weight Admit Weight 93 lb 4.8 oz Weight 90 lb 4.8 oz I&O: 09/13/18 09/14/18 09/15/18 06:59 06:59 06:59 Intake Total 300 300 Balance 300 300 Result Diagrams: 09/15/18 05:24 09/15/18 05:24 ROS - Review of Systems All systems: All other ROS were reviewed and found negative. - Medication Medications: Active Medications Generic Name Dose Route Start Last Admin Trade Name Freq PRN Reason Stop Dose Admin Acetaminophen 650 mg 09/08/18 02:51 09/14/18 03:45 Tylenol PO 650 mg Q4H PRN Administration Headache/Fever/Mild Pain (1-3) Albuterol/Ipratropium 3 ml 09/09/18 15:00 09/14/18 10:22 Duoneb NEB 3 ml [id number] ARMANDO Administration Albuterol/Ipratropium 3 ml 09/09/18 11:40 09/10/18 00:45 Duoneb NEB 3 ml [id number] PRN Administration SOB &/or Wheezing Amoxicillin/Clavulanate Potassium 400 mg 09/12/18 09:00 09/14/18 09:28 Augmentin 400mg/5ml Oral Susp PO 400 mg BID ARMANDO Administration Aspirin 325 mg 09/08/18 09:00 09/14/18 09:28 Ecotrin PO 325 mg DAILY ARMANDO Administration Carvedilol 25 mg 09/13/18 17:00 09/14/18 09:29 Coreg PO 25 mg BID-WM ARMANDO Administration Enoxaparin Sodium 30 mg 09/12/18 09:00 09/14/18 09:27 Lovenox SC 30 mg 0900 ARMANDO Administration Furosemide 20 mg 09/10/18 09:00 09/14/18 09:28 Lasix PO 20 mg DAILY ARMANDO Administration Lisinopril 5 mg 09/08/18 09:00 09/14/18 09:29 Zestril PO 5 mg DAILY ARMANDO Administration Phosphorus 250 mg 09/10/18 08:00 09/14/18 12:18 Kphos Neutral PO 250 mg TID-WM ARMANDO Administration Saccharomyces Boulardii 250 mg 09/09/18 09:00 09/14/18 09:28 Florastor PO 250 mg DAILY ARMANDO Administration Simvastatin 40 mg 09/08/18 21:00 09/13/18 21:46 Zocor PO 40 mg HS ARMANDO Administration - Exam NAD (Sleepy but arousable. No distress.) Eye: PERRL, anicteric sclera ENT: normocephalic atraumatic, moist mucosa Neck: supple, no JVD Heart: RRR, normal peripheral pulses (systoklic murmur noted) Respiratory: no ronchi (Fair air entry bilaterally with some transmitted sound. No distress), no tachypnea Extremities: no cyanosis, no edema Neurological: CN's grossly intact, no focal deficits (Sleepy but arousable.) Psychiatric: A&O x 3 Hosp A/P (1) Acute systolic heart failure, ACC/AHA stage C Code(s): I50.21 - ACUTE SYSTOLIC (CONGESTIVE) HEART FAILURE Status: Acute (2) Severe mitral regurgitation Code(s): I34.0 - NONRHEUMATIC MITRAL (VALVE) INSUFFICIENCY Status: Acute (3) Ischemic cardiomyopathy Code(s): I25.5 - ISCHEMIC CARDIOMYOPATHY Status: Acute (4) Atrial fibrillation Code(s): I48.91 - UNSPECIFIED ATRIAL FIBRILLATION Status: Acute (5) Moderate aortic regurgitation Code(s): I35.1 - NONRHEUMATIC AORTIC (VALVE) INSUFFICIENCY Status: Acute (6) COPD (chronic obstructive pulmonary disease) Status: Acute (7) CAP (community acquired pneumonia) Code(s): J18.9 - PNEUMONIA, UNSPECIFIED ORGANISM Status: Acute (8) NSTEMI (non-ST elevated myocardial infarction) Code(s): I21.4 - NON-ST ELEVATION (NSTEMI) MYOCARDIAL INFARCTION Status: Acute Plan: Type 2 (9) Pleural effusion Code(s): J90 - PLEURAL EFFUSION, NOT ELSEWHERE CLASSIFIED Status: Acute (10) CAD (coronary artery disease) Code(s): I25.10 - ATHSCL HEART DISEASE OF [place] CORONARY ARTERY W/O ANG PCTRS Status: Chronic (11) Dementia Code(s): F03.90 - UNSPECIFIED DEMENTIA WITHOUT BEHAVIORAL DISTURBANCE Status: Chronic Qualifiers: Dementia type: unspecified type Dementia behavioral disturbance: without behavioral disturbance Qualified Code(s): F03.90 - Unspecified dementia without behavioral disturbance (12) HTN (hypertension) Code(s): I10 - ESSENTIAL (PRIMARY) HYPERTENSION Status: Chronic Qualifiers: Hypertension type: essential hypertension Qualified Code(s): I10 - Essential (primary) hypertension - Plan DC ativan. Continue other medications. Diet as tolerated. Continue PT/OT. For discharge once placement is concluded.
[2018-09-14] MEDS: Simvastatin 40 MG TAB PO SCH (20:51)
[2018-09-15] MEDS: Acetaminophen 325 MG TAB PO PRN ×2 (00:42→20:14)
[2018-09-15 06:38] LABS: #Eosinphils 0.1 thou/uL (0.0-0.7); #Lymphocytes 1.2 thou/uL (1.20-3.40); #Monocytes 0.9 thou/uL (0.11-0.59); #Neutrophils 11.5 thou/uL (1.40-6.50); %Basophils 0.1 % (0.0-1.0); %Eosinophils 0.9 % (0.0-10.0); %Lymphocytes 8.9 % (21.0-51.0); %Monocytes 6.8 % (0.0-10.0); %Neutrophils 83.3 % (42.0-75.0); Hemoglobin 12.3 g/dL (12.0-16.0); Mean Corpuscular HGB CONC 32.6 g/dL (32.0-36.0); Mean Corpuscular Hemoglobin 30.5 pg (27.0-31.0); Mean Corpuscular Volume 93.6 fL (78.0-98.0); Mean Platelet Volume 8.9 fL (7.4-10.4); Platelet Count 244 thou/uL (130-400); Red Blood Cell (RBC) Count 4.03 mill/uL (4.20-5.40); White Blood Cell (WBC) Count 13.8 thou/uL (4.8-10.8)
[2018-09-15 07:00] LABS: Phosphorus 4.4 mg/dL (2.3-4.7)
[2018-09-15 07:01] LABS: Anion Gap 15 mmol/L (10-20); BUN (Urea Nitrogen) 24 mg/dL (9.8-20.1); Calc. Creatinine Clearance 33 mL/min (70-130); Calcium 9.6 mg/dL (7.8-10.44); Carbon Dioxide 27 mmol/L (23-31); Chloride 98 mmol/L (98-107); Estimated GFR-MDRD 71; Glucose 217 mg/dL (83-110); Potassium 4.7 mmol/L (3.5-5.1); Sodium 135 mmol/L (136-145)
[2018-09-15] MEDS: Lisinopril 5 MG TAB PO SCH (08:24)
[2018-09-15] MEDS: Aspirin 325 mg Enteric Coated Tablet PO SCH (08:24)
[2018-09-15] MEDS: Saccharomyces boulardii 250 MG CAP PO SCH (08:24)
[2018-09-15] MEDS: Furosemide 20 MG TAB PO SCH (08:24)
[2018-09-15] MEDS: Carvedilol 25 MG TAB PO SCH ×2 (08:24→17:41)
[2018-09-15] MEDS: Enoxaparin Sodium 30 MG/0.3 ML SYRINGE SC SCH (08:25)
[2018-09-15] MEDS: K-Phos Neutral 250 MG TAB PO SCH ×3 (08:33→17:41)
[2018-09-15] MEDS: Amoxicillin/Potassium Clav 400 mg/5 ml Oral Suspension PO SCH ×2 (09:46→20:14)
--- NOTE | 2018-09-15 13:00 | PDOC.HOSPP ---
- Subjective Subjective: 88 y/o female admitted due to worsening SOB. Imaging showed pulmonary infiltrates concerning for Pneumonia and CHF exacerbation. Also found to have elevated troponin. Echo showed acute reduction in EF to 25-30%. Treated with diuretic and optimization of heart failure medications. Had an epsisode of respiratory distress earlier today with resolved with breathing treatmemt and oxygen supplementation. - Objective Vital Signs & Weight: Vital Signs (12 hours) Temp Pulse Resp BP Pulse Ox 09/15/18 12:12 95 16 09/15/18 08:34 97.7 F 95 16 138/84 98 09/15/18 08:24 91 09/15/18 08:00 98 09/15/18 06:43 91 18 Weight Admit Weight 93 lb 4.8 oz Weight 90 lb 4.8 oz I&O: 09/14/18 09/15/18 09/16/18 06:59 06:59 06:59 Intake Total 300 720 240 Balance 300 720 240 Result Diagrams: 09/15/18 05:24 09/15/18 05:24 ROS - Review of Systems All systems: All other ROS were reviewed and found negative. - Medication Medications: Active Medications Generic Name Dose Route Start Last Admin Trade Name Freq PRN Reason Stop Dose Admin Acetaminophen 650 mg 09/08/18 02:51 09/15/18 00:42 Tylenol PO 650 mg Q4H PRN Administration Headache/Fever/Mild Pain (1-3) Albuterol/Ipratropium 3 ml 09/09/18 15:00 09/15/18 12:12 Duoneb NEB 3 ml [id number] ARMANDO Administration Albuterol/Ipratropium 3 ml 09/09/18 11:40 09/10/18 00:45 Duoneb NEB 3 ml [id number] PRN Administration SOB &/or Wheezing Amoxicillin/Clavulanate Potassium 400 mg 09/12/18 09:00 09/15/18 09:46 Augmentin 400mg/5ml Oral Susp PO 400 mg BID ARMANDO Administration Aspirin 325 mg 09/08/18 09:00 09/15/18 08:24 Ecotrin PO 325 mg DAILY ARMANDO Administration Carvedilol 25 mg 09/13/18 17:00 09/15/18 08:24 Coreg PO 25 mg BID-WM ARMANDO Administration Enoxaparin Sodium 30 mg 09/12/18 09:00 09/15/18 08:25 Lovenox SC 30 mg 0900 ARMANDO Administration Furosemide 20 mg 09/10/18 09:00 09/15/18 08:24 Lasix PO 20 mg DAILY ARMANDO Administration Lisinopril 5 mg 09/08/18 09:00 09/15/18 08:24 Zestril PO 5 mg DAILY ARMANDO Administration Phosphorus 250 mg 09/10/18 08:00 09/15/18 08:33 Kphos Neutral PO 250 mg TID-WM ARMANDO Administration Saccharomyces Boulardii 250 mg 09/09/18 09:00 09/15/18 08:24 Florastor PO 250 mg DAILY ARMANDO Administration Simvastatin 40 mg 09/08/18 21:00 09/14/18 20:51 Zocor PO 40 mg HS ARMANDO Administration - Exam awake alert (cachetic.) Eye: PERRL, anicteric sclera ENT: normocephalic atraumatic Neck: supple Heart: RRR Respiratory: no wheezes, no ronchi (fair air entry bilaterally with some transmitted sound.) Gastrointestinal: soft, non-tender, non-distended, normal bowel sounds Extremities: no cyanosis, no clubbing, no edema Neurological: CN's grossly intact, no focal deficits Hosp A/P (1) Acute systolic heart failure, ACC/AHA stage C Code(s): I50.21 - ACUTE SYSTOLIC (CONGESTIVE) HEART FAILURE Status: Acute (2) Severe mitral regurgitation Code(s): I34.0 - NONRHEUMATIC MITRAL (VALVE) INSUFFICIENCY Status: Acute (3) Ischemic cardiomyopathy Code(s): I25.5 - ISCHEMIC CARDIOMYOPATHY Status: Acute (4) Atrial fibrillation Code(s): I48.91 - UNSPECIFIED ATRIAL FIBRILLATION Status: Acute (5) Moderate aortic regurgitation Code(s): I35.1 - NONRHEUMATIC AORTIC (VALVE) INSUFFICIENCY Status: Acute (6) COPD (chronic obstructive pulmonary disease) Status: Acute (7) CAP (community acquired pneumonia) Code(s): J18.9 - PNEUMONIA, UNSPECIFIED ORGANISM Status: Acute (8) NSTEMI (non-ST elevated myocardial infarction) Code(s): I21.4 - NON-ST ELEVATION (NSTEMI) MYOCARDIAL INFARCTION Status: Acute (9) Pleural effusion Code(s): J90 - PLEURAL EFFUSION, NOT ELSEWHERE CLASSIFIED Status: Acute (10) CAD (coronary artery disease) Code(s): I25.10 - ATHSCL HEART DISEASE OF [place] CORONARY ARTERY W/O ANG PCTRS Status: Chronic (11) Dementia Code(s): F03.90 - UNSPECIFIED DEMENTIA WITHOUT BEHAVIORAL DISTURBANCE Status: Chronic Qualifiers: Dementia type: unspecified type Dementia behavioral disturbance: without behavioral disturbance Qualified Code(s): F03.90 - Unspecified dementia without behavioral disturbance (12) HTN (hypertension) Code(s): I10 - ESSENTIAL (PRIMARY) HYPERTENSION Status: Chronic Qualifiers: Hypertension type: essential hypertension Qualified Code(s): I10 - Essential (primary) hypertension - Plan Get Repeat CXR Continue current medications Wean off oxygen.
--- NOTE | 2018-09-15 15:40 | RAD ---
Chest one view HISTORY: Dyspnea. COMPARISON: 09/09/2018. FINDINGS: Cardiac silhouette is magnified and enlarged. Pulmonary vasculature is engorged with widesp read reticulonodular interstitial prominence and thickening. Mediastinum is midline with aortic calcification. Patchy bibasilar infiltrates. Lung markings extend beyond the skinfold over the right chest that mimics a pneumothorax. Osseous structures are demineralized. IMPRESSION: Cardiomegaly with pulmonary vascular congestion. Consider CHF. Atherosclerosis. Osteoporosis.
[2018-09-15] MEDS: Simvastatin 40 MG TAB PO SCH (20:14)
[2018-09-16] MEDS: Acetaminophen 325 MG TAB PO PRN (02:16)
[2018-09-16] MEDS: Furosemide 20 MG TAB PO SCH (08:05)
[2018-09-16] MEDS: Aspirin 325 mg Enteric Coated Tablet PO SCH (08:05)
[2018-09-16] MEDS: Saccharomyces boulardii 250 MG CAP PO SCH (08:05)
[2018-09-16] MEDS: Enoxaparin Sodium 30 MG/0.3 ML SYRINGE SC SCH (08:05)
[2018-09-16] MEDS: Lisinopril 5 MG TAB PO SCH (08:05)
[2018-09-16] MEDS: Carvedilol 25 MG TAB PO SCH ×2 (08:05→18:12)
[2018-09-16] MEDS: K-Phos Neutral 250 MG TAB PO SCH ×3 (08:05→18:12)
[2018-09-16] MEDS: Amoxicillin/Potassium Clav 400 mg/5 ml Oral Suspension PO SCH ×2 (11:29→21:19)
[2018-09-16] MEDS: guaiFENesin ER 600 MG TAB PO SCH ×2 (11:29→21:19)
--- NOTE | 2018-09-16 11:34 | PDOC.HOSPP ---
- Subjective Subjective: 88 y/o female dementia, CHF and others admitted due to worsening SOB. Imaging showed pulmonary infiltrates concerning for Pneumonia and CHF exacerbation. Also found to have elevated troponin. Echo showed acute reduction in EF to 25-30 %. Treated with diuretic and optimization of heart failure medications with improvement. Got agitated and aggressive earlier today. calmer during my visit but want her son to come and take her home. No further episode of SOB. Denied fever, chest pain, or SOB. - Objective Vital Signs & Weight: Vital Signs (12 hours) Temp Pulse Resp BP Pulse Ox 09/16/18 10:44 98 12 09/16/18 08:05 98 09/16/18 08:00 94 L 09/16/18 07:23 98.3 F 98 16 154/82 H 94 L 09/16/18 06:44 95 16 91 L 09/16/18 04:30 100 18 95 Weight Admit Weight 93 lb 4.8 oz Weight 90 lb 4.8 oz I&O: 09/15/18 09/16/18 09/17/18 06:59 06:59 06:59 Intake Total 720 1080 240 Balance 720 1080 240 Result Diagrams: 09/15/18 05:24 09/15/18 05:24 ROS - Review of Systems All systems: All other ROS were reviewed and found negative. - Medication Medications: Active Medications Generic Name Dose Route Start Last Admin Trade Name Freq PRN Reason Stop Dose Admin Acetaminophen 650 mg 09/08/18 02:51 09/16/18 02:16 Tylenol PO 650 mg Q4H PRN Administration Headache/Fever/Mild Pain (1-3) Albuterol/Ipratropium 3 ml 09/09/18 15:00 09/16/18 10:44 Duoneb NEB 3 ml [id number] ARMANDO Administration Albuterol/Ipratropium 3 ml 09/09/18 11:40 09/16/18 04:30 Duoneb NEB 3 ml [id number] PRN Administration SOB &/or Wheezing Amoxicillin/Clavulanate Potassium 400 mg 09/12/18 09:00 09/15/18 20:14 Augmentin 400mg/5ml Oral Susp PO 400 mg BID ARMANDO Administration Aspirin 325 mg 09/08/18 09:00 09/16/18 08:05 Ecotrin PO 325 mg DAILY ARMANDO Administration Carvedilol 25 mg 09/13/18 17:00 09/16/18 08:05 Coreg PO 25 mg BID-WM ARMANDO Administration Enoxaparin Sodium 30 mg 09/12/18 09:00 09/16/18 08:05 Lovenox SC 30 mg 0900 ARMANDO Administration Furosemide 20 mg 09/10/18 09:00 09/16/18 08:05 Lasix PO 20 mg DAILY ARMANDO Administration Lisinopril 5 mg 09/08/18 09:00 09/16/18 08:05 Zestril PO 5 mg DAILY ARMANDO Administration Phosphorus 250 mg 09/10/18 08:00 09/16/18 08:05 Kphos Neutral PO 250 mg TID-WM ARMANDO Administration Saccharomyces Boulardii 250 mg 09/09/18 09:00 09/16/18 08:05 Florastor PO 250 mg DAILY ARMANDO Administration Simvastatin 40 mg 09/08/18 21:00 09/15/18 20:14 Zocor PO 40 mg HS ARMANDO Administration - Exam awake alert (cachetic) Eye: anicteric sclera ENT: normocephalic atraumatic Neck: supple, no JVD Heart: RRR Respiratory: no wheezes (Fair air entry with some transmitted sound), no ronchi Gastrointestinal: soft, non-tender, non-distended, normal bowel sounds Extremities: no cyanosis, no edema Neurological: CN's grossly intact, no focal deficits Psychiatric: normal affect (some confusion and memory lapses noted.), A&O x 3 Hosp A/P (1) Acute systolic heart failure, ACC/AHA stage C Code(s): I50.21 - ACUTE SYSTOLIC (CONGESTIVE) HEART FAILURE Status: Acute (2) Severe mitral regurgitation Code(s): I34.0 - NONRHEUMATIC MITRAL (VALVE) INSUFFICIENCY Status: Acute (3) Ischemic cardiomyopathy Code(s): I25.5 - ISCHEMIC CARDIOMYOPATHY Status: Acute (4) Atrial fibrillation Code(s): I48.91 - UNSPECIFIED ATRIAL FIBRILLATION Status: Acute (5) Moderate aortic regurgitation Code(s): I35.1 - NONRHEUMATIC AORTIC (VALVE) INSUFFICIENCY Status: Acute (6) COPD (chronic obstructive pulmonary disease) Status: Acute (7) CAP (community acquired pneumonia) Code(s): J18.9 - PNEUMONIA, UNSPECIFIED ORGANISM Status: Acute (8) NSTEMI (non-ST elevated myocardial infarction) Code(s): I21.4 - NON-ST ELEVATION (NSTEMI) MYOCARDIAL INFARCTION Status: Acute (9) Pleural effusion Code(s): J90 - PLEURAL EFFUSION, NOT ELSEWHERE CLASSIFIED Status: Acute (10) CAD (coronary artery disease) Code(s): I25.10 - ATHSCL HEART DISEASE OF [place] CORONARY ARTERY W/O ANG PCTRS Status: Chronic (11) Dementia Code(s): F03.90 - UNSPECIFIED DEMENTIA WITHOUT BEHAVIORAL DISTURBANCE Status: Chronic Qualifiers: Dementia type: unspecified type Dementia behavioral disturbance: without behavioral disturbance Qualified Code(s): F03.90 - Unspecified dementia without behavioral disturbance (12) HTN (hypertension) Code(s): I10 - ESSENTIAL (PRIMARY) HYPERTENSION Status: Chronic Qualifiers: Hypertension type: essential hypertension Qualified Code(s): I10 - Essential (primary) hypertension - Plan Start low dose zyprexa daily Continue other medicataions Contacted and updated son. Also requesting him to visit mom for a short period today. Awaiting placement Start oral supplement.
[2018-09-16] MEDS ORDERED: OLANZapine 2.5 MG TAB PO SCH (14:00)
[2018-09-16] MEDS ORDERED: Haloperidol Lactate 5 MG/ML VIAL ONE (19:37)
[2018-09-16] MEDS ORDERED: Haloperidol Lactate 5 MG/ML VIAL IM SCH (19:45)
[2018-09-16] MEDS: Simvastatin 40 MG TAB PO SCH (21:19)
[2018-09-17 04:54] LABS: #Basophils 0.1 thou/uL (0.0-0.2); #Eosinphils 0.1 thou/uL (0.0-0.7); #Lymphocytes 1.5 thou/uL (1.20-3.40); #Monocytes 1.1 thou/uL (0.11-0.59); #Neutrophils 4.7 thou/uL (1.40-6.50); %Basophils 0.7 % (0.0-1.0); %Eosinophils 1.9 % (0.0-10.0); %Lymphocytes 19.5 % (21.0-51.0); %Monocytes 14.2 % (0.0-10.0); %Neutrophils 63.7 % (42.0-75.0); Hemoglobin 10.9 g/dL (12.0-16.0); Mean Corpuscular HGB CONC 33.5 g/dL (32.0-36.0); Mean Corpuscular Hemoglobin 30.7 pg (27.0-31.0); Mean Corpuscular Volume 91.8 fL (78.0-98.0); Mean Platelet Volume 8.5 fL (7.4-10.4); Platelet Count 172 thou/uL (130-400); RBC Distribution Width 12.9 % (11.5-14.5); Red Blood Cell (RBC) Count 3.55 mill/uL (4.20-5.40); White Blood Cell (WBC) Count 7.4 thou/uL (4.8-10.8)
[2018-09-17 05:14] LABS: Anion Gap 10 mmol/L (10-20); BUN (Urea Nitrogen) 14 mg/dL (9.8-20.1); Calc. Creatinine Clearance 37 mL/min (70-130); Calcium 9.7 mg/dL (7.8-10.44); Carbon Dioxide 31 mmol/L (23-31); Chloride 100 mmol/L (98-107); Estimated GFR-MDRD 79; Glucose 124 mg/dL (83-110); Potassium 3.8 mmol/L (3.5-5.1); Sodium 137 mmol/L (136-145)
[2018-09-17] MEDS: K-Phos Neutral 250 MG TAB PO SCH ×3 (09:34→16:15)
[2018-09-17] MEDS: Furosemide 20 MG TAB PO SCH (09:34)
[2018-09-17] MEDS: Carvedilol 25 MG TAB PO SCH ×2 (09:34→16:15)
[2018-09-17] MEDS: OLANZapine 2.5 MG TAB PO SCH (09:34)
[2018-09-17] MEDS: Lisinopril 5 MG TAB PO SCH (09:34)
[2018-09-17] MEDS: Saccharomyces boulardii 250 MG CAP PO SCH (09:34)
[2018-09-17] MEDS: Aspirin 325 mg Enteric Coated Tablet PO SCH (09:34)
[2018-09-17] MEDS: guaiFENesin ER 600 MG TAB PO SCH ×2 (09:34→21:36)
[2018-09-17] MEDS: Enoxaparin Sodium 30 MG/0.3 ML SYRINGE SC SCH (09:35)
--- NOTE | 2018-09-17 11:29 | PDOC.HOSPP ---
- Subjective Subjective: Says she feels fine. Mild right frontal headache. Breathing well. - Objective Vital Signs & Weight: Vital Signs (12 hours) Temp Pulse Resp BP Pulse Ox 09/17/18 10:51 98 20 96 09/17/18 09:35 95 09/17/18 08:14 99.8 F H 100 16 155/74 H 95 09/17/18 06:46 128 H 20 98 Weight Admit Weight 93 lb 4.8 oz Weight 90 lb 4.8 oz I&O: 09/16/18 09/17/18 09/18/18 06:59 06:59 06:59 Intake Total 1080 1560 Balance 1080 1560 Result Diagrams: 09/17/18 04:33 09/17/18 04:33 ROS - Review of Systems All systems: All other ROS were reviewed and found negative. - Medication Medications: Active Medications Generic Name Dose Route Start Last Admin Trade Name Freq PRN Reason Stop Dose Admin Acetaminophen 650 mg 09/08/18 02:51 09/16/18 02:16 Tylenol PO 650 mg Q4H PRN Administration Headache/Fever/Mild Pain (1-3) Albuterol/Ipratropium 3 ml 09/09/18 15:00 09/17/18 10:51 Duoneb NEB 3 ml [id number] ARMANDO Administration Albuterol/Ipratropium 3 ml 09/09/18 11:40 09/16/18 22:47 Duoneb NEB 3 ml [id number] PRN Administration SOB &/or Wheezing Amoxicillin/Clavulanate Potassium 400 mg 09/12/18 09:00 09/16/18 21:19 Augmentin 400mg/5ml Oral Susp PO Not Given BID ARMANDO Aspirin 325 mg 09/08/18 09:00 09/17/18 09:34 Ecotrin PO 325 mg DAILY ARMANDO Administration Carvedilol 25 mg 09/13/18 17:00 09/17/18 09:34 Coreg PO 25 mg BID-WM ARMANDO Administration Enoxaparin Sodium 30 mg 09/12/18 09:00 09/17/18 09:35 Lovenox SC 30 mg 0900 ARMANDO Administration Furosemide 20 mg 09/10/18 09:00 09/17/18 09:34 Lasix PO 20 mg DAILY ARMANDO Administration Guaifenesin 600 mg 09/16/18 09:00 09/17/18 09:34 Mucinex PO 600 mg Q12HR ARMANDO Administration Lisinopril 5 mg 09/08/18 09:00 09/17/18 09:34 Zestril PO 5 mg DAILY ARMANDO Administration Olanzapine 2.5 mg 09/17/18 09:00 09/17/18 09:34 Zyprexa PO 2.5 mg DAILY ARMANDO Administration Phosphorus 250 mg 09/10/18 08:00 09/17/18 09:34 Kphos Neutral PO 250 mg TID-WM ARMANDO Administration Saccharomyces Boulardii 250 mg 09/09/18 09:00 09/17/18 09:34 Florastor PO 250 mg DAILY ARMANDO Administration Simvastatin 40 mg 09/08/18 21:00 09/16/18 21:19 Zocor PO Not Given HS ARMANDO - Exam NAD, awake alert Heart: RRR, no murmur, no gallops, no rubs, normal peripheral pulses Respiratory: rales (mild, scattered.), wheezes (mild, scattered.) Extremities: no cyanosis, no clubbing, no edema Skin: normal turgor Neurological: CN's grossly intact Psychiatric: normal affect Hosp A/P (1) NSTEMI (non-ST elevated myocardial infarction) Code(s): I21.4 - NON-ST ELEVATION (NSTEMI) MYOCARDIAL INFARCTION Status: Acute (2) Pleural effusion Code(s): J90 - PLEURAL EFFUSION, NOT ELSEWHERE CLASSIFIED Status: Acute (3) Acute systolic heart failure, ACC/AHA stage C Code(s): I50.21 - ACUTE SYSTOLIC (CONGESTIVE) HEART FAILURE Status: Acute (4) CAP (community acquired pneumonia) Code(s): J18.9 - PNEUMONIA, UNSPECIFIED ORGANISM Status: Acute (5) SVT (supraventricular tachycardia) Code(s): I47.1 - SUPRAVENTRICULAR TACHYCARDIA Status: Acute (6) CAD (coronary artery disease) Code(s): I25.10 - ATHSCL HEART DISEASE OF [place] CORONARY ARTERY W/O ANG PCTRS Status: Chronic (7) Dementia Code(s): F03.90 - UNSPECIFIED DEMENTIA WITHOUT BEHAVIORAL DISTURBANCE Status: Chronic Qualifiers: Dementia type: unspecified type Dementia behavioral disturbance: with behavioral disturbance Qualified Code(s): F03.91 - Unspecified dementia with behavioral disturbance (8) HTN (hypertension) Code(s): I10 - ESSENTIAL (PRIMARY) HYPERTENSION Status: Chronic Qualifiers: Hypertension type: essential hypertension Qualified Code(s): I10 - Essential (primary) hypertension (9) Oral phase dysphagia Code(s): R13.11 - DYSPHAGIA, ORAL PHASE Status: Acute - Plan Medically stable. On ACEI, BB and diuretic for CHF. On oral Augmentin for pneumonia. Oxygen saturations are good on RA. Primary concern is the dementia with behavior disturbance. She has been started on Zyprexa. Seems to be ok at the moment. Spoke with her son Anupam. He said, "Y'all need to give her something for anxiety. She's got dementia and she is just going to be like that until y'all sedate her. We've got to get this thing moving." Dr. Lanza had called him yesterday and asked him to come sit with her. She was great for a while, but later became agitated again. I explained that she is getting the zyprexa now. She looks good for the moment. If she needs more, we can titrate it as needed. We will DC the sitter for now. She looks like she will do better on the Zyprexa.
[2018-09-17] MEDS: Amoxicillin/Potassium Clav 400 mg/5 ml Oral Suspension PO SCH ×2 (13:28→21:36)
[2018-09-17 15:12] VITALS: BMI 17.6
[2018-09-17] MEDS ORDERED: Haloperidol Lactate 5 MG/ML VIAL IM PRN (20:15)
[2018-09-17] MEDS: Simvastatin 40 MG TAB PO SCH (21:36)
[2018-09-18] MEDS: OLANZapine 2.5 MG TAB PO SCH (09:06)
[2018-09-18] MEDS: Saccharomyces boulardii 250 MG CAP PO SCH (09:10)
[2018-09-18] MEDS: K-Phos Neutral 250 MG TAB PO SCH ×3 (09:10→17:18)
[2018-09-18] MEDS: Furosemide 20 MG TAB PO SCH (09:11)
[2018-09-18] MEDS: Lisinopril 5 MG TAB PO SCH (09:11)
[2018-09-18] MEDS: Carvedilol 25 MG TAB PO SCH ×2 (09:11→17:18)
[2018-09-18] MEDS: guaiFENesin ER 600 MG TAB PO SCH ×2 (09:11→20:30)
[2018-09-18] MEDS: Aspirin 325 mg Enteric Coated Tablet PO SCH (09:12)
[2018-09-18] MEDS: Enoxaparin Sodium 30 MG/0.3 ML SYRINGE SC SCH (09:12)
[2018-09-18] MEDS ORDERED: traZODone HCl 50 MG TAB PO PRN (10:44)
[2018-09-18] MEDS: Amoxicillin/Potassium Clav 400 mg/5 ml Oral Suspension PO SCH ×2 (16:35→20:30)
--- NOTE | 2018-09-18 17:39 | PDOC.HOSPP ---
- Subjective Subjective: Feels well. No complaints. - Objective Vital Signs & Weight: Vital Signs (12 hours) Temp Pulse Resp BP Pulse Ox 09/18/18 14:32 96 14 09/18/18 10:28 96 14 09/18/18 09:11 96 09/18/18 07:56 97.7 F 96 18 151/79 H 100 09/18/18 07:13 90 14 Weight Admit Weight 93 lb 4.8 oz Weight 90 lb 4.8 oz I&O: 09/17/18 09/18/18 09/19/18 06:59 06:59 06:59 Intake Total 1560 1080 Balance 1560 1080 Result Diagrams: 09/17/18 04:33 09/17/18 04:33 ROS - Review of Systems All systems: All other ROS were reviewed and found negative. - Medication Medications: Active Medications Generic Name Dose Route Start Last Admin Trade Name Freq PRN Reason Stop Dose Admin Acetaminophen 650 mg 09/08/18 02:51 09/16/18 02:16 Tylenol PO 650 mg Q4H PRN Administration Headache/Fever/Mild Pain (1-3) Albuterol/Ipratropium 3 ml 09/09/18 15:00 09/18/18 14:32 Duoneb NEB 3 ml [id number] ARMANDO Administration Albuterol/Ipratropium 3 ml 09/09/18 11:40 09/16/18 22:47 Duoneb NEB 3 ml [id number] PRN Administration SOB &/or Wheezing Amoxicillin/Clavulanate Potassium 400 mg 09/12/18 09:00 09/18/18 16:35 Augmentin 400mg/5ml Oral Susp PO 400 mg BID ARMANDO Administration Aspirin 325 mg 09/08/18 09:00 09/18/18 09:12 Ecotrin PO 325 mg DAILY ARMANDO Administration Carvedilol 25 mg 09/13/18 17:00 09/18/18 17:18 Coreg PO Not Given BID-[facility] Enoxaparin Sodium 30 mg 09/12/18 09:00 09/18/18 09:12 Lovenox SC 30 mg 0900 ARMANDO Administration Furosemide 20 mg 09/10/18 09:00 09/18/18 09:11 Lasix PO 20 mg DAILY ARMANDO Administration Guaifenesin 600 mg 09/16/18 09:00 09/18/18 09:11 Mucinex PO 600 mg Q12HR ARMANDO Administration Haloperidol Lactate 5 mg 09/17/18 20:15 09/17/18 21:39 Haldol IM 09/18/18 20:16 5 mg ONE PRN Administration Agitation Lisinopril 5 mg 09/08/18 09:00 09/18/18 09:11 Zestril PO 5 mg DAILY ARMANDO Administration Olanzapine 2.5 mg 09/17/18 09:00 09/18/18 09:06 Zyprexa PO 2.5 mg DAILY ARMANDO Administration Phosphorus 250 mg 09/10/18 08:00 09/18/18 17:18 Kphos Neutral PO Not Given TID-WM ARMANDO Saccharomyces Boulardii 250 mg 09/09/18 09:00 09/18/18 09:10 Florastor PO 250 mg DAILY ARMANDO Administration Simvastatin 40 mg 09/08/18 21:00 09/17/18 21:36 Zocor PO 40 mg HS ARMANDO Administration - Exam NAD, awake alert Heart: RRR, no murmur, no gallops, no rubs, normal peripheral pulses Respiratory: CTAB, no wheezes, no rales, no ronchi, normal chest expansion, no tachypnea Gastrointestinal: soft, non-tender, non-distended, normal bowel sounds, no palpable masses, no hepatomegaly, no splenomegaly, no bruit Skin: normal turgor, no lesions, no rashes Musculoskeletal: normal tone Psychiatric: normal affect Hosp A/P (1) NSTEMI (non-ST elevated myocardial infarction) Code(s): I21.4 - NON-ST ELEVATION (NSTEMI) MYOCARDIAL INFARCTION Status: Acute Plan: Type II (2) Pleural effusion Code(s): J90 - PLEURAL EFFUSION, NOT ELSEWHERE CLASSIFIED Status: Acute (3) Acute systolic heart failure, ACC/AHA stage C Code(s): I50.21 - ACUTE SYSTOLIC (CONGESTIVE) HEART FAILURE Status: Acute (4) CAP (community acquired pneumonia) Code(s): J18.9 - PNEUMONIA, UNSPECIFIED ORGANISM Status: Acute (5) SVT (supraventricular tachycardia) Code(s): I47.1 - SUPRAVENTRICULAR TACHYCARDIA Status: Acute (6) CAD (coronary artery disease) Code(s): I25.10 - ATHSCL HEART DISEASE OF [place] CORONARY ARTERY W/O ANG PCTRS Status: Chronic (7) Dementia Code(s): F03.90 - UNSPECIFIED DEMENTIA WITHOUT BEHAVIORAL DISTURBANCE Status: Chronic Qualifiers: Dementia type: unspecified type Dementia behavioral disturbance: with behavioral disturbance Qualified Code(s): F03.91 - Unspecified dementia with behavioral disturbance (8) HTN (hypertension) Code(s): I10 - ESSENTIAL (PRIMARY) HYPERTENSION Status: Chronic Qualifiers: Hypertension type: essential hypertension Qualified Code(s): I10 - Essential (primary) hypertension (9) Oral phase dysphagia Code(s): R13.11 - DYSPHAGIA, ORAL PHASE Status: Acute - Plan Medically stable. Primary issue is the dementia with behavior issues. Has done well without a sitter, but she did require haldol last night. Will add some Trazodone q hs to see if that will improve the nighttime. Zyprexa appears to have helped for the day.
[2018-09-18] MEDS: traZODone HCl 50 MG TAB PO SCH (20:30)
[2018-09-18] MEDS: Simvastatin 40 MG TAB PO SCH (20:30)
[2018-09-19] MEDS: Amoxicillin/Potassium Clav 400 mg/5 ml Oral Suspension PO SCH ×2 (08:43→20:32)
[2018-09-19] MEDS: K-Phos Neutral 250 MG TAB PO SCH ×3 (08:44→17:48)
[2018-09-19] MEDS: OLANZapine 2.5 MG TAB PO SCH (08:44)
[2018-09-19] MEDS: Saccharomyces boulardii 250 MG CAP PO SCH (08:45)
[2018-09-19] MEDS: Aspirin 325 mg Enteric Coated Tablet PO SCH (08:45)
[2018-09-19] MEDS: Carvedilol 25 MG TAB PO SCH ×2 (08:46→17:48)
[2018-09-19] MEDS: Furosemide 20 MG TAB PO SCH (08:47)
[2018-09-19] MEDS: guaiFENesin ER 600 MG TAB PO SCH ×2 (08:47→20:32)
[2018-09-19] MEDS: Lisinopril 5 MG TAB PO SCH (08:47)
[2018-09-19] MEDS: Simvastatin 40 MG TAB PO SCH (20:32)
[2018-09-19] MEDS: traZODone HCl 50 MG TAB PO SCH (20:32)
--- NOTE | 2018-09-19 23:49 | PDOC.HOSPP ---
- Subjective Subjective: Doing well. No complaints. Breathing comfortably. - Objective Vital Signs & Weight: Vital Signs (12 hours) Temp Pulse Resp BP Pulse Ox 09/19/18 19:20 92 18 93 L 09/19/18 19:14 98.3 F 81 18 125/59 L 97 09/19/18 14:32 80 18 Weight Admit Weight 93 lb 4.8 oz Weight 90 lb 4.8 oz I&O: 09/18/18 09/19/18 09/20/18 06:59 06:59 06:59 Intake Total 1080 2350 1500 Balance 1080 2350 1500 Result Diagrams: 09/17/18 04:33 09/17/18 04:33 ROS - Review of Systems All systems: All other ROS were reviewed and found negative. - Medication Medications: Active Medications Generic Name Dose Route Start Last Admin Trade Name Freq PRN Reason Stop Dose Admin Acetaminophen 650 mg 09/08/18 02:51 09/16/18 02:16 Tylenol PO 650 mg Q4H PRN Administration Headache/Fever/Mild Pain (1-3) Albuterol/Ipratropium 3 ml 09/09/18 15:00 09/19/18 19:20 Duoneb NEB 3 ml [id number] ARMANDO Administration Albuterol/Ipratropium 3 ml 09/09/18 11:40 09/16/18 22:47 Duoneb NEB 3 ml [id number] PRN Administration SOB &/or Wheezing Amoxicillin/Clavulanate Potassium 400 mg 09/12/18 09:00 09/19/18 20:32 Augmentin 400mg/5ml Oral Susp PO 400 mg BID ARMANDO Administration Aspirin 325 mg 09/08/18 09:00 09/19/18 08:45 Ecotrin PO 325 mg DAILY ARMANDO Administration Carvedilol 25 mg 09/13/18 17:00 09/19/18 17:48 Coreg PO 25 mg BID-WM ARMANDO Administration Enoxaparin Sodium 30 mg 09/12/18 09:00 09/18/18 09:12 Lovenox SC 30 mg 0900 ARMANDO Administration Furosemide 20 mg 09/10/18 09:00 09/19/18 08:47 Lasix PO 20 mg DAILY ARMANDO Administration Guaifenesin 600 mg 09/16/18 09:00 09/19/18 20:32 Mucinex PO 600 mg Q12HR ARMANDO Administration Lisinopril 5 mg 09/08/18 09:00 09/19/18 08:47 Zestril PO 5 mg DAILY ARMANDO Administration Olanzapine 2.5 mg 09/17/18 09:00 09/19/18 08:44 Zyprexa PO 2.5 mg DAILY ARMANDO Administration Phosphorus 250 mg 09/10/18 08:00 09/19/18 17:48 Kphos Neutral PO 250 mg TID-WM ARMANDO Administration Saccharomyces Boulardii 250 mg 09/09/18 09:00 09/19/18 08:45 Florastor PO 250 mg DAILY ARMANDO Administration Simvastatin 40 mg 09/08/18 21:00 09/19/18 20:32 Zocor PO 40 mg HS ARMANDO Administration Trazodone HCl 50 mg 09/18/18 21:00 09/19/18 20:32 Desyrel PO 50 mg HS ARMANDO Administration - Exam NAD Heart: RRR, no murmur, no gallops, no rubs, normal peripheral pulses Respiratory: no wheezes, rales (Minimal basilar.) Gastrointestinal: soft, non-tender, non-distended, normal bowel sounds, no palpable masses, no hepatomegaly, no splenomegaly, no bruit Musculoskeletal: normal tone Psychiatric: normal affect, not oriented Hosp A/P (1) NSTEMI (non-ST elevated myocardial infarction) Code(s): I21.4 - NON-ST ELEVATION (NSTEMI) MYOCARDIAL INFARCTION Status: Acute (2) Pleural effusion Code(s): J90 - PLEURAL EFFUSION, NOT ELSEWHERE CLASSIFIED Status: Acute (3) Acute systolic heart failure, ACC/AHA stage C Code(s): I50.21 - ACUTE SYSTOLIC (CONGESTIVE) HEART FAILURE Status: Acute (4) CAP (community acquired pneumonia) Code(s): J18.9 - PNEUMONIA, UNSPECIFIED ORGANISM Status: Acute (5) SVT (supraventricular tachycardia) Code(s): I47.1 - SUPRAVENTRICULAR TACHYCARDIA Status: Acute (6) CAD (coronary artery disease) Code(s): I25.10 - ATHSCL HEART DISEASE OF [place] CORONARY ARTERY W/O ANG PCTRS Status: Chronic (7) Dementia Code(s): F03.90 - UNSPECIFIED DEMENTIA WITHOUT BEHAVIORAL DISTURBANCE Status: Chronic Qualifiers: Dementia type: unspecified type Dementia behavioral disturbance: with behavioral disturbance Qualified Code(s): F03.91 - Unspecified dementia with behavioral disturbance (8) HTN (hypertension) Code(s): I10 - ESSENTIAL (PRIMARY) HYPERTENSION Status: Chronic Qualifiers: Hypertension type: essential hypertension Qualified Code(s): I10 - Essential (primary) hypertension (9) Oral phase dysphagia Code(s): R13.11 - DYSPHAGIA, ORAL PHASE Status: Acute - Plan She did well overnight last night. Did not require any further PRN medications. Did not receive a decision from facility today as was expected. Apparently they will reassess her again tomorrow. Medically stable for discharge.
[2018-09-20] MEDS: Carvedilol 25 MG TAB PO SCH ×2 (08:54→16:47)
[2018-09-20] MEDS: Saccharomyces boulardii 250 MG CAP PO SCH (08:54)
[2018-09-20] MEDS: Aspirin 325 mg Enteric Coated Tablet PO SCH (08:54)
[2018-09-20] MEDS: K-Phos Neutral 250 MG TAB PO SCH ×3 (08:54→16:47)
[2018-09-20] MEDS: Lisinopril 5 MG TAB PO SCH (08:54)
[2018-09-20] MEDS: Enoxaparin Sodium 30 MG/0.3 ML SYRINGE SC SCH (08:55)
[2018-09-20] MEDS: OLANZapine 2.5 MG TAB PO SCH (08:55)
[2018-09-20] MEDS: Furosemide 20 MG TAB PO SCH (08:55)
[2018-09-20] MEDS: guaiFENesin ER 600 MG TAB PO SCH (08:55)
[2018-09-20] MEDS: Amoxicillin/Potassium Clav 400 mg/5 ml Oral Suspension PO SCH (08:59)
--- NOTE | 2018-09-20 09:50 | PDOC.HOSPP ---
- Subjective Subjective: 88 y/o female dementia, CHF and others admitted due to worsening SOB. Imaging showed pulmonary infiltrates concerning for Pneumonia and CHF exacerbation. Also found to have elevated troponin. Echo showed acute reduction in EF to 25-30 %. Treated with diuretic and optimization of heart failure medications with improvement. Had an episode of resspiratory distress and tachycardia which improved with breathing treatment and oxygen supplementation. Calm and comfortable currently - Objective Vital Signs & Weight: Vital Signs (12 hours) Temp Pulse Resp BP BP Pulse Ox 09/20/18 08:54 109 H 117/63 09/20/18 07:40 98.3 F 109 H 32 H 199/86 H 90 L 09/20/18 07:38 116 H 39 H 100 09/20/18 00:31 111 H 18 96 Weight Admit Weight 93 lb 4.8 oz Weight 90 lb 4.8 oz I&O: 09/19/18 09/20/18 09/21/18 06:59 06:59 06:59 Intake Total 2350 1999 Balance 2350 1999 Result Diagrams: 09/17/18 04:33 09/17/18 04:33 ROS - Review of Systems All systems: All other ROS were reviewed and found negative. - Medication Medications: Active Medications Generic Name Dose Route Start Last Admin Trade Name Freq PRN Reason Stop Dose Admin Acetaminophen 650 mg 09/08/18 02:51 09/16/18 02:16 Tylenol PO 650 mg Q4H PRN Administration Headache/Fever/Mild Pain (1-3) Albuterol/Ipratropium 3 ml 09/09/18 15:00 09/20/18 07:38 Duoneb NEB 3 ml [id number] ARMANDO Administration Albuterol/Ipratropium 3 ml 09/09/18 11:40 09/20/18 00:31 Duoneb NEB 3 ml [id number] PRN Administration SOB &/or Wheezing Amoxicillin/Clavulanate Potassium 400 mg 09/12/18 09:00 09/20/18 08:59 Augmentin 400mg/5ml Oral Susp PO 400 mg BID ARMANDO Administration Aspirin 325 mg 09/08/18 09:00 09/20/18 08:54 Ecotrin PO 325 mg DAILY ARMANDO Administration Carvedilol 25 mg 09/13/18 17:00 09/20/18 08:54 Coreg PO 25 mg BID-WM ARMANDO Administration Enoxaparin Sodium 30 mg 09/12/18 09:00 09/20/18 08:55 Lovenox SC 30 mg 0900 ARMANDO Administration Furosemide 20 mg 09/10/18 09:00 09/20/18 08:55 Lasix PO 20 mg DAILY ARMANDO Administration Guaifenesin 600 mg 09/16/18 09:00 09/20/18 08:55 Mucinex PO 600 mg Q12HR ARMANDO Administration Lisinopril 5 mg 09/08/18 09:00 09/20/18 08:54 Zestril PO 5 mg DAILY ARMANDO Administration Olanzapine 2.5 mg 09/17/18 09:00 09/20/18 08:55 Zyprexa PO 2.5 mg DAILY ARMANDO Administration Phosphorus 250 mg 09/10/18 08:00 09/20/18 08:54 Kphos Neutral PO 250 mg TID-WM ARMANDO Administration Saccharomyces Boulardii 250 mg 09/09/18 09:00 09/20/18 08:54 Florastor PO 250 mg DAILY ARMANDO Administration Sertraline HCl 25 mg 09/20/18 09:00 09/20/18 09:47 Zoloft PO 25 mg DAILY ARMANDO Administration Simvastatin 40 mg 09/08/18 21:00 09/19/18 20:32 Zocor PO 40 mg HS ARMANDO Administration Trazodone HCl 50 mg 09/18/18 21:00 09/19/18 20:32 Desyrel PO 50 mg HS ARMANDO Administration - Exam awake alert (Chronically ill looking and cachetic.) Eye: anicteric sclera ENT: normocephalic atraumatic Heart: RRR Respiratory: no wheezes, no rales, no ronchi Gastrointestinal: soft, non-tender, non-distended, normal bowel sounds Extremities: no cyanosis, no clubbing, no edema Neurological: CN's grossly intact, no focal deficits Hosp A/P (1) Acute systolic heart failure, ACC/AHA stage C Code(s): I50.21 - ACUTE SYSTOLIC (CONGESTIVE) HEART FAILURE Status: Acute (2) Severe mitral regurgitation Code(s): I34.0 - NONRHEUMATIC MITRAL (VALVE) INSUFFICIENCY Status: Acute (3) Ischemic cardiomyopathy Code(s): I25.5 - ISCHEMIC CARDIOMYOPATHY Status: Acute (4) Atrial fibrillation Code(s): I48.91 - UNSPECIFIED ATRIAL FIBRILLATION Status: Acute (5) Moderate aortic regurgitation Code(s): I35.1 - NONRHEUMATIC AORTIC (VALVE) INSUFFICIENCY Status: Acute (6) COPD (chronic obstructive pulmonary disease) Status: Acute (7) CAP (community acquired pneumonia) Code(s): J18.9 - PNEUMONIA, UNSPECIFIED ORGANISM Status: Acute (8) NSTEMI (non-ST elevated myocardial infarction) Code(s): I21.4 - NON-ST ELEVATION (NSTEMI) MYOCARDIAL INFARCTION Status: Acute (9) Pleural effusion Code(s): J90 - PLEURAL EFFUSION, NOT ELSEWHERE CLASSIFIED Status: Acute (10) CAD (coronary artery disease) Code(s): I25.10 - ATHSCL HEART DISEASE OF [place] CORONARY ARTERY W/O ANG PCTRS Status: Chronic (11) Dementia Code(s): F03.90 - UNSPECIFIED DEMENTIA WITHOUT BEHAVIORAL DISTURBANCE Status: Chronic Qualifiers: Dementia type: unspecified type Dementia behavioral disturbance: with behavioral disturbance Qualified Code(s): F03.91 - Unspecified dementia with behavioral disturbance (12) HTN (hypertension) Code(s): I10 - ESSENTIAL (PRIMARY) HYPERTENSION Status: Chronic Qualifiers: Hypertension type: essential hypertension Qualified Code(s): I10 - Essential (primary) hypertension (13) Panic anxiety syndrome Code(s): F41.0 - PANIC DISORDER [EPISODIC PAROXYSMAL ANXIETY] Status: Acute - Plan Start sertraline 25 mg daily with a view to titratting dose up. Continue other treatments. Get CBC and BMP Awaiting placement. Wean off oxygen as tolerated.
[2018-09-20 10:31] LABS: #Basophils 0.1 thou/uL (0.0-0.2); #Eosinphils 0.1 thou/uL (0.0-0.7); #Lymphocytes 1.1 thou/uL (1.20-3.40); #Monocytes 0.4 thou/uL (0.11-0.59); #Neutrophils 7.5 thou/uL (1.40-6.50); %Basophils 0.6 % (0.0-1.0); %Eosinophils 1.1 % (0.0-10.0); %Lymphocytes 11.6 % (21.0-51.0); %Monocytes 4.5 % (0.0-10.0); %Neutrophils 82.2 % (42.0-75.0); Hemoglobin 11.2 g/dL (12.0-16.0); Mean Corpuscular HGB CONC 32.2 g/dL (32.0-36.0); Mean Corpuscular Volume 93.1 fL (78.0-98.0); Mean Platelet Volume 8.9 fL (7.4-10.4); Platelet Count 152 thou/uL (130-400); RBC Distribution Width 13.2 % (11.5-14.5); Red Blood Cell (RBC) Count 3.73 mill/uL (4.20-5.40); White Blood Cell (WBC) Count 9.2 thou/uL (4.8-10.8)
[2018-09-20 10:48] LABS: Anion Gap 13 mmol/L (10-20); BUN (Urea Nitrogen) 15 mg/dL (9.8-20.1); Calc. Creatinine Clearance 35 mL/min (70-130); Calcium 9.7 mg/dL (7.8-10.44); Carbon Dioxide 27 mmol/L (23-31); Chloride 104 mmol/L (98-107); Estimated GFR-MDRD 75; Glucose 133 mg/dL (83-110); Magnesium 1.9 mg/dL (1.6-2.6); Potassium 4.8 mmol/L (3.5-5.1); Sodium 139 mmol/L (136-145)
[2018-09-20 17:07] VITALS: BP 148/80; TEMP 97.9
--- NOTE | 2018-09-21 07:42 | DIS ---
DATE OF ADMISSION: 09/07/2018 DATE OF DISCHARGE: 09/20/2018 DISCHARGE DIAGNOSES: 1. Acute respiratory failure with hypoxia. 2. Acute systolic heart failure. 3. Severe mitral regurgitation. 4. Ischemic cardiomyopathy with ejection fraction in 30s. 5. Moderate aortic regurgitation. 6. Atrial fibrillation (paroxysmal). 7. Fhv-OA-uhmnbovmc myocardial infarction. 8. Pleural effusion. 9. Community-acquired pneumonia. 10. Chronic obstructive pulmonary disease with possible exacerbation. 11. Dementia. 12. Panic attack. 13. Hypertension. CONSULTS: Cardiology. HOSPITAL COURSE: An 88-year-old female with known history of dementia, CHF, and others, admitted due to worsening shortness of breath. Imaging showed pulmonary infiltrate concerning for pneumonia and CHF exacerbation. The patient was started on broad-spectrum antibiotics, diuretics, and oxygen supplementation. She also was found to have elevated troponin consistent with [id number]-[id number] myocardial infarction. Cardiology consult was obtained and echocardiogram showed acute reduction in the EF to 25% to 30%. Cardiology recommended optimization of medical management, and heart failure medications were optimized. Respiratory distress improved and oxygen was weaned off. However, the patient had worsening of dementia associated with agitation and confusion requiring some benzodiazepine. The patient also has episodes of tachycardia and tachypnea as well as agitation, which was felt to be panic attack, hence she was started on sertraline with a view to titrating those optimally. The patient improved and remained stable and was subsequently discharged to long term facility for further restorative therapy. Of note, hospital stay was prolonged due to periods taking to arrange for long term facility. DISCHARGE DISPOSITION: alf facility. DISCHARGE CONDITION: Improved. DISCHARGE MEDICATIONS: See discharge med rec. TIME SPENT: This discharge took more than 30 minutes. Job ID: [id number]
== END 2018-09-20 17:08 | DRG 280 ==
LOC: ERS 14:59 → 2NO 17:40 → T4-A 09-14 14:42
PROVIDERS: ADMIT Internal Medicine; ATTEND Internal Medicine
DX: I11.0 Hypertensive heart disease with heart failure (principal); I21.A1 Myocardial infarction type 2; J18.9 Pneumonia, unspecified organism; J44.1 Chronic obstructive pulmonary disease with (acute) exacerbation; I47.1 Supraventricular tachycardia; J44.0 Chronic obstructive pulmonary disease with (acute) lower respiratory infection; Z51.5 Encounter for palliative care; I50.23 Acute on chronic systolic (congestive) heart failure; Z66 Do not resuscitate; F03.90 Unspecified dementia, unspecified severity, without behavioral disturbance, psychotic disturbance, mood disturbance, and anxiety; I48.91 Unspecified atrial fibrillation; M19.90 Unspecified osteoarthritis, unspecified site; I25.10 Atherosclerotic heart disease of native coronary artery without angina pectoris; I48.0 Paroxysmal atrial fibrillation; R13.11 Dysphagia, oral phase; I25.5 Ischemic cardiomyopathy; I08.0 Rheumatic disorders of both mitral and aortic valves; F41.0 Panic disorder [episodic paroxysmal anxiety]; Z87.891 Personal history of nicotine dependence; Z79.52 Long term (current) use of systemic steroids; Z79.899 Other long term (current) drug therapy; I25.2 Old myocardial infarction; Z86.711 Personal history of pulmonary embolism
CPT/HCPCS: 36415; 71045; 80048; 80053; 80069; 82553; 83735; 83880; 84100; 84443; 84484; 85014; 85018; 85025; 85049; 86140; 87040; 93005; 93010; 93306; 94640; 96365; 96366; 96372; 96375; J0692; J1200; J1630; J1650; J1940; J1956; J2060; J2930; J3490; J7620

== ENCOUNTER 2019-01-04 13:36 | Emergency (ER) | payer BC, MEDICARE ==
--- NOTE | 2019-01-04 15:08 | RAD ---
2 VIEWS ABDOMEN AND UPRIGHT VIEW CHEST: Date: 01/04/19 COMPARISON: None. HISTORY: Constipation with recent fecal impaction. FINDINGS: Supine and upright views of the abdomen and upright view of the chest shows a nonspecific, nonobstruc samaria bowel gas pattern. Air and stool are seen in the rectum. No significant stool retention seen. No free air or air fluid levels are seen on upright examination. Degenerative changes are seen in the spine. The cardiomediastinal silhouette is upper limits of anival l in size. There is no evidence of consolidation, mass, or pleural effusion. IMPRESSION: No evidence of obstruction. POS: CET
[2019-01-04 15:41] LABS: Bilirubin Negative (Negative); Blood, Urine Negative (Negative); Clarity Clear (Clear); Glucose, Urine (Dipstick) Normal (Negative); Leukocyte Negative Leu/uL (Negative); Nitrite Negative (Negative); Protein, Urine (Dipstick) Negative (Neg-Trace); Urobilinogen Normal mg/dL (Less than 2)
== END 2019-01-04 17:25 | disposition home or self-care (01) ==
LOC: ERS 13:36
DX: F03.90 Unspecified dementia, unspecified severity, without behavioral disturbance, psychotic disturbance, mood disturbance, and anxiety (principal); J44.9 Chronic obstructive pulmonary disease, unspecified; I10 Essential (primary) hypertension; Z79.899 Other long term (current) drug therapy
CPT/HCPCS: 51701; 74022; 81003; 87086; A4353